=== PATIENT | female | born 1950 | race American Indian/Alaskan Native ===

== ENCOUNTER 2018-01-14 04:42 | Emergency (ER) | payer MEDICARE, OTHER ==
--- NOTE | 2018-01-14 05:58 | EDPHYS ---
Physician Documentation [facility] Name: Risa Estrada Age: 67 yrs Sex: Female : 1950 Arrival Date: 01/14/2018 Time: 04:45 Bed 13 Private MD: Maikol Chowdhury H ED Physician Albin Werner HPI: 01/14 05:59 This 67 yrs old Other Female presents to ER via Ambulatory with complaints of Cough. gs 05:59 The patient or guardian reports cough, that is intermittent, flu symptoms, arthralgias, gs low-grade fever. Onset: The symptoms/episode began/occurred yesterday. Severity of symptoms: At their worst the symptoms were moderate, in the emergency department the symptoms are unchanged. Modifying factors: the symptoms are aggravated by nothing. Associated signs and symptoms: Pertinent positives: fever, Pertinent negatives: chest pain. The patient has experienced similar episodes in the past, a few times. Historical: - Allergies: 04:56 No Known Allergies; ak1 - Home Meds: 04:56 amlodipine 10 mg tab 1 tab once daily [Active]; losartan 100 mg oral tab 1 tab once ak1 daily [Active]; Bystolic 10 mg oral tab 1 tab once daily [Active]; - PMHx: 04:56 Hypertension; ak1 - PSHx: 04:56 Hysterectomy; Cholecystectomy; ak1 - Immunization history:: Adult Immunizations up to date, Flu vaccine is up to date. - Social history:: Smoking status: Patient/guardian denies using tobacco. - Ebola Screening: : No symptoms or risks identified at this time. ROS: 05:59 ENT: Positive for nasal discharge, rhinorrhea. gs 05:59 All other systems are negative. Exam: 05:59 Head/Face: Normocephalic, atraumatic. Eyes: Pupils equal round and reactive to light, gs extra-ocular motions intact. Lids and lashes normal. Conjunctiva and sclera are non-icteric and not injected. Cornea within normal limits. Periorbital areas with no swelling, redness, or edema. ENT: Nares patent. No nasal discharge, no septal abnormalities noted. Tympanic membranes are normal and external auditory canals are clear. Oropharynx with no redness, swelling, or masses, exudates, or evidence of obstruction, uvula midline. Mucous membranes moist. Neck: Trachea midline, no thyromegaly or masses palpated, and no cervical lymphadenopathy. Supple, full range of motion without nuchal rigidity, or vertebral point tenderness. No Meningismus. Chest/axilla: Normal chest wall appearance and motion. Nontender with no deformity. No lesions are appreciated. Cardiovascular: Regular rate and rhythm with a normal S1 and S2. No gallops, murmurs, or rubs. Normal PMI, no JVD. No pulse deficits. Respiratory: Lungs have equal breath sounds bilaterally, clear to auscultation and percussion. No rales, rhonchi or wheezes noted. No increased work of breathing, no retractions or nasal flaring. Abdomen/GI: Soft, non-tender, with normal bowel sounds. No distension or tympany. No guarding or rebound. No evidence of tenderness throughout. Back: No spinal tenderness. No costovertebral tenderness. Full range of motion. Skin: Warm, dry with normal turgor. Normal color with no rashes, no lesions, and no evidence of cellulitis. MS/ Extremity: Pulses equal, no cyanosis. Neurovascular intact. Full, normal range of motion. Neuro: Awake and alert, GCS 15, oriented to person, place, time, and situation. Cranial nerves II-XII grossly intact. Motor strength 5/5 in all extremities. Sensory grossly intact. Cerebellar exam normal. Normal gait. 05:59 Constitutional: The patient appears alert, awake. Vital Signs: 04:52 BP 142 / 80; Pulse 94; Resp 18; Temp 99.1; Pulse Ox 99% on R/A; Weight 68.04 kg (R); ak1 Height 5 ft. 2 in. (157.48 cm) (R); Pain 4/10; 06:10 BP 121 / 77; Pulse 68; Resp 16; Pulse Ox 99% on R/A; jb4 04:52 Body Mass Index 27.44 (68.04 kg, 157.48 cm) ak1 MDM: 05:12 Patient medically screened. gs 05:59 Differential Diagnosis: Influenza Upper Respiratory Infection Viral Syndrome Pneumonia. gs Data reviewed: vital signs, nurses notes. Counseling: I had a detailed discussion with the patient and/or guardian regarding: the historical points, exam findings, and any diagnostic results supporting the discharge/admit diagnosis, lab results, radiology results, the need for outpatient follow up. Response to treatment: the patient's symptoms have markedly improved after treatment. 01/14 04:53 Order name: Flu; Complete Time: 05:52 jb4 01/14 05:13 Order name: XRAY Chest Pa And Lat (2 Views) Administered Medications: No medications were administered Disposition: 01/14/18 05:58 Discharged to Home. Impression: Acute upper respiratory infection, unspecified. - Condition is Stable. - Discharge Instructions: Upper Respiratory Infection, Adult. - Medication Reconciliation Form, Thank You Letter, Antibiotic Education, Prescription Opioid Use form. - Follow up: Private Physician; When: 2 - 3 days; Reason: Re-evaluation by your physician. Signatures: Dispatcher [employer] EDMS Anne-Marie Mcknight RN RN ak1 Luis Eduardo Zabala RN RN jb4 Albin Werner MD MD gs Corrections: (The following items were deleted from the chart) 06:04 05:58 01/14/2018 05:58 Discharged to Home. Impression: Acute upper respiratory gs infection, unspecified. Condition is Stable. Forms are Medication Reconciliation Form, Thank You Letter, Antibiotic Education, Prescription Opioid Use. Follow up: Emergency Department; When: 2 - 3 days; Reason: Re-evaluation by your physician. 06:11 06:04 01/14/2018 05:58 Discharged to Home. Impression: Acute upper respiratory jb4 infection, unspecified. Condition is Stable. Discharge Instructions: Upper Respiratory Infection, Adult. Forms are Medication Reconciliation Form, Thank You Letter, Antibiotic Education, Prescription Opioid Use. Follow up: Private Physician; When: 2 - 3 days; Reason: Re-evaluation by your physician.
--- NOTE | 2018-01-14 05:58 | ER ---
Nurse's Notes [facility] Name: Risa Estrada Age: 67 yrs Sex: Female : 1950 Arrival Date: 01/14/2018 Time: 04:45 Bed 13 Private MD: Maikol Chowdhury H Diagnosis: Acute upper respiratory infection, unspecified Presentation: 01/14 04:52 Presenting complaint: Patient states: cough, headache and body aches that started last ak1 night. pt family stated he thinks pt has the flu. Transition of care: patient was not received from another setting of care. Onset of symptoms was January 14, 2018. Risk Assessment: Do you want to hurt yourself or someone else? Patient reports no desire to harm self or others. Initial Sepsis Screen: Does the patient meet any 2 criteria? No. Patient's initial sepsis screen is negative. Does the patient have a suspected source of infection? No. Patient's initial sepsis screen is negative. Care prior to arrival: None. 04:52 Method Of Arrival: Ambulatory ak1 04:52 Acuity: ISIS 4 ak1 Historical: - Allergies: 04:56 No Known Allergies; ak1 - Home Meds: 04:56 amlodipine 10 mg tab 1 tab once daily [Active]; losartan 100 mg oral tab 1 tab once ak1 daily [Active]; Bystolic 10 mg oral tab 1 tab once daily [Active]; - PMHx: 04:56 Hypertension; ak1 - PSHx: 04:56 Hysterectomy; Cholecystectomy; ak1 - Immunization history:: Adult Immunizations up to date, Flu vaccine is up to date. - Social history:: Smoking status: Patient/guardian denies using tobacco. - Ebola Screening: : No symptoms or risks identified at this time. Screenin:04 Abuse screen: Denies threats or abuse. Nutritional screening: No deficits noted. jb4 Tuberculosis screening: No symptoms or risk factors identified. Fall Risk None identified. Assessment: 05:04 General: Appears in no apparent distress. comfortable, Behavior is calm, cooperative, jb4 appropriate for age. Pain: Complains of pain in Headache. Pain does not radiate. Pain currently is 5 out of 10 on a pain scale. Neuro: Level of Consciousness is awake, alert, obeys commands, Oriented to person, place, time, situation. Cardiovascular: Heart tones S1 S2 present Patient's skin is warm and dry. Respiratory: Reports cough that is Airway is patent Respiratory effort is even, unlabored, Respiratory pattern is regular, symmetrical, Breath sounds are clear bilaterally. GI: Reports nausea. : No signs and/or symptoms were reported regarding the genitourinary system. EENT: No signs and/or symptoms were reported regarding the EENT system. Derm: Skin is intact, Skin is pink, warm \T\ dry. Musculoskeletal: Circulation, motion, and sensation intact. 05:45 Reassessment: Pt back from x-ray. jb4 06:10 Reassessment: Patient appears in no apparent distress at this time. Patient and/or jb4 family updated on plan of care and expected duration. Pain level reassessed. Patient is alert, oriented x 3, equal unlabored respirations, skin warm/dry/pink. Vital Signs: 04:52 BP 142 / 80; Pulse 94; Resp 18; Temp 99.1; Pulse Ox 99% on R/A; Weight 68.04 kg (R); ak1 Height 5 ft. 2 in. (157.48 cm) (R); Pain 4/10; 06:10 BP 121 / 77; Pulse 68; Resp 16; Pulse Ox 99% on R/A; jb4 04:52 Body Mass Index 27.44 (68.04 kg, 157.48 cm) ak1 ED Course: 04:45 Patient arrived in ED. es 04:45 Maikol Chowdhury DO is Private Physician. es 04:52 Arm band placed on Patient placed in an exam room, on a stretcher, on pulse oximetry, ak1 Patient notified of wait time. 04:53 Luis Eduardo Zabala, RN is Primary Nurse. jb4 04:53 Triage completed. ak1 05:04 Patient has correct armband on for positive identification. Placed in gown. Bed in low jb4 position. Call light in reach. Side rails up X 1. Pulse ox on. NIBP on. 05:12 Albin Werner MD is Attending Physician. gs 05:38 Patient moved to radiology via wheelchair. kw 05:38 X-ray completed. Patient tolerated procedure well. kw 05:38 Patient moved back from radiology. kw 05:39 XRAY Chest Pa And Lat (2 Views) In Process Unspecified. EDMS 06:10 No provider procedures requiring assistance completed. Patient did not have IV access jb4 during this emergency room visit. Administered Medications: No medications were administered Outcome: 05:58 Discharge ordered by . 06:10 Discharged to home ambulatory. jb4 06:10 Condition: stable 06:10 Discharge instructions given to patient, family, Instructed on discharge instructions, follow up and referral plans. Demonstrated understanding of instructions, follow-up care. 06:11 Patient left the ED. jb4 Signatures: Dispatcher [employer] EDJasmina Peña Kimberlee kw Krenek, Amber, RN RN ak1 Luis Eduardo Zabala RN RN jb4 Albin Werner MD MD gs
[2018-01-14 06:17] VITALS: TEMP 99.1; O2SAT 99
[2018-01-14 06:18] VITALS: BP 121/77
--- NOTE | 2018-01-14 08:11 | RAD REPORT ---
EXAM DESCRIPTION: RAD - Chest Pa And Lat (2 Views) - 01/14/2018 5:40 am CLINICAL HISTORY: COUGH Chest pain. COMPARISON: CHEST PA AND LAT 2 VIEW dated 07/31/2011; CHEST PA AND LAT 2 VIEW dated 06/07/2011; CHEST SINGLE VIEW dated 05/17/2011; CHEST SINGLE VIEW dated 05/16/2011 FINDINGS: The lungs are clear. The heart is mildly enlarged in size. No displaced fractures. Cholecy stectomy clips. IMPRESSION: Mild cardiomegaly.
== END 2018-01-14 06:11 | disposition home or self-care (01) ==
LOC: ER 04:42
DX: J06.9 Acute upper respiratory infection, unspecified (principal); I51.7 Cardiomegaly; I10 Essential (primary) hypertension; Z79.899 Other long term (current) drug therapy
CPT/HCPCS: 71046; 87804; 99283

== ENCOUNTER 2019-11-07 14:55 | Observation (INO) | payer MEDICARE ==
[2019-11-07] MEDS ORDERED: ASPIRIN 81 MG CHEWABLE TABLET ONE (15:24)
[2019-11-07] MEDS ORDERED: NA CHLORIDE 0.9% 1,000 ML ONE (15:24)
[2019-11-07 15:40] LABS: Basophils % 0.5 % (0-1.3); Hematocrit 39.6 % (36.0-45.0); Lymphocytes % 33.5 % (15.3-44.8); MPV 8.8 fL (7.6-11.3); RBC Red Blood Cell Count 4.68 M/uL (3.86-4.86)
--- NOTE | 2019-11-07 15:45 | RAD REPORT ---
EXAM DESCRIPTION: RAD - Chest Single View - 11/07/2019 3:37 pm CLINICAL HISTORY: CHEST PAIN Chest pain. COMPARISON: Chest Pa And Lat (2 Views) dated 01/14/2018; CHEST PA AND LAT 2 VIEW dated 07/31/2011; ANG[facility] ST PA AND LAT 2 VIEW dated 06/07/2011; CHEST SINGLE VIEW dated 05/17/2011 FINDINGS: Portable technique limits examination quality. The lungs are grossly clear. The heart is normal in size. No displaced fractures. IMPRESSION: No acute intrathoracic process suspected.
[2019-11-07 16:00] LABS: ALT/SGPT 76 U/L (12-78); AST/SGOT 43 U/L (15-37); Alkaline Phosphatase 88 U/L (45-117); BUN Blood Urea Nitrogen 19 mg/dL (7-18); Bicarbonate 26 mmol/L (21-32); Bilirubin Direct 0.1 mg/dL (0-0.2); Bilirubin Total 0.4 mg/dL (0.2-1.0); Glucose Level 127 mg/dL (74-106); Lipase 180 U/L (73-393); Magnesium 2.2 mg/dL (1.8-2.4); NT PRO-BNP 41 pg/mL (<125); Potassium 3.8 mmol/L (3.5-5.1); Protein, Total 8.1 g/dL (6.4-8.2); Sodium Level 137 mmol/L (136-145); Troponin (Emerg Dept Use Only) < 0.02 ng/mL (0.0-0.045)
--- NOTE | 2019-11-07 16:01 | ER ---
Nurse's Notes [facility] Name: Risa Estrada Age: 69 yrs Sex: Female : 1950 Arrival Date: 11/07/2019 Time: 14:58 Bed 18 Private MD: Diagnosis: Chest pain, unspecified;Essential (primary) hypertension Presentation: 11/06 15:12 Chief complaint: Patient states: Chest pain everyday has been going on for a while, ca1 lasts 30 minutes then goes away. Today, it started this morning and persisted until lunch. Took some Tylenol with some relief. Chest pain on the L side, described as heavy, intermittent and non-radiating. DENIES SOB, nausea, lightheadedness with CP. Denies cough. Denies injury to chest. Denies other heart conditions than palpitations. Coronavirus screen: Client denies travel out of the [place] in the last 14 days. At this time, the client does not indicate any symptoms associated with coronavirus-19. Ebola Screen: Patient negative for fever greater than or equal to 101.5 degrees Fahrenheit, and additional compatible Ebola Virus Disease symptoms Patient denies exposure to infectious person. Patient denies travel to an Ebola-affected area in the 21 days before illness onset. No symptoms or risks identified at this time. Initial Sepsis Screen: Does the patient meet any 2 criteria? No. Patient's initial sepsis screen is negative. Does the patient have a suspected source of infection? No. Patient's initial sepsis screen is negative. Risk Assessment: Do you want to hurt yourself or someone else? Patient reports no desire to harm self or others. Onset of symptoms was November 07, 2019. 15:12 Method Of Arrival: Ambulatory ca1 15:12 Acuity: ISIS 3 ca1 Historical: - Allergies: 15:17 No Known Allergies; ca1 - Home Meds: 15:17 amlodipine 10 mg tab 1 tab once daily [Active]; Bystolic 10 mg Oral tab 1 tab once ca1 daily [Active]; losartan 100 mg Oral tab 1 tab once daily [Active]; - PMHx: 15:17 Hypertension; palpitations; gastric reflux; ca1 - PSHx: 15:17 Hysterectomy; Cholecystectomy; ca1 - Immunization history:: Adult Immunizations up to date. - Social history:: Smoking status: Patient denies any tobacco usage or history of. - Family history:: not pertinent. Screenin:02 Abuse screen: Denies threats or abuse. Nutritional screening: No deficits noted. rb1 Tuberculosis screening: No symptoms or risk factors identified. Fall Risk None identified. Assessment: 15:02 General: Appears in no apparent distress. comfortable, Behavior is calm, cooperative. rb1 Pain: Complains of pain in anterior aspect of left upper chest Pain does not radiate. Quality of pain is described as heavy, Pain began Intermittent, started this morning and lasted through lunch. Neuro: Level of Consciousness is awake, alert, obeys commands, Oriented to person, place, time, situation. Cardiovascular: Patient's skin is warm and dry. Respiratory: Airway is patent Respiratory effort is even, unlabored, Respiratory pattern is regular, symmetrical, Denies cough, shortness of breath. GI: No signs and/or symptoms were reported involving the gastrointestinal system. : No signs and/or symptoms were reported regarding the genitourinary system. 16:00 Reassessment: Patient appears in no apparent distress at this time. No changes from rb1 previously documented assessment. 16:15 Reassessment: Dr. Zhou is at the pt. bedside. rb1 16:50 Reassessment: Patient appears in no apparent distress at this time. Patient and/or rb1 family updated on plan of care and expected duration. Pain level reassessed. Patient is alert, oriented x 3, equal unlabored respirations, skin warm/dry/pink. Patient denies pain at this time. 16:58 Reassessment: Gave report to RAYMOND Mejía. Information from the [facility] was given. All rb1 questions asked and answered. Vital Signs: 15:12 BP 150 / 78; Pulse 89; Resp 18 S; Temp 97.7(O); Pulse Ox 100% on R/A; Weight 67.59 kg ca1 (R); Height 5 ft. 2 in. (157.48 cm) (R); Pain 4/10; 16:00 BP 146 / 78; Pulse 72; Resp 19; Pulse Ox 100% on R/A; rb1 16:49 BP 141 / 75; Pulse 85; Resp 21; Pulse Ox 100% ; rb1 15:12 Body Mass Index 27.25 (67.59 kg, 157.48 cm) ca1 ED Course: 14:58 Patient arrived in ED. ds1 15:02 Patient has correct armband on for positive identification. Bed in low position. Call rb1 light in reach. Side rails up X 1. groundwater monitoring technician on. Pulse ox on. NIBP on. Warm blanket given. 15:03 Vicente Del Cid MD is Attending Physician. [facility] 15:08 Lana Trevino, RN is Primary Nurse. rb1 15:15 Triage completed. ca1 15:17 Arm band placed on right wrist. ca1 15:25 Initial lab(s) drawn, by id, sent to lab. Inserted saline lock: 20 gauge in right ca1 antecubital area, using aseptic technique. Blood collected. Patient maintains SpO2 saturation greater than 95% on room air. 15:37 XRAY Chest (1 view) In Process Unspecified. EDNH 15:59 Fernando Zhou DO is Hospitalizing Provider. [facility] 17:29 No provider procedures requiring assistance completed. Patient admitted, IV remains in rb1 place. Administered Medications: 15:15 Drug: Aspirin Chewable Tablet 324 mg Route: PO; rb1 15:45 Follow up: Response: No adverse reaction rb1 15:27 Drug: NS 0.9% 1000 ml Route: IV; Rate: 75 ml/hr; Site: right antecubital; ca1 17:30 Follow up: IV Status: Infusion continued upon admission rb1 16:15 Drug: Lopressor (metoprolol TARTRATE) 50 mg Route: PO; rb1 17:00 Follow up: Response: No adverse reaction rb1 16:15 Drug: Pepcid 20 mg Route: IVP; Site: right antecubital; rb1 16:30 Follow up: Response: No adverse reaction rb1 16:25 Drug: Lovenox 1 mg/kg Route: Sub-Q; Site: right lower abdomen; rb1 16:40 Follow up: Response: No adverse reaction rb1 Output: 17:02 Urine: 1ml (Voided); Total: 1ml. rb1 Outcome: 16:00 Decision to Hospitalize by Provider. marianna 17:29 Admitted to Med/surg accompanied by tech, family with patient, via wheelchair, room rb1 215, with chart, Report called to RAYMOND Mejía 17:29 Condition: stable 17:29 Instructed on the need for admit. 17:31 Patient left the ED. rb1 Signatures: Dispatcher [employer] EDNH Vicente Del Cid MD MD cha Sanford, Demi ds1 Trevino, Lana, RN RN rb1 Acob, Lucita, RN RN ca1
--- NOTE | 2019-11-07 16:01 | EDPHYS ---
Physician Documentation [facility] Name: Risa Estrada Age: 69 yrs Sex: Female : 1950 Arrival Date: 11/07/2019 Time: 14:58 Bed 18 Private MD: ED Physician Vicente Del Cid HPI: 11/06 15:50 This 69 yrs old Other Female presents to ER via Ambulatory with complaints of Chest marianna Pain. 15:50 The patient or guardian reports chest pain that is located primarily in the anterior marianna chest wall, left. Onset: 1 day(s) ago. The pain does not radiate. Associated signs and symptoms: The patient has no apparent associated signs or symptoms. The chest pain is described as dull. Modifying factors: The symptoms are alleviated by nothing. the symptoms are aggravated by nothing. Severity of pain: At its worst the pain was mild in the emergency department the pain is unchanged. It is unknown whether or not the patient has had similar symptoms in the past. Historical: - Allergies: 15:17 No Known Allergies; ca1 - Home Meds: 15:17 amlodipine 10 mg tab 1 tab once daily [Active]; Bystolic 10 mg Oral tab 1 tab once ca1 daily [Active]; losartan 100 mg Oral tab 1 tab once daily [Active]; - PMHx: 15:17 Hypertension; palpitations; gastric reflux; ca1 - PSHx: 15:17 Hysterectomy; Cholecystectomy; ca1 - Immunization history:: Adult Immunizations up to date. - Social history:: Smoking status: Patient denies any tobacco usage or history of. - Family history:: not pertinent. ROS: 15:50 Constitutional: Negative for fever, chills, and weight loss, Eyes: Negative for injury, marianna pain, redness, and discharge, ENT: Negative for injury, pain, and discharge, Neck: Negative for injury, pain, and swelling, Respiratory: Negative for shortness of breath, cough, wheezing, and pleuritic chest pain, Abdomen/GI: Negative for abdominal pain, nausea, vomiting, diarrhea, and constipation, Back: Negative for injury and pain, : Negative for injury, bleeding, discharge, and swelling, MS/Extremity: Negative for injury and deformity, Skin: Negative for injury, rash, and discoloration, Neuro: Negative for headache, weakness, numbness, tingling, and seizure, Psych: Negative for depression, anxiety, suicide ideation, homicidal ideation, and hallucinations, Allergy/Immunology: Negative for hives, rash, and allergies, Endocrine: Negative for neck swelling, polydipsia, polyuria, polyphagia, and marked weight changes, Hematologic/Lymphatic: Negative for swollen nodes, abnormal bleeding, and unusual bruising. 15:50 Cardiovascular: Positive for chest pain. Exam: 15:50 Constitutional: This is a well developed, well nourished patient who is awake, alert, marianna and in no acute distress. Head/Face: Normocephalic, atraumatic. Eyes: Pupils equal round and reactive to light, extra-ocular motions intact. Lids and lashes normal. Conjunctiva and sclera are non-icteric and not injected. Cornea within normal limits. Periorbital areas with no swelling, redness, or edema. ENT: Nares patent. No nasal discharge, no septal abnormalities noted. Tympanic membranes are normal and external auditory canals are clear. Oropharynx with no redness, swelling, or masses, exudates, or evidence of obstruction, uvula midline. Mucous membranes moist. Neck: Trachea midline, no thyromegaly or masses palpated, and no cervical lymphadenopathy. Supple, full range of motion without nuchal rigidity, or vertebral point tenderness. No Meningismus. Chest/axilla: Normal chest wall appearance and motion. Nontender with no deformity. No lesions are appreciated. Cardiovascular: Regular rate and rhythm with a normal S1 and S2. No gallops, murmurs, or rubs. Normal PMI, no JVD. No pulse deficits. Respiratory: Lungs have equal breath sounds bilaterally, clear to auscultation and percussion. No rales, rhonchi or wheezes noted. No increased work of breathing, no retractions or nasal flaring. Abdomen/GI: Soft, non-tender, with normal bowel sounds. No distension or tympany. No guarding or rebound. No evidence of tenderness throughout. Back: No spinal tenderness. No costovertebral tenderness. Full range of motion. Skin: Warm, dry with normal turgor. Normal color with no rashes, no lesions, and no evidence of cellulitis. MS/ Extremity: Pulses equal, no cyanosis. Neurovascular intact. Full, normal range of motion. Neuro: Awake and alert, GCS 15, oriented to person, place, time, and situation. Cranial nerves II-XII grossly intact. Motor strength 5/5 in all extremities. Sensory grossly intact. Cerebellar exam normal. Normal gait. Psych: Awake, alert, with orientation to person, place and time. Behavior, mood, and affect are within normal limits. 15:50 Musculoskeletal/extremity: DVT Exam: No signs of deep vein thrombosis. no pain, no swelling, no tenderness, negative Homans' sign noted on exam, no appreciated bluish discoloration, no erythema, no increased warmth. Vital Signs: 15:12 BP 150 / 78; Pulse 89; Resp 18 S; Temp 97.7(O); Pulse Ox 100% on R/A; Weight 67.59 kg ca1 (R); Height 5 ft. 2 in. (157.48 cm) (R); Pain 4/10; 16:00 BP 146 / 78; Pulse 72; Resp 19; Pulse Ox 100% on R/A; rb1 16:49 BP 141 / 75; Pulse 85; Resp 21; Pulse Ox 100% ; rb1 15:12 Body Mass Index 27.25 (67.59 kg, 157.48 cm) ca1 MDM: 15:03 Patient medically screened. mairanna 15:54 Differential diagnosis: abnormal EKG, acute myocardial infarction, chest wall pain, marianna cholecystitis, costochondritis, esophagitis, pancreatitis, peptic ulcer disease, pulmonary embolus, stable angina, unstable angina. HEART Score: History: Moderately Suspicious (1), ECG: Normal (0), Age: > or = 65 years (2), Risk Factors: 1 or 2 risk factors (1), Troponin: < or = 1 x Normal Limit (0). The patient was given aspirin in the Emergency Department. The patient's deep vein thrombosis risk score was calculated as follows: Total Score: 0. This patient was found to be at low risk for a deep vein thrombosis by using the Well's assessment criteria. The patient's pulmonary embolism risk score was calculated as follows: Total Score: 0-2 points. This patient was found to be at low risk for a pulmonary embolism by using the Well's assessment criteria. WES Risk Score: TOTAL SCORE = 0. Data reviewed: vital signs, nurses notes, lab test result(s), EKG, radiologic studies, plain films. Data interpreted: color television console monitor: rate is 89 beats/min, rhythm is regular, Pulse oximetry: on room air is 100 %. Test interpretation: by ED physician or midlevel provider: ECG, plain radiologic studies. ED course: to obsdr valadez. 11/06 15:04 Order name: NT PRO-BNP; Complete Time: 16:09 11/06 15:04 Order name: Basic Metabolic Panel; Complete Time: 16:09 11/06 15:04 Order name: CBC with Diff; Complete Time: 15:48 11/06 15:04 Order name: LFT's; Complete Time: 16:11/06 15:04 Order name: Magnesium; Complete Time: 16:11/06 15:04 Order name: Troponin (emerg Dept Use Only); Complete Time: 16:11/06 15:04 Order name: XRAY Chest (1 view); Complete Time: 16: [facility] 11/06 15:04 Order name: EKG; Complete Time: 15:05 11/06 15:05 Order name: Lipase; Complete Time: 16:11/06 15:04 Order name: Cardiac monitoring; Complete Time: 15:17 11/06 15:04 Order name: EKG - Nurse/Tech; Complete Time: 15:17 11/06 15:04 Order name: IV Saline Lock; Complete Time: 15:11/06 15:04 Order name: Labs collected and sent; Complete Time: 15:27 11/06 15:04 Order name: O2 Per Protocol; Complete Time: 15:17 11/06 15:04 Order name: O2 Sat Monitoring; Complete Time: 15:17 [facility] Administered Medications: 15:15 Drug: Aspirin Chewable Tablet 324 mg Route: PO; rb1 15:45 Follow up: Response: No adverse reaction rb1 15:27 Drug: NS 0.9% 1000 ml Route: IV; Rate: 75 ml/hr; Site: right antecubital; ca1 17:30 Follow up: IV Status: Infusion continued upon admission rb1 16:15 Drug: Lopressor (metoprolol TARTRATE) 50 mg Route: PO; rb1 17:00 Follow up: Response: No adverse reaction rb1 16:15 Drug: Pepcid 20 mg Route: IVP; Site: right antecubital; rb1 16:30 Follow up: Response: No adverse reaction rb1 16:25 Drug: Lovenox 1 mg/kg Route: Sub-Q; Site: right lower abdomen; rb1 16:40 Follow up: Response: No adverse reaction rb1 Disposition: 11/07/19 16:00 Hospitalization ordered by Fernando Valadez for Observation. Preliminary diagnosis are Chest pain, unspecified, Essential (primary) hypertension. - Bed requested for Telemetry/MedSurg (observation). - Status is Observation. rb1 - Condition is Stable. - Problem is new. - Symptoms have improved. Signatures: Dispatcher [employer] EDBridget Mack RN RN Vicente Paz MD MD cha Barber, Rebecca, RN RN rb1 Acob, Lucita RN RN ca1 Corrections: (The following items were deleted from the chart) 16:46 16:00 Hospitalization Ordered by Fernando Valadez DO for Observation. Preliminary dw diagnosis is Chest pain, unspecified; Essential (primary) hypertension. Bed requested for Telemetry/MedSurg (observation). Status is Observation. Condition is Stable. Problem is new. Symptoms have improved. [facility] 17:31 16:46 11/07/2019 16:00 Hospitalization Ordered by Fernando Valadez DO for Observation. rb1 Preliminary diagnosis is Chest pain, unspecified; Essential (primary) hypertension. Bed requested for Telemetry/MedSurg (observation). Status is Observation. Condition is Stable. Problem is new. Symptoms have improved. dw
[2019-11-07] MEDS ORDERED: FAMOTIDINE 20 MG/2 ML VIAL IV ONE (16:25)
[2019-11-07] MEDS ORDERED: METOPROLOL TAR 50 MG TAB ONE (16:25)
[2019-11-07] MEDS ORDERED: ENOXAPARIN 60 MG/0.6 ML SQ ONE (16:25)
--- NOTE | 2019-11-07 16:42 | P.HP ---
Certification for Inpatient Patient admitted to: Observation With expected LOS: <2 Midnights Patient will require the following post-hospital care: None Practitioner: I am a practitioner with admitting privileges, knowledge of patient current condition, hospital course, and medical plan of care. Services: Services provided to patient in accordance with Admission requirements found in Title 42 Section 412.3 of the Code of Federal Regulations Patient History Date of Service: 11/07/19 Primary Care Provider: Dr. Chowdhury Reason for admission: Chest pain History of Present Illness: 69-year-old female with history of hypertension presented to the emergency room with chest pain. Patient reported chest pain this morning. It is mainly to the center of the chest. It was more of a heaviness. There was no radiation of pain noted. She denies any nausea, vomiting or shortness of breath. She reports no prior chest pain. She has seen Cardiology in the past with stress tests normal. This was about 3-5 years ago. She has noticed some edema to the lower extremities. Patient came to the ER for further evaluation. Vital signs stable. Blood pressure 150/78. Room-air saturations within normal range. CBC unremarkable. Troponin unremarkable. BMP unremarkable. Sodium 137 come potassium 3.8. BUN of 19, creatinine 1.1 with a GFR 50. Glucose 127. EKG shows no significant abnormalities. Patient admitted for further evaluation and observation. Allergies NKDA Allergy (Uncoded 02/01/15 04:58) Unknown Home medications list reviewed: Yes Home Medications: Nebivolol HCl [Bystolic] 10 mg PO DAILY 05/16/11 Pantoprazole Sodium [Protonix] 40 mg PO BID #60 tablet. 05/17/11 Valsartan [Diovan] 320 mg PO DAILY #30 tablet 05/17/11 - Past Medical/Surgical History Diabetic: No -: Hypertension -: Chronic renal disease stage 3 -: GERD -: Hysterectomy -: Cholecystectomy Psychosocial/ Personal History: Patient is - Family History Father -: Heart disease - Social History Smoking Status: Never smoker Alcohol use: No CD- Drugs: No Caffeine use: No Place of Residence: Home Review of Systems General: As per HPI Eyes: Unremarkable ENT: Unremarkable Respiratory: Unremarkable Cardiovascular: Chest Pain, Edema, As per HPI Gastrointestinal: Unremarkable Genitourinary: Unremarkable Musculoskeletal: Unremarkable Integumentary: Unremarkable Neurological: Unremarkable Lymphatics: Unremarkable Physical Examination - Physical Exam General: Alert, In no apparent distress, Oriented x3, Cooperative HEENT: Atraumatic, Mucous membr. moist/pink Neck: Supple Respiratory: Clear to auscultation bilaterally, Normal air movement Cardiovascular: Normal pulses, Regular rate/rhythm Gastrointestinal: Normal bowel sounds, Soft and benign, Non-distended, No ascites, No tenderness, No masses, No rebound, No guarding Musculoskeletal: No tenderness, No warmth Integumentary: Tenderness/swelling (Minimal pitting edema to the lower extremities bilateral.) Neurological: Normal speech, Normal strength at 5/5 x4 extr, Normal tone, Normal affect - Studies Laboratory Data (last 24 hrs) 11/07/19 15:22: WBC 6.0, Hgb 13.5, Hct 39.6, Plt Count 168 11/07/19 15:22: Sodium 137, Potassium 3.8, BUN 19 H, Creatinine 1.10, Glucose 127 H, Magnesium 2.2, Total Bilirubin 0.4, AST 43 H, ALT 76, Alkaline Phosphatase 88, Lipase 180 Assessment and Plan - Plan Impression: Chest pain Hypertension Chronic renal disease stage III GERD Plan: Chest pain: Patient will be admitted for further evaluation and treatment. Will monitor cardiac enzymes and telemetry. Will order echocardiogram to further evaluate. Cardiology consulted for further recommendation. Patient may require further cardiac evaluation to determine etiology of chest pain. Will provide aspirin, Lipitor and restart home blood pressure medications. Will provide DVT prophylaxis-Lovenox. Will continue to monitor and assess. Anticipate improvement and likely discharge tomorrow if workup unremarkable. Await further recommendations from cardiology. Hypertension: Restart home medication of Bystolic 10 mg daily, losartan 100 mg daily, and Norvasc 10 mg daily. Chronic renal disease stage III: This appears stable. Previous lab reviewed. Will recommend nephrology evaluation as an outpatient. GERD: Will provide medication. Discharge Plan: Home Plan to discharge in: 24 Hours - Advance Directives Does patient have a Living Will: No Does patient have a Durable POA for Healthcare: No - Code Status/Comfort Care Code Status Assessed: Yes (Patient is full code) Time Spent Managing Pts Care (In Minutes): 55
[2019-11-07] MEDS ORDERED: ONDANSETRON 4 MG/2 ML VIAL IV PRN (17:17)
[2019-11-07] MEDS ORDERED: ACETAMINOPHEN 500 MG TAB PO PRN (17:17)
[2019-11-07 18:30] LABS: CKMB Creatine Kinase MB 2.7 ng/mL (0.3-3.6); Creatine Phosphokinase 212 U/L (26-192); Troponin I < 0.02 ng/mL (0.0-0.045)
[2019-11-07] MEDS: ENOXAPARIN 40 MG/0.4 ML SQ SCH (18:56)
[2019-11-07] MEDS ORDERED: POTASSIUM CL SA 10 MEQ TAB PO ONE (19:00)
[2019-11-07] MEDS ORDERED: ATORVASTATIN 40 MG TAB PO SCH (21:00)
[2019-11-08 04:41] VITALS: BMI 25.7
[2019-11-08 04:58] LABS: Magnesium 2.3 mg/dL (1.8-2.4); Thyroid Stimulating Hormone 2.38 uIU/mL (0.360-3.740)
--- NOTE | 2019-11-08 05:39 | EKG ---
Test Date: 2019-11-07 Test Time: 15:15:02 Motor Checker: DI MEASUREMENT RESULTS: Intervals: Rate: 83 TN: 198 QRSD: 96 QT: 398 QTc: 467 Loiza: P: 54 TN: 198 QRS: 74 T: 69 INTERPRETIVE STATEMENTS: Normal sinus rhythm Normal ECG Compared to ECG 07/31/2011 12:16:44 No significant changes Electronically Signed On 11-08-19 05:38:06 CDT by Tello Santos
[2019-11-08] MEDS ORDERED: PANTOPRAZOLE 40MG TABLET PO SCH (07:30)
--- NOTE | 2019-11-08 07:45 | P.DS ---
Admission Date: 11/07/19 Discharge Date: 11/08/19 Primary Care Provider: Dr. Chowdhury Disposition: ROUTINE DISCHARGE Discharge Condition: GOOD Reason for Admission: Chest pain Consultations: Cardiology-Dr. Santos Procedures: CXR: FINDINGS: Portable technique limits examination quality. The lungs are grossly clear. The heart is normal in size. No displaced fra ctures. IMPRESSION: No acute intrathoracic process suspected. Medical Problem List: Chest pain, atypical Hypertension Chronic renal disease stage III GERD Possible early hyperlipidemia Brief History of Present Illness: 69-year-old female with history of hypertension presented to the emergency room with chest pain. Patient reported chest pain this morning. It is mainly to the center of the chest. It was more of a heaviness. There was no radiation of pain noted. She denies any nausea, vomiting or shortness of breath. She reports no prior chest pain. She has seen Cardiology in the past with stress tests normal. This was about 3-5 years ago. She has noticed some edema to the lower extremities. Patient came to the ER for further evaluation. Vital signs stable. Blood pressure 150/78. Room-air saturations within normal range. CBC unremarkable. Troponin unremarkable. BMP unremarkable. Sodium 137 come potassium 3.8. BUN of 19, creatinine 1.1 with a GFR 50. Glucose 127. EKG shows no significant abnormalities. Patient admitted for further evaluation and observation. Hospital Course: Patient presented with atypical chest pain. Chest x-ray unremarkable. Patient was admitted for further evaluation. No significant EKG changes noted. Cardiac enzymes unremarkable. LDL 117, total cholesterol 201. Patient likely with early hyperlipidemia. Patient has not been able tolerate statin medication in the past. Cardiology was consulted. Cardiology recommended no further inpatient evaluation. Echocardiogram performed. This can be followed up as an outpatient. Cardiology recommends outpatient stress test at this time. At discharge patient without significant chest pain. At discharge she may continue with aspirin 81 mg daily and fish oil 1000 mg 1 pill twice daily. Recommend follow up with cardiology within 1 week. Outpatient cardiac stress test will be arranged with Cardiology at that time. Patient with hypertension. This has remained stable. At discharge she may continue with Bystolic 10 mg daily, losartan 100 mg daily, and Norvasc 5 mg daily. Recommend to monitor blood pressure daily. Recommend to maintain blood pressure less than 150/80. Further adjustment can be done by her PCP. Patient likely with GERD. Patient has not seen GI in the past. At discharge patient will be provided Protonix 40 mg daily. Education on GERD will be provided. Recommend follow up with GI to further evaluate. Patient will likely require a EGD/colonoscopy in the near future to further address. Patient with chronic renal disease stage III. Previous lab reviewed. This appears stable. Renal ultrasound performed. This can be followed up as an outpatient. Recommend no further use of nonsteroidal anti-inflammatories. Future medications may need to be renally dose. Recommend to recheck lab-BMP in 1-2 weeks. Recommend nephrology consultation as an outpatient to further address and monitor. Vital Signs/Physical Exam: Temp Pulse Resp BP Pulse Ox 98.2 F 75 18 152/58 H 99 11/08/19 04:00 11/08/19 04:00 11/08/19 04:00 11/08/19 04:00 11/08/19 04:00 General: Alert, In no apparent distress, Oriented x3, Cooperative HEENT: Atraumatic Neck: Supple Respiratory: Clear to auscultation bilaterally, Normal air movement Cardiovascular: Normal pulses, Regular rate/rhythm Gastrointestinal: Normal bowel sounds, Soft and benign, Non-distended, No tenderness, No masses, No rebound, No guarding Musculoskeletal: No erythema, No tenderness, No warmth Integumentary: No tenderness/swelling, No erythema, No warmth, No cyanosis Neurological: Normal speech, Normal strength at 5/5 x4 extr, Normal tone, Normal affect Laboratory Data at Discharge: WBC 6.0 K/uL (4.3-10.9) 11/07/19 15:22 Hgb 13.5 g/dL (12.0-15.0) 11/07/19 15:22 Hct 39.6 % (36.0-45.0) 11/07/19 15:22 Plt Count 168 K/uL (152-406) 11/07/19 15:22 Sodium 141 mmol/L (136-145) 11/08/19 03:36 Potassium 4.0 mmol/L (3.5-5.1) 11/08/19 03:36 BUN 13 mg/dL (7-18) 11/08/19 03:36 Creatinine 0.92 mg/dL (0.55-1.3) 11/08/19 03:36 Glucose 106 mg/dL (74-106) 11/08/19 03:36 Magnesium 2.3 mg/dL (1.8-2.4) 11/08/19 03:36 Total Bilirubin 0.4 mg/dL (0.2-1.0) 11/07/19 15:22 AST 43 U/L (15-37) H 11/07/19 15:22 ALT 76 U/L (12-78) 11/07/19 15:22 Alkaline Phosphatase 88 U/L (45-117) 11/07/19 15:22 Troponin I < 0.02 ng/mL (0.0-0.045) 11/07/19 18:00 Triglycerides 75 mg/dL (<150) 11/08/19 03:36 Cholesterol 201 mg/dL (<200) H 11/08/19 03:36 HDL Cholesterol 73 mg/dL (40-60) H 11/08/19 03:36 Cholesterol/HDL Ratio 2.75 11/08/19 03:36 Lipase 180 U/L (73-393) 11/07/19 15:22 Home Medications: Nebivolol HCl [Bystolic] 10 mg PO DAILY 05/16/11 Amlodipine [Norvasc*] 5 mg PO BEDTIME 11/07/19 Losartan Potassium [Cozaar] 100 mg PO BEDTIME 11/07/19 Aspirin [Aspirin EC 81 MG] 81 mg PO DAILY #30 tablet. 11/08/19 Docosahexanoic AC/Epa [Fish Oil 1,000 MG CAP] 1 cap PO BID #60 cap 11/08/19 Pantoprazole [Protonix Tab*] 40 mg PO DAILY #30 tab 11/08/19 New Medications: Aspirin [Aspirin EC 81 MG] 81 mg PO DAILY #30 tablet. Docosahexanoic AC/Epa [Fish Oil 1,000 MG CAP] 1 cap PO BID #60 cap Pantoprazole [Protonix Tab*] 40 mg PO DAILY #30 tab Patient Discharge Instructions: 1. Recommend follow up with PCP in 1 week to follow up this hospitalization. 2. Patient presented with atypical chest pain. Chest x-ray unremarkable. Patient was admitted for further evaluation. No significant EKG changes noted. Cardiac enzymes unremarkable. LDL 117, total cholesterol 201. Patient likely with early hyperlipidemia. Patient has not been able tolerate statin medication in the past. Cardiology was consulted. Cardiology recommended no further inpatient evaluation. Echocardiogram performed. This can be followed up as an outpatient. Cardiology recommends outpatient stress test at this time. At discharge patient without significant chest pain. At discharge she may continue with aspirin 81 mg daily and fish oil 1000 mg 1 pill twice daily. Recommend follow up with cardiology within 1 week. Outpatient cardiac stress test will be arranged with Cardiology at that time. 3. Patient with hypertension. This has remained stable. At discharge she may continue with Bystolic 10 mg daily, losartan 100 mg daily, and Norvasc 5 mg daily. Recommend to monitor blood pressure daily. Recommend to maintain blood pressure less than 150/80. Further adjustment can be done by her PCP. 4. Patient likely with GERD. Patient has not seen GI in the past. At discharge patient will be provided Protonix 40 mg daily. Education on GERD will be provided. Recommend follow up with GI to further evaluate. Patient will likely require a EGD/colonoscopy in the near future to further address. 5. Patient with chronic renal disease stage III. Previous lab reviewed. This appears stable. Renal ultrasound performed. This can be followed up as an outpatient. Recommend no further use of nonsteroidal anti-inflammatories. Future medicati ons may need to be renally dose. Recommend to recheck lab-BMP in 1-2 weeks. Recommend nephrology consultation as an outpatient to further address and monitor. Diet: AHA Activity: Ad arlene Time spent managing pt's care (in minutes): 55
[2019-11-08] MEDS: ENOXAPARIN 40 MG/0.4 ML SQ SCH (07:50)
[2019-11-08 07:52] VITALS: BP 146/72
[2019-11-08 07:56] VITALS: O2SAT 98
[2019-11-08 08:09] VITALS: TEMP 98.3
[2019-11-08] MEDS ORDERED: LOSARTAN POTASSIUM 50 MG TABLET PO SCH (09:00)
[2019-11-08] MEDS ORDERED: ASPIRIN EC 81 MG TAB PO SCH (09:00)
[2019-11-08] MEDS ORDERED: NEBIVOLOL HCL 5 MG TAB PO SCH (09:00)
[2019-11-08] MEDS ORDERED: AMLODIPINE 5 MG TAB PO SCH (09:00)
--- NOTE | 2019-11-08 09:50 | RAD REPORT ---
EXAM DESCRIPTION: US - Renal Ultrasound-Complete - 11/08/2019 9:17 am CLINICAL HISTORY: evaluate for chronic renal disease Flank pain COMPARISON: No comparisons FINDINGS: Both kidneys are normal in size, shape and echotexture. The right kidney measures 9.7 x 5.0 x 4.6 cm. No hydronephrosis, focal mass or perinephric fluid. The left kidney measures 10.5 x 5.1 x 2.4 cm. No hydronephrosis, focal mass or perinephric fluid. The urinary bladder is incompletely distended without gross abnormality seen. IMPRESSION: Unremarkable renal sonogram.
--- NOTE | 2019-11-09 11:05 | ECHO ---
HEIGHT: 5 ft 2 in WEIGHT: 140 lb 0 oz DATE OF STUDY: 11/08/[address]: Fernando Zhou DO 2-DIMENSIONAL: YES M.MODE: YES DOPPLER: YES COLOR FLOW: YES TDS: NO PORTABLE: NO DEFINITY: NO BUBBLE STUDY: NO DIAGNOSIS: CHEST PAIN, HYPERTENSION CARDIAC HISTORY: CATHERIZATION: NO SURGERY: NO PROSTHETIC VALVE: NO PACEMAKER: NO MEASUREMENTS (cm) DIASTOLIC (NORMALS) SYSTOLIC (NORMALS) IVSd 1.1 (0.6-1.2) LA Diam 3.5 (1.9-4.0) LVEF 72% LVIDd 4.0 (3.5-5.7) LVIDs 2.4 (2.0-3.5) %FS 41% LVPWd 1.2 (0.6-1.2) Ao Diam 2.4 (2.0-3.7) 2 DIMENSIONAL ASSESSMENT: RIGHT ATRIUM: NORMAL LEFT ATRIUM: NORMAL RIGHT VENTRICLE: NORMAL LEFT VENTRICLE: NORMAL TRICUSPID VALVE: NORMAL MITRAL VALVE: NORMAL PULMONIC VALVE: NORMAL AORTIC VALVE: NORMAL PERICARDIAL EFFUSION: NONE AORTIC ROOT: NORMAL LEFT VENTRICULAR WALL MOTION: NORMAL DOPPLER/COLOR FLOW: NORMAL COMMENTS: NORMAL 2D ECHOCARDIOGRAM WITH DOPPLER. NO WALL MOTION ABNORMALITY. NO EFFUSION. TECHNOLOGIST: Laura DE LA TORRE
--- NOTE | 2019-11-11 10:51 | CON ---
Date of Consultation: 11/08/[address] The patient admitted to Dr. Zhou' service on 11/07/2019. I saw the patient on 11/08/2019. Reason For Consultation: Chest pain. History Of Present Illness: Ms. Estrada is a 69-year-old patient with history of hypertension, palpi tation, gastroesophageal reflux disease, typically followed by Dr. Chowdhury. She came in with sharp chest pain midepigastric radiating to the left chest. She could point to it with a finger or 2. It was n ot exertional. There was an occasional increased with breathing. She denied nausea, vomiting, diaph oresis, PND, orthopnea, pedal edema, palpitation, or syncope. She has already ruled out for WI by th e time I saw her. Past Medical History: As stated above. Allergies: NONE. Review of Systems: Negative. Social History: Negative. Family History: Noncontributory. Medications: At home include Bystolic, Norvasc, and Cozaar. Physical Examination: Vital Signs: Stable, afebrile. HEENT: Negative. Neck: Supple without any bruit, lymphadenopathy, JVD, or thyromegaly. Chest: Clear. Cardiac: Normal. Abdomen: Benign. Extremities: Revealed no clubbing, cyanosis, or edema. Diagnostic Data: Within normal limits. Impression And Plan: Atypical chest pain in a patient with history of hypertension, gastroesophageal reflux disease, palpitation, WI has been ruled out. Chest x-ray, EKG are normal. Her echocardiogra m was done and that was normal. I would treat her with a proton pump inhibitor. Continue her home m edication for her blood pressure and she can go home and I will make an arrangement for an outpatient stress test. I think she should have an MPI. LUIS/IVORY Voice ID: [id number] Report ID: [id number]
== END 2019-11-08 11:20 | disposition home or self-care (01) ==
LOC: ER 14:55 → 2ND 17:02
PROVIDERS: ADMIT Family Medicine; ATTEND Family Medicine
DX: R07.89 Other chest pain (principal); I12.9 Hypertensive chronic kidney disease with stage 1 through stage 4 chronic kidney disease, or unspecified chronic kidney disease; N18.3 Chronic kidney disease, stage 3 (moderate); K21.9 Gastro-esophageal reflux disease without esophagitis; Z20.828 Contact with and (suspected) exposure to other viral communicable diseases
CPT/HCPCS: 96361; 93005; 93306; 85025; 80048 ×2; 36415; 83735 ×2; 82550; 80061; 80076; 84443; 84484 ×2; 82553; 84439; 83690; 83880; 71045; 76770; 96372; 96374; 99285; U0002; J1650 ×3; J7030; G0378 ×3

== ENCOUNTER 2020-01-04 21:48 | Observation (INO) | payer MEDICARE ==
[2020-01-04 22:30] LABS: Absolute Lymphocytes (CBC) 2.6 K/uL (0.7-4.9); Hematocrit 40.2 % (36.0-45.0); Lymphocytes % 36.9 % (15.3-44.8); RBC Red Blood Cell Count 4.85 M/uL (3.86-4.86)
[2020-01-04 22:32] LABS: Protime INR 0.99
[2020-01-04 22:54] LABS: ALT/SGPT 89 U/L (12-78); AST/SGOT 44 U/L (15-37); Albumin 4.3 g/dL (3.4-5.0); Alkaline Phosphatase 96 U/L (45-117); BUN Blood Urea Nitrogen 18 mg/dL (7-18); Bicarbonate 28 mmol/L (21-32); Bilirubin Direct 0.2 mg/dL (0-0.2); Bilirubin Total 0.6 mg/dL (0.2-1.0); Glucose Level 111 mg/dL (74-106); Magnesium 2.3 mg/dL (1.8-2.4); NT PRO-BNP 31 pg/mL (<125); Potassium 3.6 mmol/L (3.5-5.1); Protein, Total 8.5 g/dL (6.4-8.2); Sodium Level 134 mmol/L (136-145); Troponin (Emerg Dept Use Only) < 0.02 ng/mL (0.0-0.045)
[2020-01-04] MEDS ORDERED: ONDANSETRON 4 MG/2 ML VIAL ONE (23:52)
[2020-01-04] MEDS ORDERED: MORPHINE 2 MG/ML SYR ONE (23:52)
--- NOTE | 2020-01-05 00:19 | EDPHYS ---
Physician Documentation [facility] Name: Risa Estrada Age: 69 yrs Sex: Female : 1950 Arrival Date: 01/04/2020 Time: 21:48 Bed 8 Private MD: ED Physician Crescencio Roberto HPI: 01/03 23:30 This 69 yrs old Other Female presents to ER via Ambulatory with complaints of Chest mh7 Pain. 23:30 The patient or guardian reports chest pain that is located primarily in the anterior mh7 chest wall, left. Onset: today. The pain radiates to the left arm, back. Associated signs and symptoms: Pertinent negatives: abdominal pain, cough, diaphoresis, dizziness, headache, lower extremity pain, lower extremity swelling, lightheadedness, nausea, near syncope, palpitations, recent travel, shortness of breath, syncope, vomiting. The chest pain is described as sharp. Duration: The patient or guardian reports multiple episodes, that are intermittent, that wax and wane, with no pattern. Modifying factors: The symptoms are alleviated by nothing. the symptoms are aggravated by nothing. Severity of pain: At its worst the pain was moderate today, in the emergency department the pain has improved moderately. Historical: - Allergies: 21:55 No Known Allergies; jd3 - PMHx: 21:55 Gastric Reflux; Hypertension; palpitations; jd3 - PSHx: 21:55 Hysterectomy; Cholecystectomy; jd3 - Immunization history:: Adult Immunizations up to date. - Social history:: Smoking status: Patient denies any tobacco usage or history of. ROS: 23:30 Constitutional: Negative for fever, chills, and weight loss, Eyes: Negative for injury, mh7 pain, redness, and discharge, ENT: Negative for injury, pain, and discharge, Neck: Negative for injury, pain, and swelling, Respiratory: Negative for shortness of breath, cough, wheezing, and pleuritic chest pain, Abdomen/GI: Negative for abdominal pain, nausea, vomiting, diarrhea, and constipation, Back: Negative for injury and pain, : Negative for injury, bleeding, discharge, and swelling, MS/Extremity: Negative for injury and deformity, Skin: Negative for injury, rash, and discoloration, Neuro: Negative for headache, weakness, numbness, tingling, and seizure, Psych: Negative for depression, anxiety, suicide ideation, homicidal ideation, and hallucinations, Allergy/Immunology: Negative for hives, rash, and allergies, Endocrine: Negative for neck swelling, polydipsia, polyuria, polyphagia, and marked weight changes, Hematologic/Lymphatic: Negative for swollen nodes, abnormal bleeding, and unusual bruising. Exam: 23:30 Constitutional: This is a well developed, well nourished patient who is awake, alert, mh7 and in no acute distress. Head/Face: Normocephalic, atraumatic. Eyes: Pupils equal round and reactive to light, extra-ocular motions intact. Lids and lashes normal. Conjunctiva and sclera are non-icteric and not injected. Cornea within normal limits. Periorbital areas with no swelling, redness, or edema. Neck: Trachea midline, no thyromegaly or masses palpated, and no cervical lymphadenopathy. Supple, full range of motion without nuchal rigidity, or vertebral point tenderness. No Meningismus. Chest/axilla: Normal chest wall appearance and motion. Nontender with no deformity. No lesions are appreciated. Cardiovascular: Regular rate and rhythm with a normal S1 and S2. No gallops, murmurs, or rubs. Normal PMI, no JVD. No pulse deficits. Respiratory: Lungs have equal breath sounds bilaterally, clear to auscultation and percussion. No rales, rhonchi or wheezes noted. No increased work of breathing, no retractions or nasal flaring. Abdomen/GI: Soft, non-tender, with normal bowel sounds. No distension or tympany. No guarding or rebound. No evidence of tenderness throughout. Back: No spinal tenderness. No costovertebral tenderness. Full range of motion. Skin: Warm, dry with normal turgor. Normal color with no rashes, no lesions, and no evidence of cellulitis. MS/ Extremity: Pulses equal, no cyanosis. Neurovascular intact. Full, normal range of motion. Neuro: Awake and alert, GCS 15, oriented to person, place, time, and situation. Cranial nerves II-XII grossly intact. Motor strength 5/5 in all extremities. Sensory grossly intact. Cerebellar exam normal. Normal gait. Psych: Awake, alert, with orientation to person, place and time. Behavior, mood, and affect are within normal limits. Vital Signs: 21:55 BP 140 / 81; Pulse 102; Resp 17 S; Temp 98.2(TE); Pulse Ox 100% on R/A; Weight 63.96 kg jd3 (R); Height 5 ft. 2 in. (157.48 cm) (R); Pain 5/10; 23:11 BP 137 / 80; Pulse 87; Resp 18; Pulse Ox 99% on R/A; ea 01/04 00:24 BP 141 / 72; Pulse 85; Resp 18; Pulse Ox 99% on R/A; ea 01:53 BP 127 / 79; Pulse 80; Resp 16; Temp 98.1; Pulse Ox 98% ; ea 01/03 21:55 Body Mass Index 25.79 (63.96 kg, 157.48 cm) jd3 MDM: 00:15 Differential diagnosis: acute myocardial infarction, acute pericarditis, anxiety, mh7 coronary artery disease chest wall pain, congestive heart failure costochondritis, pericarditis, pneumonia, pneumothorax. HEART Score: History: Moderately Suspicious (1), ECG: Non specific repolarization disturbance / LBTB / PM (1), Age: > or = 65 years (2), Risk Factors: 1 or 2 risk factors (1), [Hypercholesterolemia] Troponin: < or = 1 x Normal Limit (0), Total Score = 5. Data reviewed: vital signs, nurses notes, old medical records, lab test result(s), CBC, electrolytes, urinalysis, EKG, radiologic studies, plain films. Data interpreted: Pulse oximetry: on room air is 99 %. Interpretation: normal. Counseling: I had a detailed discussion with the patient and/or guardian regarding: the historical points, exam findings, and any diagnostic results supporting the discharge/admit diagnosis, the presence of at least one elevated blood pressure reading (>120/80) during this emergency department visit, lab results, radiology results, the need for further work-up and treatment in the hospital. 00:[address] [facility] 01/03 22:16 Order name: Basic Metabolic Panel; Complete Time: : 01/03 22:16 Order name: CBC with Diff; Complete Time: : 01/03 22:16 Order name: LFT's; Complete Time: : 01/03 22:16 Order name: Magnesium; Complete Time: : 01/03 22:16 Order name: NT PRO-BNP; Complete Time: 23: 01/03 22:16 Order name: PT-INR; Complete Time: 23: 01/03 22:16 Order name: Troponin (emerg Dept Use Only); Complete Time: 23: 01/03 22:16 Order name: XRAY Chest (1 view) 01/03 23:51 Order name: COVID-19 01/03 23:51 Order name: CORONAVIRUS [facility] 01/04 01:39 Order name: SARS-COV-2 RT PCR [facility] 01/03 22:16 Order name: EKG; Complete Time: 22: 01/03 22:16 Order name: Cardiac monitoring; Complete Time: : 01/03 22:16 Order name: EKG - Nurse/Tech; Complete Time: : 01/03 22:16 Order name: IV Saline Lock; Complete Time: 22: 01/03 22:16 Order name: Labs collected and sent; Complete Time: : 01/03 22:16 Order name: O2 Per Protocol; Complete Time: 22: 01/03 22:16 Order name: O2 Sat Monitoring; Complete Time: 22: Administered Medications: 01/03 23:43 Drug: morphine 2 mg {Note: raas 0.} Route: IVP; Site: right antecubital; 01/04 00:56 Follow up: Response: No adverse reaction; Pain is decreased; RASS: Alert and Calm (0) 01/03 23:43 Drug: Zofran (Ondansetron) 4 mg Route: IVP; Site: right antecubital; 01/04 00:56 Follow up: Response: No adverse reaction 00:55 Drug: Aspirin Chewable Tablet 324 mg Route: PO; ea 01:54 Follow up: Response: No adverse reaction ea Disposition: 01/05/20 00:18 Hospitalization ordered by Ady Armijo for Observation. Preliminary diagnosis is Chest pain, unspecified. - Bed requested for Telemetry/MedSurg (observation). - Status is Observation. ea - Condition is Stable. - Problem is new. - Symptoms have improved. Signatures: Dispatcher [employer] [facility] Carmella Lopez RN RN Helms, Yudy, RN Yoel Tolentino ea, Jonathon, RN RN jd3 Crescencio Roberto MD MD mh7 Corrections: (The following items were deleted from the chart) 01/03 21:55 21:54 Immunization history: Adult Immunizations jd3 jd3 01/04 01: 00:18 Hospitalization Ordered by Ady Armijo MD for Observation. Preliminary mw diagnosis is Chest pain, unspecified. Bed requested for Telemetry/MedSurg (observation). Status is Observation. Condition is Stable. Problem is new. Symptoms have improved. mh7 01:58 01:27 01/05/2020 00:18 Hospitalization Ordered by Ady Armijo MD for Observation. rut Preliminary diagnosis is Chest pain, unspecified. Bed requested for Telemetry/MedSurg (observation). Status is Observation. Condition is Stable. Problem is new. Symptoms have improved. mw
--- NOTE | 2020-01-05 00:19 | ER ---
Nurse's Notes [facility] Name: Risa Estrada Age: 69 yrs Sex: Female : 1950 Arrival Date: 01/04/2020 Time: 21:48 Bed 8 Private MD: Diagnosis: Chest pain, unspecified Presentation: 01/03 21:53 Chief complaint: Patient states: "I am having chest pain that comes into my left arm jd3 and into my back.". Coronavirus screen: At this time, the client does not indicate any symptoms associated with coronavirus-19. Ebola Screen: Patient negative for fever greater than or equal to 101.5 degrees Fahrenheit, and additional compatible Ebola Virus Disease symptoms. Initial Sepsis Screen: Does the patient meet any 2 criteria? No. Patient's initial sepsis screen is negative. Does the patient have a suspected source of infection? No. Patient's initial sepsis screen is negative. Risk Assessment: Do you want to hurt yourself or someone else? Patient reports no desire to harm self or others. Onset of symptoms was January 04, 2020. 21:53 Method Of Arrival: Ambulatory jd3 21:53 Acuity: ISIS 3 jd3 Historical: - Allergies: 21:55 No Known Allergies; jd3 - PMHx: 21:55 Gastric Reflux; Hypertension; palpitations; jd3 - PSHx: 21:55 Hysterectomy; Cholecystectomy; jd3 - Immunization history:: Adult Immunizations up to date. - Social history:: Smoking status: Patient denies any tobacco usage or history of. Screenin:20 Abuse screen: Denies threats or abuse. Nutritional screening: No deficits noted. ea Tuberculosis screening: No symptoms or risk factors identified. Fall Risk IV access (20 points). Assessment: 22:22 General: Appears in no apparent distress. Behavior is calm, cooperative, appropriate ea for age. Pain: Complains of pain in chest Pain radiates to back and left arm Pain began 1 day ago. Neuro: Level of Consciousness is awake, alert, obeys commands, Oriented to person, place, time, situation. Cardiovascular: Patient's skin is warm and dry. Respiratory: Airway is patent Respiratory effort is even, unlabored, Respiratory pattern is regular, symmetrical. Derm: Skin is pink, warm \\T\\ dry. 23:31 Reassessment: Patient and/or family updated on plan of care and expected duration. Pain ea level reassessed. Patient is alert, oriented x 3, equal unlabored respirations, skin warm/dry/pink. Awaiting on lab results. 01/04 01:53 Reassessment: Patient and/or family updated on plan of care and expected duration. Pain ea level reassessed. Patient is alert, oriented x 3, equal unlabored respirations, skin warm/dry/pink. Report given to Yudy ANDRADE. Vital Signs: 01/03 21:55 BP 140 / 81; Pulse 102; Resp 17 S; Temp 98.2(TE); Pulse Ox 100% on R/A; Weight 63.96 kg jd3 (R); Height 5 ft. 2 in. (157.48 cm) (R); Pain 5/10; 23:11 BP 137 / 80; Pulse 87; Resp 18; Pulse Ox 99% on R/A; ea 01/04 00:24 BP 141 / 72; Pulse 85; Resp 18; Pulse Ox 99% on R/A; ea 01:53 BP 127 / 79; Pulse 80; Resp 16; Temp 98.1; Pulse Ox 98% ; ea 01/03 21:55 Body Mass Index 25.79 (63.96 kg, 157.48 cm) j ED Course: 01/03 21:48 Patient arrived in ED. as 21:54 Triage completed. jd3 22:03 Arm band placed on. EKG completed in triage. Results shown to MD. j 22:11 Yudy Helms, RAYMOND is Primary Nurse. ea 22:11 Crescencio Roberto MD is Attending Physician. [facility] 22:18 Inserted saline lock: 20 gauge in right antecubital area, using aseptic technique. ea Blood collected. Patient maintains SpO2 saturation greater than 95% on room air. 22:23 Patient has correct armband on for positive identification. Bed in low position. Call ea light in reach. die sizer on. Pulse ox on. NIBP on. 22:38 XRAY Chest (1 view) In Process Unspecified. EDMS 01/04 00:18 Ady Armijo MD is Hospitalizing Provider. [facility] 01:52 No provider procedures requiring assistance completed. Patient admitted, IV remains in ea place. Administered Medications: 01/03 23:43 Drug: morphine 2 mg {Note: raas 0.} Route: IVP; Site: right antecubital; ea 01/04 00:56 Follow up: Response: No adverse reaction; Pain is decreased; RASS: Alert and Calm (0) ea 01/03 23:43 Drug: Zofran (Ondansetron) 4 mg Route: IVP; Site: right antecubital; ea 01/04 00:56 Follow up: Response: No adverse reaction ea 00:55 Drug: Aspirin Chewable Tablet 324 mg Route: PO; ea 01:54 Follow up: Response: No adverse reaction Outcome: 00:18 Decision to Hospitalize by Provider. 7 01:52 Admitted to Med/surg accompanied by tech, room 209, Report called to Yudy ANDRADE ea 01:52 Condition: stable 01:52 Instructed on the need for admit, Demonstrated understanding of instructions. 01:58 Patient left the ED. rut Signatures: Dispatcher [employer] Sintia Gray Elena, RN RN ea Davies, Jonathon, RN RN jd3 Holmes, Maurice, MD MD 7 Corrections: (The following items were deleted from the chart) 01/03 21:55 21:54 Immunization history: Adult Immunizations joseph ruiz
--- NOTE | 2020-01-05 00:47 | P.HP ---
Certification for Inpatient Patient admitted to: Observation With expected LOS: <2 Midnights Patient will require the following post-hospital care: None Practitioner: I am a practitioner with admitting privileges, knowledge of patient current condition, hospital course, and medical plan of care. Services: Services provided to patient in accordance with Admission requirements found in Title 42 Section 412.3 of the Code of Federal Regulations <Florencio De La Rosa - Last Filed: 01/05/20 00:41> Patient History Date of Service: 01/05/20 Primary Care Provider: Dr. Chowdhury Reason for admission: Chest Pain History of Present Illness: This is a 69-year-old female with a history of hypertension, palpitation, gastro esophageal reflux, that comes into the emergency room today for chest pain that started around 2:00 p.m. this afternoon but progressed tonight. Patient stated that she had radiation of pain to the back into the left arm. Describes the pain as kind of a sore feeling and that her arm felt achy and had some numbness. Patient had been seen for previous episode of chest pain in October and which troponins were negative at that time but had not followed up since then. Patient was worked up in the emergency room and was found to have no acute changes on EKG, chest x-ray, or 1st troponin. Labs otherwise without acute findings. Medicine was consulted at that time for observation secondary to chest pain with family history and hypertension. Home medications list reviewed: Yes - Past Medical/Surgical History Diabetic: No -: Hypertension -: Chronic renal disease stage 3 -: GERD - reflux -: Hysterectomy -: Cholecystectomy Psychosocial/ Personal History: Patient is - Family History Father -: Heart disease - Social History Smoking Status: Never smoker Smoking therapy provided: No Alcohol use: No CD- Drugs: No Caffeine use: No Place of Residence: Home <Almita De La Rosashua - Last Filed: 01/05/20 00:41> Date of Service: 01/05/20 - Family History Father -: Hypertension Mother History Unknown: Yes Notes: Hip fracture- <Ady Armijo - Last Filed: 01/05/20 09:30> Allergies NKDA Allergy (Uncoded 02/01/15 04:58) Unknown Home Medications: Nebivolol HCl [Bystolic] 10 mg PO DAILY 05/16/11 Amlodipine [Norvasc*] 5 mg PO DAILY 11/07/19 Losartan Potassium [Cozaar] 100 mg PO DAILY 11/07/19 Aspirin [Aspirin EC 81 MG] 81 mg PO DAILY #30 tablet. 11/08/19 Pantoprazole [Protonix Tab*] 40 mg PO DAILY #30 tab 11/08/19 Review of Systems General: Unremarkable Eyes: Unremarkable ENT: Unremarkable Respiratory: Unremarkable Cardiovascular: Chest Pain Gastrointestinal: Unremarkable Musculoskeletal: Unremarkable Integumentary: Unremarkable Neurological: Unremarkable Lymphatics: Unremarkable <Florencio De La Rosa - Last Filed: 01/05/20 00:41> Physical Examination - Vital Signs Temperature: 98.2 F Blood Pressure: 140/81 Pulse: 88 Respirations: 16 Pulse Ox (%): 100 (Room air) - Physical Exam General: Alert, In no apparent distress, Oriented x3, Cooperative HEENT: Normocephalic, PERRLA, Mucous membr. moist/pink, EOMI Neck: Supple, 2+ carotid pulse no bruit, JVD not distended, No Thyromegaly Respiratory: Clear to auscultation bilaterally, Normal air movement Cardiovascular: No edema, Normal pulses, Regular rate/rhythm, Normal S1 S2, No gallops, No rubs, No murmurs Capillary refill: <2 Seconds Gastrointestinal: Normal bowel sounds, Soft and benign, Non-distended, No ascites, No tenderness, No masses, No rebound, No guarding Musculoskeletal: No clubbing, No swelling, No contractures, No erythema, No tenderness, No warmth Integumentary: No rashes, No breakdown, No significant lesion, No tenderness/swelling, No erythema, No warmth, No cyanosis Neurological: Normal speech, Normal strength at 5/5 x4 extr, Normal tone, Sensation intact, Cranial nerves 3-12 intact, Normal affect Lymphatics: No axilla or inguinal lymphadenopathy - Studies Laboratory Data (last 24 hrs) 01/04/20 22:18: PT 11.7, INR 0.99 01/04/20 22:18: WBC 7.0, Hgb 14.1, Hct 40.2, Plt Count 167 01/04/20 22:18: Sodium 134 L, Potassium 3.6, BUN 18, Creatinine 0.99, Glucose 111 H, Magnesium 2.3, Total Bilirubin 0.6, AST 44 H, ALT 89 H, Alkaline Phosphatase 96 <Florencio De La Rosa - Last Filed: 01/05/20 00:41> - Studies Laboratory Data (last 24 hrs) 01/04/20 22:18: PT 11.7, INR 0.99 01/04/20 22:18: WBC 7.0, Hgb 14.1, Hct 40.2, Plt Count 167 01/04/20 22:18: Sodium 134 L, Potassium 3.6, BUN 18, Creatinine 0.99, Glucose 111 H, Magnesium 2.3, Total Bilirubin 0.6, AST 44 H, ALT 89 H, Alkaline Phosphatase 96 <Ady Armijo - Last Filed: 01/05/20 09:30> Assessment and Plan - Problems (Diagnosis) (1) Hypertension Current Visit: Yes Status: Chronic Qualifiers: Hypertension type: essential hypertension Qualified Code(s): I10 - Essential (primary) hypertension (2) Chest pain Current Visit: Yes Status: Acute Qualifiers: Chest pain type: unspecified Qualified Code(s): R07.9 - Chest pain, unspecified - Plan 1. Patient will be assessed throughout the night and will have serial troponins drawn 2. Cardiology will be consulted. Will await further recommendation for cardiac workup. 3. Blood pressure managed for systolic pressure of 160 or higher and diastolic pressure 110 are higher 4. Pain control will be continued for chest pain Discharge Plan: Home Plan to discharge in: 24 Hours - Advance Directives Does patient have a Living Will: No Does patient have a Durable POA for Healthcare: No - Code Status/Comfort Care Code Status Assessed: No Critical Care: No Time Spent Managing Pts Care (In Minutes): 70 <Florencio De La Rosa - Last Filed: 01/05/20 00:41> - Plan Plan of care discussed with Florencio De La Rosa, and I agree with the management plan as noted above. Patient seen this morning - no pain since yesterday, no weakness/numbness. feeling much better this morning Troponin negative x2 so far. Will discuss with cardiology and pending 3rd troponin this morning. <Ady Armijo - Last Filed: 01/05/20 09:30>
[2020-01-05] MEDS ORDERED: ASPIRIN 81 MG CHEWABLE TABLET ONE (01:07)
[2020-01-05] MEDS ORDERED: ACETAMINOPHEN 500 MG TAB PO PRN (02:00)
[2020-01-05] MEDS ORDERED: MORPHINE 4 MG/ML SYR IV PRN (02:00)
[2020-01-05] MEDS ORDERED: ONDANSETRON 4 MG/2 ML VIAL IV PRN (02:00)
[2020-01-05 02:10] VITALS: BMI 24.7
[2020-01-05 08:43] VITALS: O2SAT 99
--- NOTE | 2020-01-05 08:47 | RAD REPORT ---
EXAM DESCRIPTION: Niru Single View01/04/2020 10:38 pm CLINICAL HISTORY: Chest pain COMPARISON: October 2019 FINDINGS: The lungs appear clear of acute infiltrate. The heart is normal size IMPRESSION: No acute abnormalities displayed
[2020-01-05] MEDS ORDERED: NEBIVOLOL HCL 5 MG TAB PO SCH (09:00)
[2020-01-05] MEDS ORDERED: ASPIRIN EC 81 MG TAB PO SCH (09:00)
[2020-01-05] MEDS ORDERED: PANTOPRAZOLE 40MG TABLET PO SCH (09:30)
--- NOTE | 2020-01-05 14:52 | CON ---
Date of Consultation: 01/05/2020 Reason For Consultation: Chest pain. History Of Present Illness: A 69-year-old female, history of hypertension, chronic kidney disease, p resented with chest pain. It started yesterday, progressed throughout and at night. The pain worsen ed. She presented to the emergency room. The pain radiates to the shoulder and to the left upper ext remity. At this moment, she is chest pain free. The pain is not related to exertion and no dyspnea or orthopnea. Past Medical History: As outlined above in HPI. Medications: Refer to reconciliation sheet for detailed list. Allergies: NO KNOWN DRUG ALLERGIES. Family History: No premature coronary artery disease or cancer. Social History: Does not smoke or drink. Does not use any drugs. Review of Systems: All systems reviewed and they were negative except for mentioned in the HPI. Physical Examination: Vital Signs: Temperature is 98.0, pulse 81, breathing at 18, blood pressure 133/73, satting 98% on r oom air. General: Pleasant middle-aged female, in no distress. Head and Neck: Pupils are equal, reactive to light. Intact eye movements. No JVD. No cervical lym phadenopathy. Neck is supple. Thyroid is not enlarged. Lungs: Clear to auscultation bilaterally. No rhonchi, rales, or crackles. No accessory muscle use Heart: Regular rate and rhythm. No extra sounds. Abdomen: Soft, nontender. Bowel sounds positive. No organomegaly. No masses or hernia. No rigidi ty or rebound. Extremities: No edema, clubbing, cyanosis. Intact pulses. Skin: No rashes. Neurologic: Alert, awake, oriented x3. No acute focal deficits appreciated. Investigations: Troponins x3 are negative. Creatinine is 0.99. White blood cell count 7, hemoglobi n 14.1. Assessment And Recommendation: Chest pain. It is atypical. Cardiac enzymes are negative. EKG with out specific abnormalities. If the patient remains chest pain free, she can be released to follow up as an outpatient with exercise stress test and an echo. Please place the patient on baby aspirin an d sublingual nitroglycerin as needed basis. I appreciate the consult. /IVORY Voice ID: [id number] Report ID: [id number]
[2020-01-05 14:55] VITALS: BP 133/74; TEMP 99
--- NOTE | 2020-01-05 22:27 | P.DS ---
Admission Date: 01/05/20 Discharge Date: 01/05/20 Primary Care Provider: Dr. Chowdhury Disposition: ROUTINE DISCHARGE Discharge Condition: GOOD Reason for Admission: Chest Pain Consultations: Cardiology - Dr. Snow Procedures: CXR (01/04): no acute abnormalities displayed. Problem List: Chest Pain Hypertension Chronic renal disease stage 3 GERD Brief History of Present Illness: 69-year-old female with a history of hypertension, palpitation, gastro esophageal reflux, that comes into the emergency room today for chest pain that started around 2:00 p.m. this afternoon but progressed tonight. Patient stated that she had radiation of pain to the back into the left arm. Describes the pain as kind of a sore feeling and that her arm felt achy and had some numbness. Patient had been seen for previous episode of chest pain in October and which troponins were negative at that time but had not followed up since then. Patient was worked up in the emergency room and was found to have no acute changes on EKG, chest x-ray, or 1st troponin. Labs otherwise without acute findings. Medicine was consulted at that time for observation secondary to chest pain with family history and hypertension. Hospital Course: Troponins negative x 3, had a brief <5second episode of right sided chest pain that resolved on its own. Cardiology evaluated patient. EKG was without ischemic abnormalities. She was discharged home to follow up with Cardiology as an outpatient for exercise stress test and an echocardiogram. Sublingual nitroglycerin tablets were prescribed on discharge. She is to continue her home medications, including 81mg aspirin. Vital Signs/Physical Exam: Temp Pulse Resp BP Pulse Ox 99.0 F 72 19 133/74 99 01/05/20 12:00 01/05/20 12:00 01/05/20 12:00 01/05/20 12:01/05/20 12:00 General: Alert, In no apparent distress, Oriented x3 HEENT: Sclerae nonicteric Respiratory: Clear to auscultation bilaterally, Normal air movement Cardiovascular: No edema, Regular rate/rhythm Gastrointestinal: Soft and benign, Non-distended Musculoskeletal: No tenderness Integumentary: No rashes Neurological: Normal speech, Normal affect Laboratory Data at Discharge: WBC 7.0 K/uL (4.3-10.9) 01/04/20 22:18 Hgb 14.1 g/dL (12.0-15.0) 01/04/20 22:18 Hct 40.2 % (36.0-45.0) 01/04/20 22:18 Plt Count 167 K/uL (152-406) 01/04/20 22:18 PT 11.7 SECONDS (9.5-12.5) 01/04/20 22:18 INR 0.99 01/04/20 22:18 Sodium 134 mmol/L (136-145) L 01/04/20 22:18 Potassium 3.6 mmol/L (3.5-5.1) 01/04/20 22:18 BUN 18 mg/dL (7-18) 01/04/20 22:18 Creatinine 0.99 mg/dL (0.55-1.3) 01/04/20 22:18 Glucose 111 mg/dL (74-106) H 01/04/20 22:18 Magnesium 2.3 mg/dL (1.8-2.4) 01/04/20 22:18 Total Bilirubin 0.6 mg/dL (0.2-1.0) 01/04/20 22:18 AST 44 U/L (15-37) H 01/04/20 22:18 ALT 89 U/L (12-78) H 01/04/20 22:18 Alkaline Phosphatase 96 U/L (45-117) 01/04/20 22:18 Troponin I < 0.02 ng/mL (0.0-0.045) 01/05/20 06:13 Triglycerides 40 mg/dL (<150) 01/05/20 06:13 Cholesterol 149 mg/dL (<200) 01/05/20 06:13 HDL Cholesterol 83 mg/dL (40-60) H 01/05/20 06:13 Cholesterol/HDL Ratio 1.80 01/05/20 06:13 Home Medications: Nebivolol HCl [Bystolic] 10 mg PO DAILY 05/16/11 Amlodipine [Norvasc*] 5 mg PO DAILY 11/07/19 Losartan Potassium [Cozaar] 100 mg PO DAILY 11/07/19 Aspirin [Aspirin EC 81 MG] 81 mg PO DAILY #30 tablet. 11/08/19 Pantoprazole [Protonix Tab*] 40 mg PO DAILY #30 tab 11/08/19 Nitroglycerin 0.4 mg SL SEECOM #30 tab.subl 01/05/20 New Medications: Nitroglycerin 0.4 mg SL SEECOM #30 tab.subl Patient Discharge Instructions: follow up with PCP within 1 week. follow up with Dr. Santos / Dr. Snow's office for outpatient stress test / possible echocardiogram. no changes to your home medications. Diet: AHA Activity: Ad arlene Followup: Maikol Chowdhury DO, DO [Primary Care Provider] - Blu Snow MD [ACTIVE - CAN ADMIT] - Time spent managing pt's care (in minutes): 35
== END 2020-01-05 17:59 | disposition home or self-care (01) ==
LOC: ER 21:48 → ERHOLD 01-05 → 2ND 01-05 01:53
PROVIDERS: ADMIT Hospitalist; ATTEND Hospitalist
DX: R07.9 Chest pain, unspecified (principal); I12.9 Hypertensive chronic kidney disease with stage 1 through stage 4 chronic kidney disease, or unspecified chronic kidney disease; N18.30 Chronic kidney disease, stage 3 unspecified; K21.9 Gastro-esophageal reflux disease without esophagitis; Z20.828 Contact with and (suspected) exposure to other viral communicable diseases; R94.31 Abnormal electrocardiogram [ECG] [EKG]
CPT/HCPCS: 93005; 85025; 80048; 36415; 83735; 85610; 80061; 80076; 84484 ×3; 83880; 71045; 96375; 96374; 99285; U0003; J2270; J2405; G0378

== ENCOUNTER 2020-05-18 14:44 | Emergency (ER) | payer MEDICARE ==
[2020-05-18 18:07] LABS: Albumin 4.1 g/dL (3.4-5.0); Bilirubin Direct 0.2 mg/dL (0-0.2); Bilirubin Total 0.6 mg/dL (0.2-1.0); Potassium 3.5 mmol/L (3.5-5.1); Protein, Total 8.2 g/dL (6.4-8.2)
[2020-05-18] MEDS ORDERED: MAGNES/ALUMIN/SIMET 30ML UCUP ONE (18:09)
[2020-05-18] MEDS ORDERED: LIDOCAINE VISCOUS 2% SOLN 15 ML UDC ONE (18:09)
[2020-05-18 18:14] LABS: Absolute Lymphocytes (CBC) 1.3 K/uL (0.7-4.9); Basophils % 0.3 % (0-1.3); Hematocrit 40.5 % (36.0-45.0); Lymphocytes % 15.5 % (15.3-44.8); MPV 9.3 fL (7.6-11.3); RBC Red Blood Cell Count 4.79 M/uL (3.86-4.86)
--- NOTE | 2020-05-18 18:53 | ER ---
Nurse's Notes [facility] Name: Risa Estrada Age: 70 yrs Sex: Female : 1950 Arrival Date: 05/18/2020 Time: 14:47 Bed 19 Private MD: Maikol Chowdhury H Diagnosis: Unspecified abdominal pain Presentation: 05/18 15:06 Chief complaint: Burning abdominal pain that radiates to back x 2 weeks. Also c/o hb bilateral knee and shoulder pain and recent unintentional weight loss. Denies N/V/D/fever. Coronavirus screen: At this time, the client does not indicate any symptoms associated with coronavirus-19. Ebola Screen: No symptoms or risks identified at this time. Initial Sepsis Screen: Does the patient meet any 2 criteria? No. Patient's initial sepsis screen is negative. Does the patient have a suspected source of infection? No. Patient's initial sepsis screen is negative. Risk Assessment: Do you want to hurt yourself or someone else? Patient reports no desire to harm self or others. Onset of symptoms was May 02, 2020. 15:06 Method Of Arrival: Ambulatory hb 15:06 Acuity: ISIS 3 hb Historical: - Allergies: 15:08 No Known Allergies; hb - Home Meds: 15:08 amlodipine 10 mg tab 1 tab once daily [Active]; Bystolic 10 mg Oral tab 1 tab once hb daily [Active]; losartan 100 mg Oral tab 1 tab once daily [Active]; - PMHx: 15:08 Gastric Reflux; Hypertension; palpitations; hb - PSHx: 15:08 Hysterectomy; Cholecystectomy; hb - Immunization history:: Adult Immunizations up to date. - Social history:: Smoking status: Patient denies any tobacco usage or history of. Screenin:01 Abuse screen: Denies threats or abuse. Nutritional screening: No deficits noted. bw Tuberculosis screening: No symptoms or risk factors identified. Fall Risk None identified. Assessment: 18:01 Pain: Complains of pain in back and abdomen. Neuro: No deficits noted. Cardiovascular: bw No deficits noted. Respiratory: No deficits noted. GI: Bowel sounds present X 4 quads. Abd is soft Abdomen is tender to palpation. : No deficits noted. EENT: No deficits noted. Derm: No deficits noted. Musculoskeletal: Reports weakness in right leg and left leg. Vital Signs: 15:06 BP 154 / 86; Pulse 102; Resp 16; Temp 97.8; Pulse Ox 100% on R/A; Pain 7/10; hb ED Course: 14:47 Patient arrived in ED. mr 14:47 Maikol Chowdhury DO is Private Physician. mr 15:06 Arm band placed on. hb 15:07 Triage completed. hb 17:00 Kwame Patel NP is PHCP. pm1 17:01 Eric Armijo MD is Attending Physician. pm1 17:41 Holli Lopez RN is Primary Nurse. bw 17:44 Inserted saline lock: 20 gauge in right antecubital area, using aseptic technique. 4 Blood collected. 18:01 Patient has correct armband on for positive identification. Call light in reach. Side bw rails up X 1. Side rails up X2. Pulse ox on. NIBP on. Warm blanket given. 18:01 No provider procedures requiring assistance completed. 19:16 Primary Nurse role handed off by Holli Lopez RN mw2 19:26 IV discontinued, intact, bleeding controlled, No redness/swelling at site. Pressure bw dressing applied. Administered Medications: 18:02 Drug: GI Cocktail without - (Maalox Suspension 30 ml, Lidocaine Liquid 2 % 15 bw ml) Route: PO; Outcome: 18:52 Discharge ordered by . pm1 19:26 Discharged to home ambulatory. bw 19:26 Condition: stable 19:26 Discharge instructions given to patient, Instructed on discharge instructions, follow up and referral plans. medication usage, Demonstrated understanding of instructions, follow-up care, medications, Prescriptions given X 1. 19:27 Patient left the ED. Signatures: Yari Calhoun Kwame Patel, [employer] SUPERVISOR pm1 Brenda Roger RN RN Tracy Grimes 2 Mike Medina 4 Holli Lopez RN RN Corrections: (The following items were deleted from the chart) 15:09 15:06 Chief complaint: Burning abdominal pain that radiates to back x 2 weeks. Denies hb N/V/D/fever. hb
--- NOTE | 2020-05-18 18:53 | EDPHYS ---
Physician Documentation [facility] Name: Risa Estrada Age: 70 yrs Sex: Female : 1950 Arrival Date: 05/18/2020 Time: 14:47 Bed 19 Private MD: Maikol Chowdhury H ED Physician Eric Armijo HPI: 05/18 17:25 This 70 yrs old Other Female presents to ER via Ambulatory with complaints of Abdominal pm1 Pain. 17:25 The patient presents with abdominal pain in the epigastric area. pm1 17:25 Onset: The symptoms/episode began/occurred 2 week(s) ago. The symptoms radiate to back. pm1 Associated signs and symptoms: Pertinent positives: bilateral knee pain and weakness, Pertinent negatives: nausea, vomiting, and diarrhea, chest pain, constipation, fever, shortness of breath. The symptoms are described as burning. Modifying factors: The symptoms are alleviated by nothing, the symptoms are aggravated by food. Severity of pain: in the emergency department the pain is unchanged. The patient has been recently seen by a physician: Dr. Figueroa with similar presenting complaints, EGD on 05/07/2020 and instructed to start taking her Protonix as directed. Historical: - Allergies: 15:08 No Known Allergies; hb - Home Meds: 15:08 amlodipine 10 mg tab 1 tab once daily [Active]; Bystolic 10 mg Oral tab 1 tab once hb daily [Active]; losartan 100 mg Oral tab 1 tab once daily [Active]; - PMHx: 15:08 Gastric Reflux; Hypertension; palpitations; hb - PSHx: 15:08 Hysterectomy; Cholecystectomy; hb - Immunization history:: Adult Immunizations up to date. - Social history:: Smoking status: Patient denies any tobacco usage or history of. ROS: 17:25 Constitutional: Negative for fever, chills, and weight loss, Cardiovascular: Negative pm1 for chest pain, palpitations, and edema, Respiratory: Negative for shortness of breath, cough, wheezing, and pleuritic chest pain. 17:25 Back: Negative for injury and pain, : Negative for injury, bleeding, discharge, and swelling, Skin: Negative for injury, rash, and discoloration. 17:25 Neuro: Negative for headache, weakness, numbness, tingling, and seizure. 17:25 Abdomen/GI: Positive for abdominal pain, Negative for nausea, vomiting, and diarrhea, constipation, black/tarry stool, rectal pain, rectal bleeding. 17:25 MS/extremity: Positive for pain, of the right knee and left knee. Exam: 17:25 Constitutional: This is a well developed, well nourished patient who is awake, alert, pm1 and in no acute distress. Head/Face: Normocephalic, atraumatic. Chest/axilla: Normal chest wall appearance and motion. Nontender with no deformity. No lesions are appreciated. 17:25 Back: No spinal tenderness. No costovertebral tenderness. Full range of motion. Skin: Warm, dry with normal turgor. Normal color with no rashes, no lesions, and no evidence of cellulitis. MS/ Extremity: Pulses equal, no cyanosis. Neurovascular intact. Full, normal range of motion. 17:25 Cardiovascular: Exam negative for acute changes, Rate: normal, Rhythm: regular, Pulses: no pulse deficits are appreciated. 17:25 Respiratory: Exam negative for acute changes, respiratory distress, shortness of breath. 17:25 Abdomen/GI: Exam negative for acute changes, Inspection: abdomen appears normal, Palpation: abdomen is soft and non-tender, in all quadrants. 17:25 Neuro: Exam negative for acute changes, Orientation: is normal, Mentation: is normal, Motor: is normal, moves all fours, Sensation: is normal, no obvious gross deficits. Vital Signs: 15:06 BP 154 / 86; Pulse 102; Resp 16; Temp 97.8; Pulse Ox 100% on R/A; Pain 7/10; hb MDM: 17:01 Patient medically screened. pm1 17:25 Refusal of service: The patient/guardian displays adequate decision making capability pm1 and despite a detailed discussion of alternatives, benefits, risks, and consequences refuses: CT Scan, Reports CT scan in April that was negative. Has a copy of her CT scan report and has the results of her EGD that show esophagitis at cardia sphincter and hemorrhagic gastritis. Patient stopped taking her Protonix for many months since she read somewhere that Protonix was not good for her kidneys. EGD performed on may 07, 2020 and she has not been taking the medications as directed. 18:44 Data reviewed: vital signs. Data interpreted: Pulse oximetry: on room air is 100 %. pm1 Interpretation: normal. Counseling: I had a detailed discussion with the patient and/or guardian regarding: the historical points, exam findings, and any diagnostic results supporting the discharge/admit diagnosis, lab results, the need for outpatient follow up, for definitive care, a diabetes nurse, to return to the emergency department if symptoms worsen or persist or if there are any questions or concerns that arise at home. 18:44 ED course: Patient does not want to take Protonix for her GERD and has had a history of pm1 non-compliance with it due to reading somewhere that it is bad for her kidneys. She asked Dr. Figueroa if it will hurt her kidney and she did not like the response that he did not know. Therefore will change the patient's medication from Protonix to Prilosec. Prilosec does not have any dosage adjustment for renal function. Showed that to the patient and she said she would be happy to take it. A PPI for the patient is better than no PPI at all due. 05/18 17:25 Order name: Basic Metabolic Panel; Complete Time: 18:39 pm1 05/18 17:25 Order name: CBC with Diff; Complete Time: 18:39 pm1 05/18 17:25 Order name: Hepatic Function; Complete Time: 18:39 pm1 05/18 17:25 Order name: Lipase; Complete Time: 18:39 pm1 05/18 17:25 Order name: IV Saline Lock; Complete Time: 17:45 pm1 05/18 17:25 Order name: Labs collected and sent; Complete Time: 17:45 pm1 Administered Medications: 18:02 Drug: GI Cocktail without - (Maalox Suspension 30 ml, Lidocaine Liquid 2 % 15 bw ml) Route: PO; Disposition: 05/19 07:51 Co-signature as Attending Physician, Eric Armijo MD. rn Disposition: 05/18/20 18:52 Discharged to Home. Impression: Unspecified abdominal pain. - Condition is Stable. - Discharge Instructions: Abdominal Pain, Adult, Gastroesophageal Reflux Disease, Adult. - Prescriptions for Prilosec 20 mg Oral Capsule, Delayed Release(E.C.) - take 1 capsule by ORAL route once daily; 30 capsule. - Medication Reconciliation Form, Thank You Letter, Antibiotic Education, Prescription Opioid Use form. - Follow up: Emergency Department; When: As needed; Reason: Worsening of condition. Follow up: Private Physician; When: 2 - 3 days; Reason: Recheck today's complaints, Continuance of care, Re-evaluation by your physician. - Problem is new. - Symptoms have improved. Signatures: Dispatcher [employer] EDMS Eric Armijo MD MD rn Marinas, Patrick, [employer]PATCH SUPERVISOR [employer] SUPERVISOR pm1 Brenda Roger RN RN Holli Lopez RN RN Corrections: (The following items were deleted from the chart) 05/18 19:27 18:52 05/18/2020 18:52 Discharged to Home. Impression: Unspecified abdominal pain. bw Condition is Stable. Forms are Medication Reconciliation Form, Thank You Letter, Antibiotic Education, Prescription Opioid Use. Follow up: Emergency Department; When: As needed; Reason: Worsening of condition. Follow up: Private Physician; When: 2 - 3 days; Reason: Recheck today's complaints, Continuance of care, Re-evaluation by your physician. Problem is new. Symptoms have improved. pm1
[2020-05-18 23:38] VITALS: BP 154/86; TEMP 97.8; O2SAT 100
== END 2020-05-18 19:27 | disposition home or self-care (01) ==
LOC: ER 14:44
DX: R10.13 Epigastric pain (principal); Z91.14 Patient's other noncompliance with medication regimen; K21.9 Gastro-esophageal reflux disease without esophagitis; I10 Essential (primary) hypertension
CPT/HCPCS: 36415; 80048; 80076; 83690; 85025; 99284

== ENCOUNTER 2021-05-31 19:25 | Inpatient (IN) | payer MEDICARE, OTHER ==
--- NOTE | 2021-05-31 21:25 | RAD REPORT ---
EXAM DESCRIPTION: RAD - Chest Single View - 05/31/2021 9:20 pm CLINICAL HISTORY: Tension and left leg numbness Chest pain. COMPARISON: Chest Single View dated 01/04/2020; Chest Single View dated 11/07/2019; Chest Pa And Lat (2 Views) dated 01/14/2018; CHEST PA AND LAT 2 VIEW dated 07/31/2011 FINDINGS: Portable technique limits examination quality. The lungs are grossly clear. The heart is normal in size. No displaced fractures. IMPRESSION: No acute intrathoracic process suspected.
[2021-05-31] MEDS ORDERED: ALPRAZOLAM 0.25 MG TABLET ONE (22:35)
[2021-05-31 22:39] LABS: Absolute Lymphocytes (CBC) 1.2 K/uL (0.7-4.9); Hematocrit 36.6 % (36.0-45.0); Lymphocytes % 16.2 % (15.3-44.8); MPV 8.1 fL (7.6-11.3); RBC Red Blood Cell Count 4.47 M/uL (3.86-4.86)
[2021-06-01 00:08] LABS: Potassium 3.3 mmol/L (3.5-5.1); Troponin High Sensitivity 4.5 pg/mL (<58.9)
[2021-06-01] MEDS ORDERED: NA CHLORIDE 0.9% 1,000 ML ONE ×2 (00:39→04:41)
[2021-06-01] MEDS ORDERED: POTASSIUM 25 MEQ EFFERV TAB ONE (00:39)
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
--- NOTE | 2021-06-01 00:50 | ER ---
Nurse's Notes [facility] Name: Risa Estrada Age: 71 yrs Sex: Female : 1950 Arrival Date: 05/31/2021 Time: 19:29 Bed 20 Private MD: Diagnosis: Hypo-osmolality and hyponatremia;Hypokalemia;Hypertensive heart disease without heart failure;Generalized anxiety disorder;Adjustment disorder with anxiety Presentation: 05/31 20:00 Chief complaint: Patient states: her BP at home was high at home around 177/76 and her sm5 legs are numb starting around noon today. states the numbness comes and goes. Coronavirus screen: Vaccine status: Patient reports receiving the 2nd dose of the covid vaccine. Ebola Screen: No symptoms or risks identified at this time. Initial Sepsis Screen: Does the patient meet any 2 criteria? No. Patient's initial sepsis screen is negative. Does the patient have a suspected source of infection? No. Patient's initial sepsis screen is negative. Risk Assessment: Do you want to hurt yourself or someone else? Patient reports no desire to harm self or others. Onset of symptoms was May 31, 2021 at 12:00. 20:00 Method Of Arrival: Ambulatory sm5 20:00 Acuity: ISIS 3 sm5 Triage Assessment: 20:03 General: Appears in no apparent distress. Behavior is cooperative. Pain: Complains of sm5 pain in back. Neuro: No deficits noted. Level of Consciousness is awake, alert, obeys commands, Oriented to person, place, time, situation. Neuro: Reports numbness in right leg and left leg since 12pm. Cardiovascular: No deficits noted. Historical: - Allergies: 20:02 Lipitor; sm5 - Home Meds: 20:02 amlodipine 10 mg tab 1 tab once daily [Active]; Bystolic 10 mg Oral tab 1 tab once sm5 daily [Active]; losartan 100 mg Oral tab 1 tab once daily [Active]; - PMHx: 20:02 Gastric Reflux; Hypertension; palpitations; Chronic Kidney Disease; sm5 - Immunization history:: Client reports receiving the 2nd dose of the Covid vaccine. - Social history:: Smoking status: Patient denies any tobacco usage or history of. Screenin:04 Abuse screen: Denies threats or abuse. Denies injuries from another. Nutritional sm5 screening: No deficits noted. Tuberculosis screening: No symptoms or risk factors identified. Fall Risk None identified. Assessment: 22:05 General: Appears in no apparent distress. Behavior is calm, cooperative, appropriate ag7 for age, Smells of Reports. Pain: Complains of pain in occipital area Pain does not radiate. Pain currently is 4 out of 10 on a pain scale. Quality of pain is described as aching, Pain began suddenly, Is continuous, Alleviated by nothing. Neuro: Level of Consciousness is awake, alert, obeys commands, Oriented to Appropriate for age Health Care Coach are equal bilaterally Moves all extremities. Reports numbness in medial aspect of right calf, right [place] and left leg Denies. Cardiovascular: Heart tones S1 S2 present Capillary refill < 3 seconds in bilateral fingers toes Clubbing of nail beds is absent Patient's skin is warm and dry. Pulses are palpable in right radial artery, right dorsalis pedis artery, left radial artery and left dorsalis pedis artery Edema is absent. Rhythm is regular. Respiratory: Airway is patent Trachea midline Respiratory effort is even, unlabored, Respiratory pattern is regular, symmetrical, Breath sounds are clear bilaterally. 23:00 Reassessment: Patient and/or family updated on plan of care and expected duration. Pain ag7 level reassessed. Patient is alert, oriented x 3, equal unlabored respirations, skin warm/dry/pink. Patient denies pain at this time. Patient states feeling better. Patient states symptoms have improved. 23:54 Reassessment: No changes from previously documented assessment. ag7 06/01 01:00 Reassessment: Patient and/or family updated on plan of care and expected duration. Pain ag7 level reassessed. Patient is alert, oriented x 3, equal unlabored respirations, skin warm/dry/pink. Patient denies pain at this time. Patient states feeling better. 02:00 Reassessment: No changes from previously documented assessment. ag7 03:00 Reassessment: Patient and/or family updated on plan of care and expected duration. Pain ag7 level reassessed. Patient is alert, oriented x 3, equal unlabored respirations, skin warm/dry/pink. Patient denies pain at this time. Patient states feeling better. Patient states symptoms have improved. Vital Signs: 05/31 20:00 BP 150 / 79; Pulse 91; Resp 17; Temp 98.3(O); Pulse Ox 99% on R/A; Weight 57.15 kg; 5 Height 5 ft. 2 in. (157.48 cm); Pain 4/10; 22:41 BP 127 / 82; Pulse 105; Resp 19 S; Pulse Ox 100% on R/A; Pain 0/10; ag7 22:45 BP 140 / 81; Pulse 92; Resp 18 S; Pulse Ox 100% on R/A; Pain 0/10; ag7 23:30 BP 134 / 88; Pulse 85; Resp 16 S; Pulse Ox 99% on R/A; Pain 0/10; ag7 06/01 00:15 BP 112 / 61; Pulse 89; Resp 20 S; Pulse Ox 99% on R/A; Pain 0/10; ag7 01:45 BP 118 / 73; Pulse 78; Resp 16 S; Pulse Ox 100% on R/A; Pain 0/10; ag7 05/31 20:00 Body Mass Index 23.05 (57.15 kg, 157.48 cm) [facility] ED Course: 05/31 19:29 Patient arrived in ED. kz 20:01 Triage completed. 5 20:04 Arm band placed on right wrist. 5 20:10 EKG completed in triage. Results shown to MD. sm5 20:12 Enio Holloway MD is Attending Physician. kdr 21:22 XRAY Chest (1 view) In Process Unspecified. EDMS 21:37 Luzma King, RN is Primary Nurse. 7 22:07 No provider procedures requiring assistance completed. Inserted saline lock: 20 gauge ag7 in right antecubital area, using aseptic technique. Missed attempt(s): 20 gauge in left antecubital area. blood collected and sent to lab. Bleeding controlled, band aid applied, catheter tip intact. 22:08 Patient has correct armband on for positive identification. Bed in low position. Call [facility] light in reach. Adult w/ patient. 06/01 00:47 Diane Perkins MD is Hospitalizing Provider. kdr 12:42 Patient transferred, IV remains in place. ll1 Administered Medications: 05/31 22:34 Drug: XANax (alprazolam) Tablet 0.25 mg Route: PO; 7 23:00 Follow up: Response: No adverse reaction [facility] 04/24 01:05 Drug: NS 0.9% 1000 ml Route: IV; Rate: 100 ml/hr; Site: right antecubital; ag7 02:13 Follow up: IV Status: Completed infusion; IV Intake: 1000ml ag7 01:05 Drug: Potassium Effervescent Tablet 50 mEq Route: PO; ag7 01:30 Follow up: Response: No adverse reaction ag7 Intake: 02:13 IV: 1000ml; Total: 1000ml. ag7 Outcome: 00:49 Decision to Hospitalize by Provider. kdr 12:41 Admitted to Tele accompanied by tech, via wheelchair, room 206, with chart, Report ll1 called to IlusisRobert 12:41 Condition: stable 12:41 Instructed on the need for admit. 13:24 Patient left the ED. Signatures: Dispatcher [employer] EDMS Enio Holloway MD MD [facility] Sultana Coates RN RN ss Elmer Arnold RN RN ll1 Sri Servin RN RN [email or web address] Cielo Dobbs Angela, RN RN ag7
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
[2021-06-01 02:18] LABS: SARS-COV-2 RT PCR NEGATIVE (NEGATIVE)
[2021-06-01] MEDS ORDERED: ACETAMINOPHEN 500 MG TAB PO PRN (03:52)
[2021-06-01] MEDS ORDERED: DIAZEPAM 2 MG TABLET PO PRN (03:52)
[2021-06-01] MEDS: NA CHLORIDE 0.9% 1,000 ML IV SCH ×2 (03:52→10:32)
[2021-06-01] MEDS ORDERED: PROMETHAZINE INJ 25 MG/ML AMP IV PRN (03:52)
[2021-06-01] MEDS ORDERED: HYDRALAZINE HCL 20 MG/ML VIAL IV PRN (03:52)
[2021-06-01 04:05] VITALS: BMI 21.0
[2021-06-01 04:35] LABS: Urine Blood Trace-intact (Negative); Urine Glucose Negative (Negative); Urine Protein Negative (Negative); Urine Specific Gravity <=1.005 (1.005-1.030)
[2021-06-01 04:49] LABS: Urine Appearance Clear (Clear); Urine Bilirubin Negative (Negative); Urine Blood Trace-intact (Negative); Urine Color Yellow (Yellow); Urine Glucose Negative (Negative); Urine Protein Negative (Negative); Urine Urobilinogen 0.2 mg/dL (0.2-1.0)
[2021-06-01 04:52] LABS: Urine Microscopic Reflex ORDER UMIC
[2021-06-01 04:54] LABS: BUN Blood Urea Nitrogen 8 mg/dL (7-18); Bicarbonate 26 mmol/L (21-32); Glucose Level 75 mg/dL (74-106); Magnesium 2.1 mg/dL (1.8-2.4); Phosphorus 3.2 mg/dL (2.5-4.9); Sodium Level 128 mmol/L (136-145)
[2021-06-01 05:07] LABS: Urine Bacteria <20 /HPF (<20); Urine RBC <5 /HPF (NONE SEEN)
[2021-06-01] MEDS ORDERED: ENOXAPARIN 40 MG/0.4 ML SQ ONE (07:25)
[2021-06-01] MEDS ORDERED: PNEUMOCOCCAL VACCINE 0.5 ML IMVAC ONE (08:00)
[2021-06-01] MEDS: ENOXAPARIN 40 MG/0.4 ML SQ SCH (09:00)
--- NOTE | 2021-06-01 15:26 | P.CNS ---
Date of Consult: 06/01/21 Primary Care Provider: Luciana Chief Complaint: Hyponatremia History of Present Illness: Patient is a 71-year-old female with hypertension on Amlodipine, bystolic and losartan, chronic mild hypokalemia on KCL and stage II chronic kidney disease who presented to the ED with complaints of high blood pressure and bilateral leg cramping .In the ED, she was found to have a sodium of 119, potassium 3.3 glucose 121 pt stated she drinks 3-4 liters dailym urine Osmol low 87, NA <20 , Na improved to 128 ROS General : denies fever, chills, WT change weakness, insomnia HEENT: Denies dry, vision changes and headache Resp: denies SOB, cough or wheezes Cardiovascular: : denies chest pain, palpitation GI: denies abdominal pain, diarrhea or constipation : denies dysuria, urgency, foamy urine or blood tinged urine Muscloskeltal: denies muscle aches, joint pain Endo: denies polyuria and and polydipsia ROS General : denies fever, chills, WT change weakness, insomnia HEENT: Denies dry, vision changes and headache Resp: denies SOB, cough or wheezes Cardiovascular: : denies chest pain, palpitation GI: denies abdominal pain, diarrhea or constipation : denies dysuria, urgency, foamy urine or blood tinged urine Muscloskeltal: leg cramps Endo: denies polyuria and and polydipsia Extre: denies pain numbness and swelling Physical exam General: AAOx3, NAD CHEST; CTAB, no wheezes or rales HEART : RRR. Normal S1,2 no murmur or rub Abd: soft, Nt Ext: no edema Skin : No rash A/P Euvolemic hyponatremia due to excessive fluid intake +/- poor oral intake low urine Sodium and Osmol target sodium 125 tonight and 131 by tomorrow mornin not on SSR or HCTZ will repeat sodium level restrict fluid at home to 2liters Corect potassium Chronic hypokalemia replaced HTN BP is borde line now cont to hold medication leg cramps possible due to hypokalemia improved now Allergies No Known Allergies Allergy (Unverified 06/01/21 04:07) Home Medications: Nebivolol HCl [Bystolic] 10 mg PO DAILY 05/16/11 Amlodipine [Norvasc*] 5 mg PO DAILY 11/07/19 Losartan Potassium [Cozaar] 100 mg PO DAILY 11/07/19 Aspirin [Aspirin EC 81 MG] 81 mg PO DAILY #30 tablet. 11/08/19 Pantoprazole [Protonix Tab*] 40 mg PO DAILY #30 tab 11/08/19 Nitroglycerin 0.4 mg SL SEECOM #30 tab.subl 01/05/20 - Past Medical/Surgical History Diabetic: No -: Hypertension -: CKD stage 2 -: GERD - reflux -: Hysterectomy -: Cholecystectomy Psychosocial/ Personal History: Patient is - Family History Father Medical History: Hypertension Mother Notes: Hip fracture- - Social History Smoking Status: Never smoker Alcohol use: No CD- Drugs: No Caffeine use: No Place of Residence: Home Physical Examination Temp Pulse Resp BP Pulse Ox 97.8 F 82 15 103/61 100 06/01/21 12:00 06/01/21 12:43 06/01/21 12:43 06/01/21 12:43 06/01/21 12:43 Laboratory Data (last 24 hrs) 05/31/21 23:36: Sodium 119 L*, Potassium 3.3 L, BUN 9, Creatinine 0.67, Glucose 121 H 05/31/21 22:25: WBC 7.5, Hgb 13.3, Hct 36.6, Plt Count 230
[2021-06-01 16:17] LABS: Potassium 3.9 mmol/L (3.5-5.1)
[2021-06-01] MEDS ORDERED: D5W 500 ML IV SCH ×2 (17:00)
[2021-06-01] MEDS ORDERED: D5W 1,000 ML IV SCH ×2 (21:39→23:00)
[2021-06-01] MEDS: D5W 1,000 ML IV SCH ×2 (22:05→23:11)
[2021-06-01] MEDS ORDERED: D5 0.9 NS 1,000 ML IV SCH (23:00)
[2021-06-02 06:25] LABS: Magnesium 2.4 mg/dL (1.8-2.4); Phosphorus 3.9 mg/dL (2.5-4.9); Potassium 3.9 mmol/L (3.5-5.1)
[2021-06-02] MEDS: ENOXAPARIN 40 MG/0.4 ML SQ SCH (08:31)
[2021-06-02] MEDS ORDERED: POTASSIUM CL SA 10 MEQ TAB PO ONE (09:00)
[2021-06-02] MEDS: D5W 1,000 ML IV SCH (12:13)
[2021-06-02 14:11] LABS: Potassium 4.5 mmol/L (3.5-5.1)
--- NOTE | 2021-06-02 14:13 | P.PN ---
Subjective Date of Service: 06/02/21 Primary Care Provider: Luciana Chief Complaint: Hyponatremia Subjective: No new changes Physical Examination - Vital Signs Temperature: 97.6 F Blood Pressure: 134/73 Pulse: 78 Respirations: 16 Pulse Ox (%): 100 Assessment And Plan Physician Review: Patient Assessed, Agree with Above Assessment and Plan Physician Review Additional Text: - Physical Exam General: Alert, In no apparent distress, Oriented x3 HEENT: Atraumatic, PERRLA, Mucous membr. moist/pink, EOMI, Sclerae nonicteric Neck: Supple, 2+ carotid pulse no bruit, No LAD, Without JVD or thyroid abnormality Respiratory: Clear to auscultation bilaterally, Normal air movement Cardiovascular: No edema, Regular rate/rhythm, Normal S1 S2 Gastrointestinal: Normal bowel sounds, No tenderness Musculoskeletal: No tenderness Integumentary: No rashes Neurological: Normal speech, Normal strength at 5/5 x4 extr, Normal tone, Normal affect Assessment and Plan - Problems (Diagnosis) (1) Hyponatremia Current Visit: Yes Status: Acute (2) Hypokalemia Current Visit: Yes Status: Acute (3) Chronic kidney disease Current Visit: Yes Status: Chronic Qualifiers: Chronic kidney disease stage: stage 2 (mild) Qualified Code(s): N18.2 - Chronic kidney disease, stage 2 (mild) (4) Anxiety Current Visit: Yes Status: Chronic (5) Hypertension Current Visit: Yes Status: Chronic Qualifiers: Hypertension type: primary hypertension Qualified Code(s): I10 - Essential (primary) hypertension - Plan -Serum sodium improving to 132 We will switch to half NS to reduce rate of rapid increase Increase fluid intake advised for now But will need to discharge home with fluid restriction Blood pressure controlled, continue to monitor Prior QT prolongation noted on EKG, continue to monitor Discharge Plan: Home Plan to discharge in: 24 Hours
--- NOTE | 2021-06-02 22:05 | PN ---
Date of Progress Note: 06/02/2021 Chief Complaint: Chronic kidney disease stage 2 due to benign nephrosclerosis. Subjective: The patient was admitted to the hospital for generalized weakness and she was found to h ave elevated blood pressure. She was found to have severe hyponatremia. Sodium level was 119, potas sium 3.3. Previously, she presented to the office for a followup, and she was found to have borderli ne hypokalemia. She was started on potassium replacement and she was to have a workup for hyperaldos teronism. The patient was instructed about adequate fluid intake to prevent and avoid excessive flui d intake. She apparently was ranging up to 3 L daily and urine osmolality was 87 on arrival. Sodium was less than 20. Sodium level on arrival to the hospital was 119, subsequently it did improve to 1 28. Currently, the patient is on D5W to adequately control sodium level and to prevent overly rapid hyponatremia correction. Review of Systems: The patient denies PND or orthopnea. Physical Examination: Lungs: Clear to auscultation bilaterally. Heart: S1 and S2. Abdomen: Soft, benign. Extremities: No edema. Impression And Plan: 1.Hyponatremia due to excessive fluid intake and poor oral intake. The patient was advised to incre ase potassium foods, and to avoid excessive water intake. 2.Sodium level was over the target and the patient was started on D5W. Monitor electrolytes, and so dium level at this time is stabilizing and plateauing. Continue to adjust fluid. 3.Hypertension. Continue angiotensin receptor kathy. 4.Due to electrolyte abnormalities, continue to replace potassium and check magnesium level. EB/MODL Voice ID: [id number] Report ID: [id number]
[2021-06-02 23:02] LABS: CKMB Creatine Kinase MB 1.8 ng/mL (1.0-3.6); Phosphorus 3.9 mg/dL (2.5-4.9); Potassium 3.7 mmol/L (3.5-5.1)
[2021-06-03] MEDS: D5W 1,000 ML IV SCH (00:25)
[2021-06-03] MEDS ORDERED: POTASSIUM CL SA 10 MEQ TAB PO ONE ×2 (01:28→11:25)
[2021-06-03 04:49] VITALS: O2SAT 98
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
[2021-06-03 10:35] LABS: Potassium 3.8 mmol/L (3.5-5.1)
[2021-06-03] MEDS: ENOXAPARIN 40 MG/0.4 ML SQ SCH (11:21)
[2021-06-03 13:19] VITALS: BP 142/74; TEMP 97.7
--- NOTE | 2021-06-03 19:12 | PN ---
Date of Progress Note: 06/03/2021 Subjective: The patient was admitted to the hospital with generalized weakness, hyponatremia, and hy pokalemia. Her hyponatremia was secondary to depletional. It was corrected. Today, the patient is feeling well. Physical Examination: Vital Signs: Blood pressure 142/74, pulse of 71, afebrile. Chest: Clear to auscultation. Heart: S1, S2. Regular. Abdomen: Soft, nontender. Extremities: No edema. Neurological: Alert, oriented x3. Nonfocal. Laboratory Data: Sodium 133, potassium 3.8, bicarb 32, BUN 10, creatinine 0.8. WBC 7.5, H and H 13. 3/36.6. Current Medications: The patient on include, 1.Promethazine. 2.Tylenol. 3.Diazepam. 4.D5. 5.KCl. Assessment And Plan: 1.Hyponatremia secondary to depletional, recovered, resolved, corrected appropriately. Discontinue IV fluids. The patient cleared from the renal standpoint for discharge planning. Please avoid any d iuresis for the time being. 2.Hypertension, controlled optimal. Continue current medication. 3.Hypokalemia, status post supplement, resolved. CONRADO/IVORY Voice ID: [id number] Report ID: [id number]
== END 2021-06-03 15:15 | disposition home or self-care (01) | DRG 641 ==
LOC: ER 19:25 → ERHOLD 06-01 01:18 → 2ND 06-01 12:43
PROVIDERS: ADMIT Hospitalist; ATTEND Internal Medicine
DX: E87.1 Hypo-osmolality and hyponatremia (principal); E87.6 Hypokalemia; I16.0 Hypertensive urgency; I12.9 Hypertensive chronic kidney disease with stage 1 through stage 4 chronic kidney disease, or unspecified chronic kidney disease; N18.2 Chronic kidney disease, stage 2 (mild); F41.9 Anxiety disorder, unspecified; R20.0 Anesthesia of skin; R25.2 Cramp and spasm; K21.9 Gastro-esophageal reflux disease without esophagitis; Z20.822 Contact with and (suspected) exposure to COVID-19; Z90.49 Acquired absence of other specified parts of digestive tract; Z90.710 Acquired absence of both cervix and uterus; Z82.49 Family history of ischemic heart disease and other diseases of the circulatory system
CPT/HCPCS: 0240U; 36415; 71045; 80048; 81003; 81015; 82088; 82550; 82553; 82570; 83735; 83930; 83935; 84100; 84244; 84300; 84439; 84443; 84484; 85025; 93005; 96360; 99285; J1650; J7030

== ENCOUNTER 2021-06-15 20:25 | Emergency (ER) | payer OTHER ==
[2021-06-16 01:28] LABS: Absolute Lymphocytes (CBC) 1.6 K/uL (0.7-4.9); Hematocrit 39.9 % (36.0-45.0); Lymphocytes % 28.2 % (15.3-44.8); RBC Red Blood Cell Count 4.58 M/uL (3.86-4.86)
[2021-06-16 01:30] LABS: Protime INR 1.03
[2021-06-16 01:47] LABS: Albumin 4.3 g/dL (3.4-5.0); Bilirubin Direct 0.2 mg/dL (0-0.2); Bilirubin Total 0.5 mg/dL (0.2-1.0); Magnesium 2.3 mg/dL (1.8-2.4); Phosphorus 3.9 mg/dL (2.5-4.9); Potassium 3.4 mmol/L (3.5-5.1); Protein, Total 8.2 g/dL (6.4-8.2); Troponin High Sensitivity 5.5 pg/mL (<58.9)
[2021-06-16] MEDS ORDERED: POTASSIUM CL SA 10 MEQ TAB PO ONE (03:10)
[2021-06-16 03:34] LABS: Urine Blood Negative (Negative); Urine Glucose Negative (Negative); Urine Protein Negative (Negative); Urine Specific Gravity 1.015 (1.005-1.030)
--- NOTE | 2021-06-16 05:47 | ER ---
Nurse's Notes [facility] Name: Risa Estrada Age: 71 yrs Sex: Female : 1950 Arrival Date: 06/15/2021 Time: 20:29 Bed 20 Private MD: Diagnosis: Peripheral Neuropathy Presentation: 06/15 21:03 Chief complaint: Patient states: she was here approx a week ago and has been having bb weakness and pain and burning in her legs since then her BP at home was elevated. Coronavirus screen: At this time, the client does not indicate any symptoms associated with coronavirus-19. Ebola Screen: No symptoms or risks identified at this time. Initial Sepsis Screen: Does the patient meet any 2 criteria? No. Patient's initial sepsis screen is negative. Does the patient have a suspected source of infection? No. Patient's initial sepsis screen is negative. Risk Assessment: Do you want to hurt yourself or someone else? Patient reports no desire to harm self or others. Onset of symptoms is unknown. 21:03 Method Of Arrival: Ambulatory bb 21:03 Acuity: ISIS 3 bb Triage Assessment: 21:06 General: Appears in no apparent distress. uncomfortable, Behavior is calm, cooperative. bb Pain: Complains of pain in right leg and left leg. Neuro: Level of Consciousness is awake, alert, obeys commands, Oriented to person, place, time, situation. Cardiovascular: Capillary refill < 3 seconds Patient's skin is warm and dry. Respiratory: Respiratory effort is even, unlabored, Respiratory pattern is regular. GI: Abdomen is non-distended. Derm: Skin is pink, warm \T\ dry. Musculoskeletal: Circulation, motion, and sensation intact. Historical: - Allergies: 21:05 Lipitor; bb - Home Meds: 21:05 amlodipine 10 mg tab 1 tab once daily [Active]; Bystolic 10 mg Oral tab 1 tab once bb daily [Active]; losartan 100 mg Oral tab 1 tab once daily [Active]; - PMHx: 21:05 chronic kidney disease; Gastric Reflux; Hypertension; palpitations; bb - Immunization history:: Moderna x 2. - Social history:: Smoking status: Patient denies any tobacco usage or history of. Screenin/09 00:19 Abuse screen: Denies threats or abuse. Denies injuries from another. Nutritional kd3 screening: No deficits noted. Tuberculosis screening: No symptoms or risk factors identified. Fall Risk None identified. Assessment: 00:34 General: Appears uncomfortable, Behavior is anxious. Pain: Complains of pain in left kd3 leg and right leg. 01:00 Reassessment: Patient and/or family updated on plan of care and expected duration. Pain kd3 level reassessed. Patient is alert, oriented x 3, equal unlabored respirations, skin warm/dry/pink. 03:00 Reassessment: Patient and/or family updated on plan of care and expected duration. Pain kd3 level reassessed. Patient is alert, oriented x 3, equal unlabored respirations, skin warm/dry/pink. Neuro: Level of Consciousness is awake, alert, obeys commands, Oriented to person, place, time, situation. Cardiovascular: Patient's skin is warm and dry. Respiratory: Airway is patent Trachea midline Respiratory effort is even, unlabored, Respiratory pattern is regular, symmetrical. 04:20 Reassessment: Patient and/or family updated on plan of care and expected duration. Pain kd3 level reassessed. Patient is alert, oriented x 3, equal unlabored respirations, skin warm/dry/pink. anxiety improved. pt sleeping in bed. 05:15 Reassessment: No changes from previously documented assessment. Patient and/or family kd3 updated on plan of care and expected duration. Pain level reassessed. Patient is alert, oriented x 3, equal unlabored respirations, skin warm/dry/pink. 06:11 Reassessment: Patient and/or family updated on plan of care and expected duration. Pain kd3 level reassessed. Patient is alert, oriented x 3, equal unlabored respirations, skin warm/dry/pink. Patient states feeling better. Vital Signs: 06/15 21:03 BP 149 / 83; Pulse 85; Resp 16 S; Temp 98.3(O); Pulse Ox 97% on R/A; Weight 56.7 kg bb (R); Height 5 ft. 2 in. (157.48 cm) (R); 06/16 00:35 BP 170 / 80; Pulse 72; Resp 19; Pulse Ox 99% on R/A; kd3 01:27 BP 148 / 82; Pulse 89; Resp 16; Pulse Ox 100% on R/A; kd3 02:38 BP 127 / 73; Pulse 65; Resp 19; Pulse Ox 98% on R/A; kd3 03:09 BP 119 / 71; Pulse 92; Resp 19; Pulse Ox 99% on R/A; kd3 04:05 Pulse 74; Resp 19; Pulse Ox 97% ; kd3 05:00 BP 118 / 71; Pulse 66; Resp 17; Pulse Ox 99% on R/A; kd3 05:37 Pulse 78; Resp 19; Pulse Ox 100% on R/A; kd3 05/08 21:03 Body Mass Index 22.86 (56.70 kg, 157.48 cm) ED Course: 06/15 20:29 Patient arrived in ED. jj6 21:05 Triage completed. bb 21:06 Arm band placed on Patient placed in waiting room, Patient notified of wait time. bb 06/16 00:12 Megha Dacosta, RN is Primary Nurse. kd3 00:19 Patient has correct armband on for positive identification. kd3 00:43 Crescencio Roberto MD is Attending Physician. [facility] 01:21 Inserted saline lock: 20 gauge in right antecubital area, using aseptic technique. kd3 Blood collected. 01:45 XRAY Chest (1 view) In Process Unspecified. EDMS 06:12 No provider procedures requiring assistance completed. IV discontinued, intact, kd3 bleeding controlled, No redness/swelling at site. Pressure dressing applied. Administered Medications: 03:08 Drug: Potassium Chloride 20 mEq Route: PO; kd3 06:18 Follow up: Response: No adverse reaction kd3 Outcome: 05:46 Discharge ordered by . [facility] 06:12 Discharged to home ambulatory. kd3 06:12 Condition: stable 06:12 Discharge instructions given to patient, Instructed on discharge instructions, follow up and referral plans. Demonstrated understanding of instructions, follow-up care. 06:19 Patient left the ED. kd3 Signatures: Dispatcher [employer] EDMS Indiana Fuentes RN RN Crescencio Roberto MD MD [facility] Cheryl Kyle j6 Megha Dacosta RN RN kd3
--- NOTE | 2021-06-16 05:47 | EDPHYS ---
Physician Documentation [facility] Name: Risa sEtrada Age: 71 yrs Sex: Female : 1950 Arrival Date: 06/15/2021 Time: 20:29 Bed 20 Private MD: ED Physician Crescencio Roberto HPI: 06/16 01:30 This 71 yrs old Female presents to ER via Ambulatory with complaints of General 7 Weakness, Headache, Pain All Over, NUMBNESS IN LOWER EXT. 01:30 The patient presents with pain, that is chronic. The complaints affect the left leg and mh7 right leg. Context: The problem was sustained at an unknown site, resulted from an unknown cause, the patient can fully bear weight, the patient is able to ambulate, without difficulty, Problem is a result from a previous injury: No. Onset: The symptoms/episode began/occurred 1 week(s) ago. Modifying factors: The symptoms are alleviated by nothing. the symptoms are aggravated by nothing. Associated signs and symptoms: Pertinent positives: burning sensation to legs, Pertinent negatives calf tenderness, fever, nausea, numbness, rash, swelling, tingling, vomiting, warmth, weakness. Treatment prior to arrival includes: no previous treatment. 01:30 Severity of symptoms: At their worst the symptoms were moderate, 5 day(s) ago, in the [facility] emergency department the symptoms have improved, moderately. The patient has experienced similar episodes in the past, a few times. States that she has had intermittent burning sensation to both legs. She states she was told it was because of her potassium being low. Denies any weakness, headache, or pain.. Historical: - Allergies: 06/15 21:05 Lipitor; bb - Home Meds: 21:05 amlodipine 10 mg tab 1 tab once daily [Active]; Bystolic 10 mg Oral tab 1 tab once bb daily [Active]; losartan 100 mg Oral tab 1 tab once daily [Active]; - PMHx: 21:05 chronic kidney disease; Gastric Reflux; Hypertension; palpitations; bb - Immunization history:: Moderna x 2. - Social history:: Smoking status: Patient denies any tobacco usage or history of. ROS: 06/16 01:30 Constitutional: Negative for fever, chills, and weight loss, Eyes: Negative for injury, mh7 pain, redness, and discharge, ENT: Negative for injury, pain, and discharge, Neck: Negative for injury, pain, and swelling, Cardiovascular: Negative for chest pain, palpitations, and edema, Respiratory: Negative for shortness of breath, cough, wheezing, and pleuritic chest pain, Abdomen/GI: Negative for abdominal pain, nausea, vomiting, diarrhea, and constipation, Back: Negative for injury and pain, : Negative for injury, bleeding, discharge, and swelling, MS/Extremity: Negative for injury and deformity, Skin: Negative for injury, rash, and discoloration, Neuro: Negative for headache, weakness, numbness, tingling, and seizure, Psych: Negative for depression, anxiety, suicide ideation, homicidal ideation, and hallucinations, Allergy/Immunology: Negative for hives, rash, and allergies, Endocrine: Negative for neck swelling, polydipsia, polyuria, polyphagia, and marked weight changes, Hematologic/Lymphatic: Negative for swollen nodes, abnormal bleeding, and unusual bruising. Exam: 01:30 Constitutional: This is a well developed, well nourished patient who is awake, alert, mh7 and in no acute distress. Head/Face: Normocephalic, atraumatic. Eyes: Pupils equal round and reactive to light, extra-ocular motions intact. Lids and lashes normal. Conjunctiva and sclera are non-icteric and not injected. Cornea within normal limits. Periorbital areas with no swelling, redness, or edema. Neck: Trachea midline, no thyromegaly or masses palpated, and no cervical lymphadenopathy. Supple, full range of motion without nuchal rigidity, or vertebral point tenderness. No Meningismus. Chest/axilla: Normal chest wall appearance and motion. Nontender with no deformity. No lesions are appreciated. Cardiovascular: Regular rate and rhythm with a normal S1 and S2. No gallops, murmurs, or rubs. Normal PMI, no JVD. No pulse deficits. Respiratory: Lungs have equal breath sounds bilaterally, clear to auscultation and percussion. No rales, rhonchi or wheezes noted. No increased work of breathing, no retractions or nasal flaring. Abdomen/GI: Soft, non-tender, with normal bowel sounds. No distension or tympany. No guarding or rebound. No evidence of tenderness throughout. Back: No spinal tenderness. No costovertebral tenderness. Full range of motion. Skin: Warm, dry with normal turgor. Normal color with no rashes, no lesions, and no evidence of cellulitis. MS/ Extremity: Pulses equal, no cyanosis. Neurovascular intact. Full, normal range of motion. Neuro: Awake and alert, GCS 15, oriented to person, place, time, and situation. Cranial nerves II-XII grossly intact. Motor strength 5/5 in all extremities. Sensory grossly intact. Cerebellar exam normal. Normal gait. Psych: Awake, alert, with orientation to person, place and time. Behavior, mood, and affect are within normal limits. Vital Signs: 06/15 21:03 BP 149 / 83; Pulse 85; Resp 16 S; Temp 98.3(O); Pulse Ox 97% on R/A; Weight 56.7 kg bb (R); Height 5 ft. 2 in. (157.48 cm) (R); 06/16 00:35 BP 170 / 80; Pulse 72; Resp 19; Pulse Ox 99% on R/A; kd3 01:27 BP 148 / 82; Pulse 89; Resp 16; Pulse Ox 100% on R/A; kd3 02:38 BP 127 / 73; Pulse 65; Resp 19; Pulse Ox 98% on R/A; kd3 03:09 BP 119 / 71; Pulse 92; Resp 19; Pulse Ox 99% on R/A; kd3 04:05 Pulse 74; Resp 19; Pulse Ox 97% ; kd3 05:00 BP 118 / 71; Pulse 66; Resp 17; Pulse Ox 99% on R/A; kd3 05:37 Pulse 78; Resp 19; Pulse Ox 100% on R/A; kd3 /08 21:03 Body Mass Index 22.86 (56.70 kg, 157.48 cm) MDM: 05:39 Differential diagnosis: tendonitis, musculoskeletal pain, peripheral neuropathy. Data [facility] reviewed: vital signs, nurses notes, lab test result(s), cardiac enzymes, CBC, electrolytes, EKG, radiologic studies, plain films. Data interpreted: Pulse oximetry: on room air is 100 %. Interpretation: normal. Counseling: I had a detailed discussion with the patient and/or guardian regarding: the historical points, exam findings, and any diagnostic results supporting the discharge/admit diagnosis, lab results, radiology results, the need for outpatient follow up, to return to the emergency department if symptoms worsen or persist or if there are any questions or concerns that arise at home. Response to treatment: the patient's symptoms have resolved after treatment, the patient's blood pressure is in an acceptable range, mental status has returned to baseline, the patient no longer shows bradycardia, the patient is not short of breath, the patient is not tachycardic, the patient's pain is gone, the patient's temperature has normalized, patient is well hydrated. 05:46 Patient medically screened. 06/16 00:53 Order name: Basic Metabolic Panel; Complete Time: 03:34 [facility] 06/16 00:53 Order name: CBC with Diff; Complete Time: 01:44 [facility] 06/16 00:53 Order name: LFT's; Complete Time: 03:34 [facility] 06/16 00:53 Order name: Magnesium; Complete Time: 03:34 [facility] 06/16 00:53 Order name: NT PRO-BNP; Complete Time: 03:34 [facility] 06/16 00:53 Order name: PT-INR; Complete Time: :44 06/16 00:53 Order name: Troponin HS; Complete Time: 03:34 06/16 00:53 Order name: XRAY Chest (1 view) [facility] 06/16 01:34 Order name: Phosphorus; Complete Time: 03:34 [facility] 06/16 03:05 Order name: Creatine Phosphokinase; Complete Time: 03:34 [facility] 06/16 03:34 Order name: Urine Dipstick-Ancillary; Complete Time: 04:58 [facility] 06/16 00:53 Order name: EKG; Complete Time: 00:54 06/16 00:53 Order name: Cardiac monitoring; Complete Time: 01:41 06/16 00:53 Order name: EKG - Nurse/Tech; Complete Time: :21 06/16 00:53 Order name: IV Saline Lock; Complete Time: :21 06/16 00:53 Order name: Labs collected and sent; Complete Time: 01:21 [facility] 06/16 00:53 Order name: O2 Per Protocol; Complete Time: 01:21 06/16 00:53 Order name: O2 Sat Monitoring; Complete Time: : 06/16 00:53 Order name: Urine Dipstick-Ancillary (obtain specimen); Complete Time: 03:24 [facility] Administered Medications: 03:08 Drug: Potassium Chloride 20 mEq Route: PO; kd3 06:18 Follow up: Response: No adverse reaction kd3 Disposition Summary: 06/16/21 05:46 Discharge Ordered Location: Home [facility] Problem: an ongoing problem [facility] Symptoms: have improved [facility] Condition: Stable [facility] Diagnosis - Peripheral Neuropathy [facility] Followup: [facility] - With: Private Physician - When: 1 - 2 days - Reason: Worsening of condition, Recheck today's complaints, Continuance of care, Re-evaluation by your physician Discharge Instructions: - Discharge Summary Sheet [facility] - Peripheral Neuropathy [facility] Forms: - Medication Reconciliation Form [facility] - Thank You Letter [facility] - Antibiotic Education [facility] - Prescription Opioid Use [facility] Signatures: Dispatcher [employer] Indiana Wylie RN RN bb Crescencio Roberto MD MD [facility] Megha Dacosta RN RN kd3 Lolis España PA PA sb3 Corrections: (The following items were deleted from the chart) 02:57 02:53 This 71 yrs old Female presents to ER via Ambulatory with complaints of 7 General Weakness, Headache, Pain All Over, NUMBNESS IN LOWER EXT. [facility] 03:05 02:53 CREATINE PHOSPHOKINASE+C.LAB.BRZ ordered. EDMS EDMS
[2021-06-16 07:06] VITALS: TEMP 98.3
[2021-06-16 07:13] VITALS: BP 118/71
[2021-06-16 07:15] VITALS: O2SAT 100
--- NOTE | 2021-06-16 08:56 | EKG ---
Test Date: 2021-06-16 Test Time: 00:29:55 Manager Care: ELIZABETH MEASUREMENT RESULTS: Intervals: Rate: 70 OR: 190 QRSD: 88 QT: 422 QTc: 455 [place]: P: 46 OR: 190 QRS: 76 T: 60 INTERPRETIVE STATEMENTS: Normal sinus rhythm Normal ECG Compared to ECG 05/31/2021 20:05:32 ST (T wave) deviation no longer present Prolonged QT interval no longer present Electronically Signed On 06-16-21 08:55:07 CDT by Tello Santos
--- NOTE | 2021-06-16 13:24 | RAD REPORT ---
EXAM DESCRIPTION: RAD - Chest Single View - 06/16/2021 1:43 am CLINICAL HISTORY: The patient is 71 years old and is Female; CONGESTION TECHNIQUE: Frontal view of the chest. COMPARISON: No relevant prior studies available. FINDINGS: Lungs: Prominent interstitial and vascular markings. No consolidation. Pleural space: Unremarkable. No pneumothorax. Heart: Unremarkable. Mediastinum: Unremarkable. Bones/joints: Unremarkable. IMPRESSION: Prominent interstitial and vascular markings. No consolidation. Electronically signed by: Michael Weinberg MD 06/16/2021 2:05 AM CDT Due to temporary technical issues with the PACS/Fluency reporting system, reports are being signed by the in house radiologist without review as a courtesy to ensure prompt reporting. The interpreting r adiologist is fully responsible for the content of the report.
== END 2021-06-16 06:19 | disposition home or self-care (01) ==
LOC: ER 20:25
DX: G62.9 Polyneuropathy, unspecified (principal); I12.9 Hypertensive chronic kidney disease with stage 1 through stage 4 chronic kidney disease, or unspecified chronic kidney disease; N18.9 Chronic kidney disease, unspecified; Z88.8 Allergy status to other drugs, medicaments and biological substances
CPT/HCPCS: 36415; 71045; 80048; 80076; 81003; 82550; 83735; 83880; 84100; 84484; 85025; 85610; 93005; 99284

== ENCOUNTER 2022-06-04 09:24 | Emergency (ER) | payer OTHER ==
--- NOTE | 2022-06-04 09:42 | ER ---
Nurse's Notes [facility] Name: Risa Estrada Age: 72 yrs Sex: Female : 1950 Arrival Date: 06/04/2022 Time: 09:24 Bed IW1 Private MD: Diagnosis: Unspecified contact dermatitis, unspecified cause Presentation: 06/04 09:33 Chief complaint: Patient states: Itching for 2 months, getting slowly worse. ll1 Coronavirus screen: Client denies travel out of the [place] in the last 14 days. At this time, the client does not indicate any symptoms associated with coronavirus-19. Ebola Screen: Patient denies travel to an Ebola-affected area in the 21 days before illness onset. Onset: The symptoms/episode began/occurred 2 month(s) ago. Anaphylaxis evaluation, no signs or symptoms of anaphylaxis were noted. Initial Sepsis Screen: Does the patient meet any 2 criteria? No. Patient's initial sepsis screen is negative. Does the patient have a suspected source of infection? Yes: Other: rash with itching. Risk Assessment: Do you want to hurt yourself or someone else? Patient reports no desire to harm self or others. Onset of symptoms was April 06, 2022. 09:33 Method Of Arrival: Ambulatory ll1 09:33 Acuity: ISIS 4 ll1 Triage Assessment: 09:35 General: Appears in no apparent distress. Behavior is calm, cooperative, appropriate ll1 for age. Pain: Denies pain. Derm: Reports rash with itching for 2 months. Historical: - Allergies: 09:35 Lipitor; ll1 - PMHx: 09:35 chronic kidney disease; Gastric Reflux; Hypertension; palpitations; ll1 - Immunization history:: Adult Immunizations up to date. - Social history:: Smoking status: Patient denies any tobacco usage or history of. Screenin:46 [facility] ED Fall Risk Assessment (Adult) Score/Fall Risk Level 0 - 2 = Low Risk ll1 Oriented to surroundings, Maintained a safe environment, Educated pt \T\ family on fall prevention, incl call for assistance when getting out of bed, Hourly rounding (assess needs \T\ fall precautionary measures) done. Abuse screen: Denies threats or abuse. Nutritional screening: No deficits noted. Tuberculosis screening: No symptoms or risk factors identified. Assessment: 09:41 Reassessment: No changes from previously documented assessment. Patient and/or family ll1 updated on plan of care and expected duration. Pain level reassessed. Patient is alert, oriented x 3, equal unlabored respirations, skin warm/dry/pink. 09:46 Respiratory: Airway is patent Respiratory effort is even, unlabored, Breath sounds are ll1 clear bilaterally. Vital Signs: 09:36 BP 161 / 88; Pulse 98; Resp 17; Temp 98.4; Pulse Ox 100% ; Weight 61.23 kg; Height 5 ll1 ft. 2 in. ; Pain 4/10; 09:36 Body Mass Index 24.69 (61.23 kg, 157.48 cm) ll1 09:36 Pain Scale: Adult ll1 ED Course: :28 Patient arrived in ED. mr 09:29 [facility] kb 09:29 Varun Elam DO is Attending Physician. kb 09:35 Triage completed. ll1 09:35 Arm band placed on. ll1 09:45 Patient has correct armband on for positive identification. Bed in low position. Call ll1 light in reach. Cardiac monitoring not applicable on this patient. 09:46 No provider procedures requiring assistance completed. Patient did not have IV access ll1 during this emergency room visit. Administered Medications: 09:41 Drug: predniSONE PO 40 mg Route: PO; ll1 11:07 Follow up: Response: No adverse reaction ll1 09:41 Drug: Famotidine PO 20 mg Route: PO; ll1 11:07 Follow up: Response: No adverse reaction ll1 Medication: 11:08 VIS not applicable for this client. ll1 Outcome: :41 Discharge ordered by . kb 09:46 Patient left the ED. ll1 09:46 Discharged to home ambulatory. ll1 09:46 Condition: stable 09:46 Discharge instructions given to patient, Instructed on discharge instructions, follow up and referral plans. medication usage, Demonstrated understanding of instructions, follow-up care, medications, Prescriptions given X 2. Signatures: Elina Acosta FNP-C FNP-Yari Connolly mr ArnoldElmer, RN RN ll1
[2022-06-04] MEDS ORDERED: predniSONE 20 MG TAB ONE (09:44)
[2022-06-04] MEDS ORDERED: FAMOTIDINE 20 MG TAB ONE (09:44)
--- NOTE | 2022-06-04 09:47 | EDPHYS ---
Physician Documentation [facility] Name: Risa Estrada Age: 72 yrs Sex: Female : 1950 Arrival Date: 06/04/2022 Time: 09:24 Bed IW1 Private MD: ED Physician Varun Elam HPI: 06/04 09:50 This 72 yrs old Female presents to ER via Ambulatory with complaints of Itching. kb 09:50 The patient's rash thought to be caused by an unknown cause. The rash is located on the kb back. The rash can be described as papular. Onset: The symptoms/episode began/occurred 2 month(s) ago. Associated signs and symptoms: Pertinent positives: itching. Severity of symptoms: At their worst the symptoms were moderate in the emergency department the symptoms are unchanged. Treatment given at home: none. The patient has not experienced similar symptoms in the past. The patient has not recently seen a physician. Pt reports rash and itching to back for 2 months. States she normally gets allergies in April and has itching to eyes and face, but this year it also occurred on back and hasn't gotten any better. Reports she came to the hospital for outpatient labs today so she stopped at the ED while here. . Historical: - Allergies: 09:35 Lipitor; ll1 - PMHx: 09:35 chronic kidney disease; Gastric Reflux; Hypertension; palpitations; ll1 - Immunization history:: Adult Immunizations up to date. - Social history:: Smoking status: Patient denies any tobacco usage or history of. ROS: 09:43 Constitutional: Negative for fever, chills, and weight loss. kb 09:43 Skin: Positive for rash, of the back. 09:43 All other systems are negative. Exam: 09:49 Constitutional: This is a well developed, well nourished patient who is awake, alert, kb and in no acute distress. Head/Face: Normocephalic, atraumatic. ENT: Moist Mucous membranes Cardiovascular: Regular rate and rhythm with a normal S1 and S2. No gallops, murmurs, or rubs. No pulse deficits. Respiratory: Respirations even and unlabored. No increased work of breathing. Talking in full sentences Abdomen/GI: Soft, non-tender. No distention MS/ Extremity: Pulses equal, no cyanosis. Neurovascular intact. Full, normal range of motion. Neuro: Awake and alert, GCS 15, oriented to person, place, time, and situation. Moves all extremities. Normal gait. 09:49 Skin: rash a moderate rash is noted, consistent with contact dermatitis, on the back. Vital Signs: 09:36 BP 161 / 88; Pulse 98; Resp 17; Temp 98.4; Pulse Ox 100% ; Weight 61.23 kg; Height 5 ll1 ft. 2 in. ; Pain 4/10; 09:36 Body Mass Index 24.69 (61.23 kg, 157.48 cm) ll1 09:36 Pain Scale: Adult ll1 MDM: 09:30 Patient medically screened. kb 09:43 Differential diagnosis: urticaria, contact dermatitis, scabies. Data reviewed: vital kb signs, nurses notes. Counseling: I had a detailed discussion with the patient and/or guardian regarding: the historical points, exam findings, and any diagnostic results supporting the discharge/admit diagnosis, the need for outpatient follow up, a child care centre director, a family practitioner, to return to the emergency department if symptoms worsen or persist or if there are any questions or concerns that arise at home. Administered Medications: 09:41 Drug: predniSONE PO 40 mg Route: PO; ll1 11:07 Follow up: Response: No adverse reaction ll1 09:41 Drug: Famotidine PO 20 mg Route: PO; ll1 11:07 Follow up: Response: No adverse reaction ll1 Disposition: 18:58 Co-signature as Attending Physician, Varun KELLY was immediately available on-site ms3 in the Emergency Department for consultation in the care of the patient. Disposition Summary: 06/04/22 09:41 Discharge Ordered Location: Home kb Condition: Stable kb Diagnosis - Unspecified contact dermatitis, unspecified cause kb Followup: kb - With: Emergency Department - When: As needed - Reason: Worsening of condition Followup: kb - With: Private Physician - When: 2 - 3 days - Reason: Recheck today's complaints, Continuance of care, Re-evaluation by your physician Discharge Instructions: - Discharge Summary Sheet kb - Contact Dermatitis kb - Rash, Adult, Omkh-al-Qebq kb Forms: - Medication Reconciliation Form kb - Thank You Letter kb - Antibiotic Education kb - Prescription Opioid Use kb Prescriptions: - Pepcid 20 mg Oral Tablet - take 1 tablet by ORAL route every 12 hours for 5 days; 10 tablet; Refills: 0, kb Product Selection Permitted - Prednisone 20 mg Oral Tablet - take 1 tablet by ORAL route once daily for 5 days; 5 tablet; Refills: 0, kb Product Selection Permitted Signatures: Elina Acosta FNP-C FNP-Ckb Lewis, Lynsay RN RN ll1 Varun Elam DO DO ms3
[2022-06-04 09:56] VITALS: BP 161/88; TEMP 98.4; O2SAT 100
== END 2022-06-04 09:46 | disposition home or self-care (01) ==
LOC: ER 09:24
DX: L25.9 Unspecified contact dermatitis, unspecified cause (principal); Z88.8 Allergy status to other drugs, medicaments and biological substances
CPT/HCPCS: J7512

== ENCOUNTER 2022-08-04 13:59 | Emergency (ER) | payer OTHER ==
[2022-08-04 15:03] LABS: SARS-CoV-2 Antigen Rapid Res Negative (Negative)
--- NOTE | 2022-08-04 15:41 | RAD REPORT ---
EXAM DESCRIPTION: RADChest Single View08/04/2022 3:10 pm CLINICAL HISTORY: COUGH COMPARISON: Chest Single View dated 06/16/2021; Chest Single View dated 05/31/2021; Chest Single View d ated 01/04/2020; Chest Single View dated 11/07/2019 TECHNIQUE: Portable AP view of the chest. FINDINGS: The lungs are clear. No pneumothorax or effusion. The cardiomediastinal contours are unre markable. IMPRESSION: No acute cardiopulmonary process.
--- NOTE | 2022-08-04 17:50 | EDPHYS ---
Physician Documentation [facility] Name: Risa Estrada Age: 72 yrs Sex: Female : 1950 Arrival Date: 08/04/2022 Time: 13:59 Bed DIS4 Private MD: Maikol Chowdhury H ED Physician Oswaldo Van HPI: 08/04 17:33 This 72 yrs old Female presents to ER via Ambulatory with complaints of Covid rt test. 17:33 Patient presents to the ED requesting a COVID test. She has had a cough for about 1 rt month symptoms traveling back home from the [facility]. She states the cough is somewhat improved. She denies any dyspnea, acute complaints. Symptoms are mild in severity, no other aggravating alleviating factors.. Historical: - Allergies: 14:05 Lipitor; ss - PMHx: 14:05 chronic kidney disease; Gastric Reflux; Hypertension; palpitations; ss - Family history:: not pertinent. ROS: 17:33 Constitutional: Negative for fever, chills, and weight loss, Cardiovascular: Negative rt for chest pain, palpitations, and edema, Abdomen/GI: Negative for abdominal pain, nausea, vomiting, diarrhea, and constipation, Skin: Negative for injury, rash, and discoloration, Neuro: Negative for headache, weakness, numbness, tingling, and seizure, Psych: Negative for depression, anxiety, suicide ideation, homicidal ideation, and hallucinations. 17:33 Respiratory: Positive for cough, Negative for shortness of breath. Exam: 17:33 Constitutional: This is a well developed, well nourished patient who is awake, alert, rt and in no acute distress. Chest/axilla: Normal chest wall appearance and motion. Nontender with no deformity. No lesions are appreciated. Cardiovascular: Regular rate and rhythm with a normal S1 and S2. No gallops, murmurs, or rubs. Normal PMI, no JVD. No pulse deficits. Respiratory: Lungs have equal breath sounds bilaterally, clear to auscultation and percussion. No rales, rhonchi or wheezes noted. No increased work of breathing, no retractions or nasal flaring. Abdomen/GI: Soft, non-tender, with normal bowel sounds. No distension or tympany. No guarding or rebound. No evidence of tenderness throughout. Skin: Warm, dry with normal turgor. Normal color with no rashes, no lesions, and no evidence of cellulitis. MS/ Extremity: Pulses equal, no cyanosis. Neurovascular intact. Full, normal range of motion. Neuro: Awake and alert, GCS 15, oriented to person, place, time, and situation. Cranial nerves II-XII grossly intact. Motor strength 5/5 in all extremities. Sensory grossly intact. Cerebellar exam normal. Normal gait. Psych: Awake, alert, with orientation to person, place and time. Behavior, mood, and affect are within normal limits. Vital Signs: 14:05 Pulse 77; Resp 15; Temp 98.6(TE); Pulse Ox 100% ; Weight 59.87 kg; Height 5 ft. 2 in. ; ss Pain 0/10; 14:07 BP 148 / 75; ss 14:05 Body Mass Index 24.14 (59.87 kg, 157.48 cm) ss 14:05 Pain Scale: Adult ss MDM: 14:06 Patient medically screened. rt 17:50 Differential Diagnosis: Other Pneumonia, bronchitis, allergic rhinitis. Data reviewed: rt vital signs, nurses notes, lab test result(s), radiologic studies. Independent interpretation of the following test(s) in the Emergency Department X-Ray: My interpretation is No consolidation seen on interpretation of the x-ray images. Test considered but Not performed: CT: Low suspicion for PE, CT angiogram not indicated. Counseling: I had a detailed discussion with the patient and/or guardian regarding: the historical points, exam findings, and any diagnostic results supporting the discharge/admit diagnosis, lab results, radiology results, the need for outpatient follow up, to return to the emergency department if symptoms worsen or persist or if there are any questions or concerns that arise at home. 08/04 14:09 Order name: SARS RAPID; Complete Time: 15:07 rt 08/04 14:09 Order name: Influenza Screen (a \T\ B); Complete Time: 15:07 rt 08/04 14:09 Order name: Chest Single View XRAY; Complete Time: 15:48 rt Administered Medications: No medications were administered Disposition Summary: 08/04/22 17:49 Discharge Ordered Location: Home rt Problem: new rt Symptoms: are unchanged rt Condition: Stable rt Diagnosis - Cough rt Followup: rt - With: Private Physician - When: 2 - 3 days - Reason: Discharge Instructions: - Discharge Summary Sheet rt - Cough, Adult rt Forms: - Medication Reconciliation Form rt - Thank You Letter rt - Antibiotic Education rt - Prescription Opioid Use rt - [email or web address] rt Signatures: Dispatcher [employer] Sultana Johnson RN RN Oswaldo Thompson MD MD rt
--- NOTE | 2022-08-04 17:50 | ER ---
Nurse's Notes [facility] Name: Risa Estrada Age: 72 yrs Sex: Female : 1950 Arrival Date: 08/04/2022 Time: 13:59 Bed DIS4 Private MD: Maikol Chowdhury H Diagnosis: Cough Presentation: 08/04 14:04 Chief complaint: Patient states: mild cough that has improved. is requesting a COVID test. Coronavirus screen: Client denies travel out of the [place] in the last 14 days. Ebola Screen: Patient denies exposure to infectious person. Patient denies travel to an Ebola-affected area in the 21 days before illness onset. Initial Sepsis Screen: Does the patient meet any 2 criteria? No. Patient's initial sepsis screen is negative. Does the patient have a suspected source of infection? No. Patient's initial sepsis screen is negative. Risk Assessment: Do you want to hurt yourself or someone else? Patient reports no desire to harm self or others. Onset of symptoms is unknown. 14:04 Method Of Arrival: Ambulatory ss 14:04 Acuity: ISIS 4 ss Historical: - Allergies: 14:05 Lipitor; ss - PMHx: 14:05 chronic kidney disease; Gastric Reflux; Hypertension; palpitations; ss - Family history:: not pertinent. Screenin:59 [facility] ED Fall Risk Assessment (Adult) History of falling in the last 3 months, kb3 including since admission No falls in past 3 months (0 pts). Abuse screen: Denies threats or abuse. Denies injuries from another. Nutritional screening: No deficits noted. Tuberculosis screening: Never had TB. Assessment: 17:59 Reassessment: Patient appears in no apparent distress at this time. Patient and/or kb3 family updated on plan of care and expected duration. Pain level reassessed. Patient is alert, oriented x 3, equal unlabored respirations, skin warm/dry/pink. Vital Signs: 14:05 Pulse 77; Resp 15; Temp 98.6(TE); Pulse Ox 100% ; Weight 59.87 kg; Height 5 ft. 2 in. ; ss Pain 0/10; 14:07 BP 148 / 75; ss 14:05 Body Mass Index 24.14 (59.87 kg, 157.48 cm) ss 14:05 Pain Scale: Adult ED Course: 14:00 Patient arrived in ED. im 14:01 Maikol Chowdhury DO is Private Physician. im 14:05 Triage completed. ss 14:05 Arm band placed on right wrist. ss 14:06 Oswaldo Van MD is Attending Physician. rt 14:16 SARS RAPID Sent. ss 14:16 Influenza Screen (a \T\ B) Sent. ss 14:37 Influenza Screen (a \T\ B) Sent. kj1 14:37 SARS RAPID Sent. kj1 15:11 Chest Single View XRAY In Process Unspecified. EDMS 17:59 Patient has correct armband on for positive identification. kb3 17:59 No provider procedures requiring assistance completed. Patient did not have IV access kb3 during this emergency room visit. Administered Medications: No medications were administered Medication: 17:59 VIS not applicable for this client. kb3 Outcome: 17:49 Discharge ordered by MD. rt 17:59 Discharged to home ambulatory. kb3 17:59 Condition: good 17:59 Discharge instructions given to patient, family, Instructed on discharge instructions, follow up and referral plans. Demonstrated understanding of instructions, follow-up care. 18:00 Patient left the ED. kb3 Signatures: Dispatcher [employer] EDMS Sultana Maldonado, RN RN Carlie Leslie kj1 Cielo Chu, RAYMOND RN kb3 Oswaldo Van MD MD rt Hiral Maxwell im
[2022-08-04 18:43] VITALS: TEMP 98.6; O2SAT 100
[2022-08-04 18:44] VITALS: BP 148/75
== END 2022-08-04 18:00 | disposition home or self-care (01) ==
LOC: ER 13:59
DX: R05.9 Cough, unspecified (principal); I12.9 Hypertensive chronic kidney disease with stage 1 through stage 4 chronic kidney disease, or unspecified chronic kidney disease; N18.9 Chronic kidney disease, unspecified; Z20.822 Contact with and (suspected) exposure to COVID-19; Z88.8 Allergy status to other drugs, medicaments and biological substances
CPT/HCPCS: 36415; 71045; 87804; 87811

== ENCOUNTER → 2023-03-26 | Emergency (ER) | payer OTHER ==
[~2023-03-26] MED LIST: FAMOTIDINE 20 MG/2 ML VIAL IV ONE; ONDANSETRON 4 MG/2 ML VIAL ONE
--- OUTSIDE RECORDS SUMMARY | 2023-03-26 09:22 | XMS REPORT | Continuity of Care Document ---
Author Name Unknown Address [address] [place] [address] [employer] Address [address] [place] [address] Care Team Providers Care Loss Prevention Associate Name Role Phone [email or web address] Attending Clinician Unavaila ble [email or web address] Admitting Clinician Unavaila ble Encounters Start Date/Time End Date/Time Encounter Type Admission Type Attending Clinicians Care Facility Care Department Encounter ID Source 2022-12-08 00:00:00 2022-12-08 00:00:00 Outpatient [email or web address] [facility] [id number] [facility]
[2023-03-26 09:52] LABS: Absolute Lymphocytes (CBC) 1.6 K/uL (0.7-4.9); Hematocrit 38.7 % (36.0-45.0); Lymphocytes % 32.5 % (15.3-44.8); MCV 85.7 fL (80-100); MPV 7.8 fL (7.6-11.3); Platelets 178 thou/uL (152-406); RBC Red Blood Cell Count 4.51 M/uL (3.86-4.86)
[2023-03-26 09:53] LABS: Specific Gravity 1.006 (1.005-1.030); Urine Bilirubin NEGATIVE (Negative); Urine Blood Negative (Negative); Urine Clarity Clear (Clear); Urine Color Colorless (Yellow); Urine Glucose NEGATIVE (Negative); Urine Protein NEGATIVE (Negative); Urine Urobilinogen Normal (Normal); Urine pH 5.5 (5.0-7.0)
[2023-03-26 10:14] LABS: Albumin 3.8 g/dL (3.4-5.0); Bilirubin Total 0.8 mg/dL (0.2-1.0); Potassium 3.4 mEq/L (3.5-5.1); Protein, Total 7.8 g/dL (6.4-8.2)
--- NOTE | 2023-03-26 12:41 | RAD REPORT ---
EXAM DESCRIPTION: CT - Abdomen Pelvis W Contrast - 03/26/2023 10:33 am CLINICAL HISTORY: epigastric pain, nausea COMPARISON: No comparisons TECHNIQUE: Thin cut axial CT imaging of the abdomen and pelvis was performed following intravenous a dministration of 100 mL Isovue 300. Multiplanar reformats were generated and reviewed. All CT scans are performed using dose optimization technique as appropriate and may include automated exposure control or mA/KV adjustment according to patient size. FINDINGS: No suspicious findings in the lung bases. The liver, spleen, adrenal glands, and pancreas show no suspicious findings. Gallbladder was surgical ly removed. Symmetric renal function is seen with no hydronephrosis or suspicious renal mass. Fluid filling within nondistended distal small bowel. Appendix is unremarkable. No dilated bowel loop s or bowel wall thickening. No free air, free fluid or inflammatory stranding. No hernia, mass or bul ky lymphadenopathy. The urinary bladder is without significant finding. No suspicious bony findings. IMPRESSION: Fluid filling of nondistended mid to distal small bowel loops, which may reflect enterit is or diarrheal state. No other acute intra-abdominal process.
--- NOTE | 2023-03-26 12:52 | ER ---
Nurse's Notes [facility] Name: Risa Estrada Age: 73 yrs Sex: Female : 1950 Arrival Date: 03/26/2023 Time: 09:19 Bed 15 Private MD: Diagnosis: Abdominal pain, unspecified;Nausea;Infectious gastroenteritis and colitis, unspecified Presentation: 03/26 09:30 Chief complaint: Patient states: epigastric pain radiating to right side, started a iw week ago. Coronavirus screen: At this time, the client does not indicate any symptoms associated with coronavirus-19. Ebola Screen: Patient negative for fever greater than or equal to 101.5 degrees Fahrenheit, and additional compatible Ebola Virus Disease symptoms Patient denies exposure to infectious person. Patient denies travel to an Ebola-affected area in the 21 days before illness onset. No symptoms or risks identified at this time. Initial Sepsis Screen: Does the patient meet any 2 criteria? No. Patient's initial sepsis screen is negative. Does the patient have a suspected source of infection? No. Patient's initial sepsis screen is negative. Risk Assessment: Do you want to hurt yourself or someone else? Patient reports no desire to harm self or others. Onset of symptoms was March 19, 2023. 09:30 Method Of Arrival: Ambulatory iw 09:30 Acuity: ISIS 3 iw Historical: - Allergies: :28 Lipitor; mb9 - Home Meds: 09:36 amlodipine 10 mg tab 1 tab once daily [Active]; Bystolic 10 mg Oral tab 1 tab once mb9 daily [Active]; losartan 100 mg Oral tab 1 tab once daily [Active]; - PMHx: 09:28 chronic kidney disease; Gastric Reflux; Hypertension; palpitations; mb9 - PSHx: 09:42 Cholecystectomy; mb9 - Immunization history:: Adult Immunizations up to date. - Social history:: Smoking status: Patient denies any tobacco usage or history of. - Family history:: not pertinent. - Hospitalizations: : No recent hospitalization is reported. Screenin:28 [facility] ED Fall Risk Assessment (Adult) History of falling in the last 3 months, mb9 including since admission No falls in past 3 months (0 pts) Confusion or Disorientation No (0 pts) Intoxicated or Sedated No (0 pts) Impaired Gait No (0 pts) Mobility Assist Device Used No (0 pt) Altered Elimination No (0 pt) Score/Fall Risk Level 0 - 2 = Low Risk Oriented to surroundings, Maintained a safe environment, Educated pt \T\ family on fall prevention, incl call for assistance when getting out of bed. Abuse screen: Denies threats or abuse. Nutritional screening: No deficits noted. Tuberculosis screening: No symptoms or risk factors identified. Assessment: 09:42 General: Appears in no apparent distress. Behavior is calm, cooperative. Pain: mb9 Complains of pain in abdomen Pain radiates to RUQ and back Pain currently is 6 out of 10 on a pain scale. Quality of pain is described as throbbing, Pain began 1 wk ago Is intermittent. Neuro: Rolle Agitation-Sedation Scale (RASS): 0 - Alert and Calm Level of Consciousness is awake, alert, obeys commands, Oriented to person, place, time, situation, Appropriate for age. Cardiovascular: Patient's skin is warm and dry. Respiratory: Airway is patent Respiratory effort is even, unlabored, Respiratory pattern is regular, symmetrical. GI: Abdomen is flat, non-distended, Bowel sounds present X 4 quads. Abd is soft and non tender X 4 quads. Reports nausea. : No signs and/or symptoms were reported regarding the genitourinary system. EENT: No signs and/or symptoms were reported regarding the EENT system. Derm: Skin is pink, warm \T\ dry. Musculoskeletal: Range of motion: intact in all extremities. 10:56 Reassessment: No changes from previously documented assessment. Patient and/or family mb9 updated on plan of care and expected duration. Pain level reassessed. Patient is alert, oriented x 3, equal unlabored respirations, skin warm/dry/pink. 12:35 Reassessment: No changes from previously documented assessment. Patient and/or family mb9 updated on plan of care and expected duration. Pain level reassessed. Patient is alert, oriented x 3, equal unlabored respirations, skin warm/dry/pink. Vital Signs: 09:30 BP 118 / 80; Pulse 80; Resp 16; Temp 98; Pulse Ox 100% on R/A; Weight 59.87 kg; Height iw 5 ft. 2 in. ; Pain 6/10; 10:57 BP 128 / 72; Pulse 78; Resp 16; Pulse Ox 100% on R/A; mb9 12:37 BP 125 / 61; Pulse 58; Resp 16; Pulse Ox 99% on R/A; mb9 13:06 BP 128 / 72; Pulse 62; Resp 16; Pulse Ox 100% on R/A; mb9 09:30 Body Mass Index 24.14 (59.87 kg, 157.48 cm) iw 09:30 Pain Scale: Adult iw ED Course: 09:22 Patient arrived in ED. im 09:23 Eric Armijo MD is Attending Physician. rn 09:27 Yari Madison RN is Primary Nurse. mb9 09:28 Arm band placed on. mb9 09:28 Placed in gown. Bed in low position. Call light in reach. Side rails up X 1. Client mb9 placed on continuous cardiac and pulse oximetry monitoring. NIBP monitoring applied. 09:31 Triage completed. iw 09:46 Initial lab(s) drawn, by me, sent to lab. Inserted saline lock: 20 gauge in right aw1 antecubital area, using aseptic technique. 09:46 Urine collected: clean catch specimen, clear. aw1 10:33 CT Abd/Pelvis - IV Contrast Only In Process Unspecified. EDMS 13:07 No provider procedures requiring assistance completed. IV discontinued, intact, mb9 bleeding controlled, No redness/swelling at site. Pressure dressing applied. Administered Medications: 09:50 Drug: Famotidine IVP 20 mg IVP once; dilute with 10 mL 0.9% NaCl; give over 2 minutes mb9 Route: IVP; Site: right antecubital; 12:03 Follow up: Response: No adverse reaction mb9 09:52 Drug: Ondansetron IVP 4 mg IVP once; over 2 minutes Route: IVP; Site: right antecubital;mb9 12:03 Follow up: Response: No adverse reaction mb9 Medication: 09:29 VIS not applicable for this client. mb9 Outcome: 12:51 Discharge ordered by . rn 13:07 Discharged to home ambulatory, mb9 13:07 Condition: stable 13:07 Discharge instructions given to patient, Instructed on discharge instructions, follow up and referral plans. Demonstrated understanding of instructions, follow-up care, medications, Prescriptions given X 2, 13:07 Patient left the ED. mb9 Signatures: Dispatcher [employer] Allie Epperson, RAYMOND RN iw Eric Armijo MD MD rn Breneman, Yari Madden RN RN mb9 Hiral Maxwell, Lulu [facility]
--- NOTE | 2023-03-26 12:52 | EDPHYS ---
Physician Documentation [facility] Name: Risa Estrada Age: 73 yrs Sex: Female : 1950 Arrival Date: 03/26/2023 Time: 09:19 Bed 15 Private MD: ED Physician Eric Armijo HPI: 03/26 09:34 This 73 yrs old Female presents to ER via Ambulatory with complaints of Abdominal rn Pain, Back Pain, Nausea. 09:34 The patient presents with abdominal pain in the epigastric area. Onset: The rn symptoms/episode began/occurred 2 week(s) ago. The symptoms radiate to back. Associated signs and symptoms: Pertinent positives: nausea, Pertinent negatives: blood in stools, chest pain, constipation, diarrhea, fever. The symptoms are described as achy, crampy. The symptoms are described as burning. Modifying factors: The symptoms are alleviated by nothing, the symptoms are aggravated by food. Severity of pain: At its worst the pain was mild in the emergency department the pain is unchanged. The patient has experienced similar episodes in the past. The patient has not recently seen a physician. Pt reports epigastric abd pain for > 2 weeks. Has had before, diagnosed with gastric ulcers and acid reflux in past. No intestinal bleeding noted. + nausea. Slightly worse after eating. Compliant with antacids. . Historical: - Allergies: 09:28 Lipitor; mb9 - Home Meds: 09:36 amlodipine 10 mg tab 1 tab once daily [Active]; Bystolic 10 mg Oral tab 1 tab once mb9 daily [Active]; losartan 100 mg Oral tab 1 tab once daily [Active]; - PMHx: 09:28 chronic kidney disease; Gastric Reflux; Hypertension; palpitations; mb9 - PSHx: 09:42 Cholecystectomy; mb9 - Immunization history:: Adult Immunizations up to date. - Social history:: Smoking status: Patient denies any tobacco usage or history of. - Family history:: not pertinent. - Hospitalizations: : No recent hospitalization is reported. ROS: 09:37 Constitutional: Negative for fever, chills, and weight loss, Neck: Negative for injury, rn pain, and swelling, Cardiovascular: Negative for chest pain, palpitations, and edema, Respiratory: Negative for shortness of breath, cough, wheezing, and pleuritic chest pain, Abdomen/GI: + abd pain and nausea Back: Negative for injury MS/Extremity: Negative for injury and deformity, Skin: Negative for injury, rash, and discoloration, Neuro: Negative for headache, weakness, numbness, tingling, and seizure, Exam: 09:37 Constitutional: This is a well developed, well nourished patient who is awake, alert, rn and in no acute distress. Cardiovascular: Regular rate and rhythm. No pulse deficits. Respiratory: No increased work of breathing, no retractions or nasal flaring. Abdomen/GI: soft, mild epigastric tenderness, no rebound, no masses, neg max MS/ Extremity: Pulses equal, no cyanosis. Neuro: Awake and alert, GCS 15 Vital Signs: 09:30 BP 118 / 80; Pulse 80; Resp 16; Temp 98; Pulse Ox 100% on R/A; Weight 59.87 kg; Height iw 5 ft. 2 in. ; Pain 6/10; 10:57 BP 128 / 72; Pulse 78; Resp 16; Pulse Ox 100% on R/A; mb9 12:37 BP 125 / 61; Pulse 58; Resp 16; Pulse Ox 99% on R/A; mb9 13:06 BP 128 / 72; Pulse 62; Resp 16; Pulse Ox 100% on R/A; mb9 09:30 Body Mass Index 24.14 (59.87 kg, 157.48 cm) iw 09:30 Pain Scale: Adult iw MDM: 09:23 Patient medically screened. rn 12:50 Differential diagnosis: appendicitis, bowel obstruction, diverticulitis, gastritis, rn gastroesophageal reflux disease, non-specific abd pain, pancreatitis, Peptic Ulcer Disease, Perf. Duodenal Ulcer, Perf. Gastric Ulcer, Peritonitis, Ureterolithiasis, urinary tract infection. Data reviewed: vital signs, nurses notes, lab test result(s), radiologic studies, CT scan, and as a result, I will discharge patient. Care significantly affected by the following chronic conditions: Hypertension, Chronic Kidney Disease. Counseling: I had a detailed discussion with the patient and/or guardian regarding the historical points, exam findings, and any diagnostic results supporting the discharge/admit diagnosis, lab results, radiology results, the need for outpatient follow up, to return to the emergency department if symptoms worsen or persist or if there are any questions or concerns that arise at home. Response to treatment: the patient's symptoms have mildly improved after treatment, and as a result, I will discharge patient. Special discussion: Based on the patient's Hx, exam, and Dx evaluation, there is no indication for emergent surgery or inpatient Tx. It is understood by the patient/guardian that if the Sx's persist or worsen they need to return immediately for re-evaluation. I discussed with the patient/guardian in detail that at this point there is no indication for admission to the hospital. It is understood, however, that if the symptoms persist or worsen the patient needs to return immediately for re-evaluation. 03/26 09:29 Order name: CBC with Diff; Complete Time: 10:43 rn 03/26 09:29 Order name: CMP; Complete Time: 10:43 rn 03/26 09:29 Order name: Lipase; Complete Time: 10:43 rn 03/26 09:29 Order name: Urinalysis w/ reflexes; Complete Time: 10:43 rn 03/26 09:29 Order name: CT Abd/Pelvis - IV Contrast Only; Complete Time: 12:50 rn 03/26 09:29 Order name: IV Saline Lock; Complete Time: 09:50 rn 03/26 09:29 Order name: Labs collected and sent; Complete Time: 09:50 rn Administered Medications: 09:50 Drug: Famotidine IVP 20 mg IVP once; dilute with 10 mL 0.9% NaCl; give over 2 minutes mb9 Route: IVP; Site: right antecubital; 12:03 Follow up: Response: No adverse reaction mb9 09:52 Drug: Ondansetron IVP 4 mg IVP once; over 2 minutes Route: IVP; Site: right antecubital;mb9 12:03 Follow up: Response: No adverse reaction mb9 Disposition Summary: 03/26/23 12:51 Discharge Ordered Notes: Location: Home rn Problem: new rn Symptoms: have improved rn Condition: Stable rn Diagnosis - Abdominal pain, unspecified rn - Nausea rn - Infectious gastroenteritis and colitis, unspecified rn Followup: rn - With: Private Physician - When: As needed - Reason: Recheck today's complaints, Re-evaluation by your physician Discharge Instructions: - Discharge Summary Sheet rn - Abdominal Pain, Adult rn - Nausea, Adult rn Forms: - Medication Reconciliation Form rn - Thank You Letter rn - 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
[2023-03-26 13:16] VITALS: BP 128/72; TEMP 98; O2SAT 100
== END ==
LOC: ER 09:19
DX: A09 Infectious gastroenteritis and colitis, unspecified (principal); R11.0 Nausea; I12.9 Hypertensive chronic kidney disease with stage 1 through stage 4 chronic kidney disease, or unspecified chronic kidney disease; N18.9 Chronic kidney disease, unspecified; Z88.8 Allergy status to other drugs, medicaments and biological substances
CPT/HCPCS: 85025; 36415; 81003; 83690; 80053; 74177; 96375; 96374; 99284; Q9967; J2405

== ENCOUNTER 2023-07-18 22:30 | Emergency (ER) | payer OTHER ==
--- OUTSIDE RECORDS SUMMARY | 2023-07-18 22:34 | XMS REPORT | Continuity of Care Document ---
Author Name Unknown Address [address] [place] [address] [employer]connect Address [address] [place] [address] Care Team Providers Care Compliance Counsel Name Role Phone [email or web address] Attending Clinician Unavaila ble [email or web address] Admitting Clinician Unavaila ble Encounters Start Date/Time End Date/Time Encounter Type Admission Type Attending Clinicians Care Facility Care Department Encounter ID Source 2022-12-08 00:00:00 2022-12-08 00:00:00 Outpatient [email or web address] [facility] [id number] [facility]
[2023-07-18] MEDS ORDERED: MAGNES/ALUMIN/SIMET 30ML UCUP ONE (23:17)
[2023-07-18] MEDS ORDERED: LIDOCAINE VISCOUS 2% 10ML ORAL SOLN ONE (23:18)
[2023-07-18] MEDS ORDERED: FAMOTIDINE 20 MG/2 ML VIAL IV ONE (23:18)
[2023-07-18 23:59] LABS: Absolute Monocytes 0.4 K/uL (0.1-1.3); Absolute Neutrophil 4.4 K/uL (1.8-8.0); Basophils % 0.1 % (0-1.3); Eosinophils % 0.8 % (0-4.4); Hematocrit 37.2 % (36.0-45.0); Hemoglobin 12.7 g/dL (12.0-15.0); Lymphocytes % 16.8 % (15.3-44.8); MCH 29.4 pg (27.0-35.0); MCHC 34.2 g/dL (32.0-36.0); MCV 85.8 fL (80-100); MPV 8.5 fL (7.6-11.3); Monocytes % 7.5 % (3.3-12.3); Neutrophils % 74.8 % (41.7-73.7); Nucleated Red Blood Cells % 0.1 % (0-0); Platelets 148 thou/uL (152-406); RBC Red Blood Cell Count 4.34 M/uL (3.86-4.86); Red Cell Distribution Width 12.2 % (12.1-15.2)
[2023-07-19 00:14] LABS: Albumin 3.8 g/dL (3.4-5.0); Anion Gap 7.8 mEq/L (5.0-15.0); Bilirubin Total 0.5 mg/dL (0.2-1.0); Globulin 3.7 g/dL (2.3-3.5); Potassium 3.8 mEq/L (3.5-5.1); Protein, Total 7.5 g/dL (6.4-8.2); Troponin High Sensitivity 3.7 pg/mL (<58.9)
--- NOTE | 2023-07-19 00:25 | EDPHYS ---
Physician Documentation [facility] Name: Risa Estrada Age: 73 yrs Sex: Female : 1950 Arrival Date: 07/18/2023 Time: 22:30 Bed 20 Private MD: ED Physician Eric Armijo HPI: 07/17 22:39 This 73 yrs old Female presents to ER via Unassigned with complaints of Low Back kb Pain, Abdominal Pain. 22:39 Pt is a 73 year old female who presents for burning pain to epigastric area that kb started this morning. States she has GERD and has had this burning pain in the past due to that, but it has been worse today. Also reports RUQ pain since March and RLQ pain that radiates to right low back for 2 months. States she came in tonight because her BP is high. Denies n/v/d, fever, chest pain. . Historical: - Allergies: 22:52 Lipitor; kb3 - Home Meds: 22:52 amlodipine 5 mg oral tablet [Active]; losartan 25 mg oral tablet [Active]; nebivolol 10 kb3 mg oral tablet [Active]; cimetidine 400 mg oral tablet [Active]; potassium chloride 20 mEq Oral Tablet, ER Particles/Crystals [Active]; sodium chloride tablet [Active]; Vitamin D Oral [Active]; - PMHx: 22:52 chronic kidney disease; Gastric Reflux; Hypertension; palpitations; kb3 - PSHx: 22:52 Cholecystectomy; Total abdominal hysterectomy; kb3 - Immunization history:: Adult Immunizations up to date, Client reports receiving the 2nd dose of the Covid vaccine, Last tetanus immunization: up to date. - Infectious Disease History:: Denies. - Social history:: Smoking status: Patient denies any tobacco usage or history of. ROS: 22:39 Constitutional: As per HPI kb Exam: 22:39 Constitutional: This is a well developed, well nourished patient who is awake, alert, kb and in no acute distress. Head/Face: Normocephalic, atraumatic. ENT: Moist Mucous membranes Cardiovascular: Regular rate Respiratory: Respirations even and unlabored. No increased work of breathing. Talking in full sentences Abdomen/GI: Soft, non-tender. No distention Skin: Warm, dry with normal turgor. Normal color. MS/ Extremity: Pulses equal, no cyanosis. Neurovascular intact. Full, normal range of motion. Neuro: Awake and alert, GCS 15, oriented to person, place, time, and situation. Moves all extremities. Normal gait. 23:37 ECG was reviewed by the Attending Physician. kb Vital Signs: 22:50 BP 142 / 92; Pulse 80; Resp 18; Temp 98.2; Pulse Ox 99% ; Weight 58.97 kg; Height 5 ft. kb3 2 in. ; Pain 8/10; 23:53 BP 142 / 70; Pulse 73; Resp 18; Pulse Ox 100% on R/A; cm10 22:50 Body Mass Index 23.78 (58.97 kg, 157.48 cm) kb3 22:50 Pain Scale: Adult kb3 MDM: 22:36 Patient medically screened. kb 07/18 00:18 Differential diagnosis: gastritis, gastroesophageal reflux disease, myocardia ischemia kb or infarction, non-specific abd pain, pancreatitis, Ureterolithiasis, urinary tract infection. Data reviewed: vital signs, nurses notes. Counseling: I had a detailed discussion with the patient and/or guardian regarding the historical points, exam findings, and any diagnostic results supporting the discharge/admit diagnosis, lab results, radiology results, the need for outpatient follow up, a family practitioner, to return to the emergency department if symptoms worsen or persist or if there are any questions or concerns that arise at home. 07/17 22:43 Order name: CBC with Diff; Complete Time: 00:04 kb 07/17 22:43 Order name: CMP; Complete Time: 00:18 kb 07/17 22:43 Order name: Lipase; Complete Time: 00:18 kb 07/17 22:43 Order name: Troponin HS; Complete Time: 00:18 kb 07/17 22:43 Order name: CT Abd/Pelvis - Without Contrast kb 07/17 22:43 Order name: XRAY Chest (1 view) kb 07/17 22:43 Order name: EKG; Complete Time: 22:44 kb 07/17 22:43 Order name: IV Saline Lock; Complete Time: 23:38 kb 07/17 22:43 Order name: Labs collected and sent; Complete Time: 23:38 kb 07/17 22:43 Order name: Cardiac monitoring; Complete Time: 23:38 kb 07/17 22:43 Order name: EKG - Nurse/Tech; Complete Time: 23:38 kb 07/17 22:43 Order name: O2 Per Protocol; Complete Time: 23:38 kb 07/17 22:43 Order name: O2 Sat Monitoring; Complete Time: 23:38 kb EC/09 23:37 Rate is 70 beats/min. Rhythm is regular. QRS Nicolaus is Normal. RI interval is normal at kb 188 msec. QRS interval is normal at 88 msec. QT interval is normal at 457 msec. Administered Medications: 23:38 Drug: Famotidine IVP 20 mg IVP once; dilute with 10 mL 0.9% NaCl; give over 2 minutes cm10 Route: IVP; Site: right antecubital; 23:38 Drug: GI Cocktail without - (Maalox PO 30 ml, Lidocaine Mucous Membrane 2 % 15 cm10 ml) PO once Route: PO; Disposition: 07/18 01:06 Co-signature as Attending Physician, Eric Armijo MD I reviewed the patient's care rn provided by the Advanced Practice Provider and agree with the diagnosis and treatment plan. Disposition Summary: 07/19/23 00:25 Discharge Ordered Notes: Location: Home kb Condition: Stable kb Diagnosis - Abdominal pain, Generalized kb Followup: kb - With: Emergency Department - When: As needed - Reason: Worsening of condition Followup: kb - With: Private Physician - When: 2 - 3 days - Reason: Recheck today's complaints, Continuance of care, Re-evaluation by your physician Discharge Instructions: - Discharge Summary Sheet kb - Abdominal Pain, Adult, [id number] kb Forms: - Medication Reconciliation Form kb - Antibiotic Education kb - Prescription Opioid Use kb - Patient Portal Instructions kb - Leadership Thank You Letter kb Signatures: Dispatcher [employer] EDMS Elina Acosta, TOOLER-C TOOLER-Ckb Eric Armijo MD MD rn Bradberry, Kelly, RN RN kb3 Tania Roche, RAYMOND RN cm10 Corrections: (The following items were deleted from the chart) 07/17 22:44 22:44 CBC+H.LAB.BRZ ordered. EDMS EDMS 22:44 22:44 COMPREHENSIVE METABOLIC PANEL+C.LAB.BRZ ordered. EDMS EDMS 22:44 22:44 LIPASE+C.LAB.BRZ ordered. EDMS EDMS 22:44 22:44 Troponin High Sensitivity+C.LAB.BRZ ordered. EDMS EDMS 22:54 22:52 Home Meds: Bystolic 10 mg Oral tab 1 tab once daily; kb3 kb3
--- NOTE | 2023-07-19 00:25 | ER ---
Nurse's Notes [facility] Name: Risa Estrada Age: 73 yrs Sex: Female : 1950 Arrival Date: 07/18/2023 Time: 22:30 Bed 20 Private MD: Diagnosis: Abdominal pain, Generalized Presentation: 07/17 22:50 Chief complaint: Patient states: Severe epigastric burning since this morning. kb3 Coronavirus screen: Vaccine status: Patient reports receiving the 2nd dose of the covid vaccine. Client denies travel out of the [place] in the last 14 days. Ebola Screen: Patient negative for fever greater than or equal to 101.5 degrees Fahrenheit, and additional compatible Ebola Virus Disease symptoms Patient denies exposure to infectious person. Patient denies travel to an Ebola-affected area in the 21 days before illness onset. Initial Sepsis Screen: Does the patient meet any 2 criteria? No. Patient's initial sepsis screen is negative. Does the patient have a suspected source of infection? No. Patient's initial sepsis screen is negative. Risk Assessment: Do you want to hurt yourself or someone else? Patient reports no desire to harm self or others. Onset of symptoms was July 18, 2023. 22:50 Method Of Arrival: Ambulatory kb3 22:50 Acuity: ISIS 3 kb3 Triage Assessment: 22:52 General: Appears in no apparent distress. uncomfortable, Behavior is calm, cooperative. kb3 Pain: Complains of pain in epigastric area. GI: Reports epigastric pain. Historical: - Allergies: 22:52 Lipitor; kb3 - Home Meds: 22:52 amlodipine 5 mg oral tablet [Active]; losartan 25 mg oral tablet [Active]; nebivolol 10 kb3 mg oral tablet [Active]; cimetidine 400 mg oral tablet [Active]; potassium chloride 20 mEq Oral Tablet, ER Particles/Crystals [Active]; sodium chloride tablet [Active]; Vitamin D Oral [Active]; - PMHx: 22:52 chronic kidney disease; Gastric Reflux; Hypertension; palpitations; kb3 - PSHx: 22:52 Cholecystectomy; Total abdominal hysterectomy; kb3 - Immunization history:: Adult Immunizations up to date, Client reports receiving the 2nd dose of the Covid vaccine, Last tetanus immunization: up to date. - Infectious Disease History:: Denies. - Social history:: Smoking status: Patient denies any tobacco usage or history of. Screenin:52 [facility] ED Fall Risk Assessment (Adult) History of falling in the last 3 months, cm10 including since admission No falls in past 3 months (0 pts) Confusion or Disorientation No (0 pts) Intoxicated or Sedated No (0 pts) Impaired Gait No (0 pts) Mobility Assist Device Used No (0 pt) Altered Elimination No (0 pt) Score/Fall Risk Level 0 - 2 = Low Risk Oriented to surroundings, Maintained a safe environment, Hourly rounding (assess needs \T\ fall precautionary measures) done. Abuse screen: Denies threats or abuse. Denies injuries from another. Nutritional screening: No deficits noted. Tuberculosis screening: No symptoms or risk factors identified. Assessment: 23:30 General: Appears in no apparent distress. comfortable, Behavior is calm, cooperative. cm10 Pain: Complains of pain in abdomen and epigastric area. Neuro: No deficits noted. Level of Consciousness is awake, alert, obeys commands, Oriented to person, place, time, situation, Appropriate for age. Cardiovascular: No deficits noted. Patient's skin is warm and dry. Rhythm is regular. Respiratory: No deficits noted. Airway is patent Respiratory effort is even, unlabored, Respiratory pattern is regular, symmetrical. GI: Bowel sounds present X 4 quads. Abd is soft and non tender X 4 quads. Reports upper abdominal pain, indigestion. Derm: No deficits noted. Skin is healthy with good turgor, Skin is pink, warm \T\ dry. Musculoskeletal: No deficits noted. No signs and/or symptoms reported regarding the musculoskeletal system. Range of motion: intact in all extremities. 07/18 00:36 Reassessment: Patient appears in no apparent distress at this time. Patient and/or jb4 family updated on plan of care and expected duration. Pain level reassessed. Patient is alert, oriented x 3, equal unlabored respirations, skin warm/dry/pink. Vital Signs: 07/17 22:50 BP 142 / 92; Pulse 80; Resp 18; Temp 98.2; Pulse Ox 99% ; Weight 58.97 kg; Height 5 ft. kb3 2 in. ; Pain 8/10; 23:53 BP 142 / 70; Pulse 73; Resp 18; Pulse Ox 100% on R/A; cm10 22:50 Body Mass Index 23.78 (58.97 kg, 157.48 cm) kb3 22:50 Pain Scale: Adult kb3 ED Course: 22:36 Patient arrived in ED. gm2 22:36 Elina Acosta FNP-C [facility]. kb 22:36 Eric Armijo MD is Attending Physician. kb 22:52 Triage completed. kb3 22:52 Arm band placed on right wrist. Patient placed in an exam room, on a stretcher. kb3 23:09 XRAY Chest (1 view) In Process Unspecified. EDMS 23:14 Tania Roche, RAYMOND is Primary Nurse. cm10 23:30 Initial lab(s) drawn, by me, sent to lab. EKG done, by ED staff, reviewed by Elina LUKE. Inserted saline lock: 20 gauge in right antecubital area, using aseptic technique. Blood collected. 23:[address] via stretcher. cm10 23:38 Troponin HS Sent. cm10 23:38 CBC with Diff Sent. cm10 23:38 CMP Sent. cm10 23:38 Lipase Sent. cm10 23:42 CT Abd/Pelvis - Without Contrast In Process Unspecified. EDMS 23:[address] Patient moved back from [address]. cm10 23:52 Patient has correct armband on for positive identification. Placed in gown. Bed in low cm10 position. Call light in reach. Side rails up X2. Provided Education on: ER process and procedures. Client placed on continuous cardiac and pulse oximetry monitoring. NIBP monitoring applied. environmental monitoring technician on. Door closed. Lights dimmed. Warm blanket given. 07/18 00:02 Report given to RAYMOND Ruelas. cm10 00:36 No provider procedures requiring assistance completed. IV discontinued, intact, jb4 bleeding controlled, No redness/swelling at site. Pressure dressing applied. Administered Medications: 07/17 23:38 Drug: Famotidine IVP 20 mg IVP once; dilute with 10 mL 0.9% NaCl; give over 2 minutes cm10 Route: IVP; Site: right antecubital; 23:38 Drug: GI Cocktail without - (Maalox PO 30 ml, Lidocaine Mucous Membrane 2 % 15 cm10 ml) PO once Route: PO; Medication: 23:52 VIS not applicable for this client. cm10 Outcome: 07/18 00:25 Discharge ordered by . alena 00:36 Discharged to home ambulatory, jb4 00:36 Condition: stable 00:36 Discharge instructions given to patient, Instructed on discharge instructions, follow up and referral plans. Demonstrated understanding of instructions, follow-up care, 00:37 Patient left the ED. jb4 Signatures: Dispatcher [employer] EDMS Elina Acosta, POWER SHOVEL OPERATOR HELPER-C POWER SHOVEL OPERATOR HELPER-Luis Eduardo Aguayo RN RN jb4 Cielo Chu RN RN kb3 Tania Roche RN RN cm10 Rena Cisneros 2 Corrections: (The following items were deleted from the chart) 07/17 22:54 22:52 Home Meds: Bystolic 10 mg Oral tab 1 tab once daily; kb3 kb3
[2023-07-19 01:11] VITALS: BP 142/70; TEMP 98.2; O2SAT 100
--- NOTE | 2023-07-19 12:03 | EKG ---
Test Date: 2023-07-18 Test Time: 23:26:59 Collar Fuser: LINDA MEASUREMENT RESULTS: Intervals: Rate: 70 ID: [id number] QRSD: 88 QT: 424 QTc: 457 Anabel: P: 49 ID: [id number] QRS: 85 T: 60 INTERPRETIVE STATEMENTS: Normal sinus rhythm Normal ECG Compared to ECG 06/16/2021 00:29:55 No significant changes Electronically Signed On 07-19-23 12:02:20 CDT by Khalif Hogan
--- NOTE | 2023-07-19 13:08 | RAD REPORT ---
EXAM DESCRIPTION: Abdomen Pelvis Wo Contrast 07/18/2023 11:57 PM CDT CLINICAL HISTORY: 73 years, Female, ABD PAIN COMPARISON: 04/08 TECHNIQUE: Noncontrast images of the abdomen and pelvis were performed utilizing 5 mm slice thicknes s at 5 mm interval reconstruction from the lung bases to the ischial tuberosities. In addition multiplanar reformats in the coronal and sagittal plane were obtained and reviewed. An individualized dose optimization technique, Automated Exposure Control, was utilized for the perfo rmed procedure. FINDINGS: The lack of IV contrast limits evaluation of solid organs, subtle lesions cannot be exclude d. Lung bases: The lung bases demonstrate to be clear. Liver: Grossly the unopacified liver demonstrates to be normal, no focal lesions are identified. Gallbladder: Surgical clips within the gallbladder fossa corresponding to previous cholecystectomy. N o significant biliary duct dilatation. Adrenal glands: Grossly the unopacified adrenal glands demonstrate to be normal. Pancreas: Grossly the unopacified pancreas demonstrate to be normal Spleen: The spleen demonstrate to be normal. Kidneys: Grossly the unopacified kidneys demonstrate to be within normal limits. Again there is a 2 mm upper pole right renal calculus on axial image 22. There are no significant cystic lesions. GI: Grossly the unopacified stomach, small bowel and large bowel demonstrate to be within normal limi ts. No evidence for bowel dilatation and/or free air. The appendix is normal. The left-sided colon de monstrate to be decompressed with no gross abnormalities. : The urinary bladder demonstrate to be unremarkable. Genitalia: The uterus is absent. There are no adnexal masses. Abdominal aorta: The aorta demonstrate demonstrated presence of minimal peripheral atheromatous plaqu e extending into the aortic bifurcation. Retroperitoneum: There is no retroperitoneal lymphadenopathy. There is no evidence for ascites and/or abnormal fluid collections. Bones: The bony structures demonstrate to be within normal limits. Soft tissues: The soft tissues demonstrate unremarkable. IMPRESSION: 2 mm upper pole right renal calculus. Status post cholecystectomy and hysterectomy. No evidence for acute intra-abdominal process. No significant interval change. Electronically signed by: Glynn Block MD 07/18/2023 11:59 PM CDT Due to temporary technical issues with the PACS/Fluency reporting system, reports are being signed by the in house radiologist without review as a courtesy to ensure prompt reporting. The interpreting r adiologist is fully responsible for the content of the report.
--- NOTE | 2023-07-19 13:19 | RAD REPORT ---
EXAM DESCRIPTION: Chest Single View CLINICAL HISTORY: Epigastric pain TECHNIQUE: AP chest COMPARISON: None available for comparison FINDINGS: CHEST: Heart: The cardiomediastinal silhouette is within normal limits. Lungs: No focal consolidation. Mediastinum: Unremarkable Pleura: No appreciable effusion. No pneumothorax. Bones: Intact IMPRESSION: No acute cardiopulmonary disease. Electronically signed by: Tank Donaldson MD 07/18/2023 11:24 PM CDT RP Due to temporary technical issues with the PACS/Fluency reporting system, reports are being signed by the in house radiologist without review as a courtesy to ensure prompt reporting. The interpreting r adiologist is fully responsible for the content of the report.
== END 2023-07-19 00:37 | disposition home or self-care (01) ==
LOC: ER 22:30
DX: R10.84 Generalized abdominal pain (principal); I10 Essential (primary) hypertension
CPT/HCPCS: 36415; 71045; 74176; 80053; 83690; 84484; 85025; 93005; 96374; 99285

== ENCOUNTER 2024-11-28 14:17 | Emergency (ER) | payer OTHER ==
--- NOTE | 2024-11-28 14:29 | EDPHYS ---
Physician Documentation [facility] Name: Risa Estrada Age: 74 yrs Sex: Female : 1950 Arrival Date: 11/28/2024 Time: 14:17 Bed 5 Private MD: ED Physician Varun Elam HPI: 11/28 15:04 This 74 yrs old Female presents to ER via Ambulatory with complaints of Shoulder ms3 Pain, Flank Pain. 15:04 74-year-old female with past medical history of CKD, gastric reflux, hypertension, ms3 palpitations presents to the emergency department for left shoulder pain that has been ongoing for 3 days that shoots down her left arm. Patient states this morning she developed right-sided chest pain that radiates across her chest. Patient states her discomfort is a 4/10. Patient denies nausea or vomiting. Patient denies any alleviating or inciting factors. Historical: - Allergies: 14:39 Lipitor; dd2 14:39 SUCRALFATE; dd2 - PMHx: 14:39 chronic kidney disease; Gastric Reflux; Hypertension; palpitations; dd2 - PSHx: 14:39 Cholecystectomy; Total abdominal hysterectomy; dd2 - Immunization history:: Adult Immunizations unknown. - Infectious Disease History:: Denies. - Social history:: Smoking status: Patient denies any tobacco usage or history of. ROS: 15:04 Constitutional: Negative for fever, and chills. Respiratory: Negative for shortness of ms3 breath, cough, wheezing, and pleuritic chest pain, Abdomen/GI: Negative for abdominal pain, nausea, vomiting, diarrhea, and constipation, 15:04 MS/Extremity: Negative for injury and deformity, Skin: Negative for injury, rash, and discoloration, 15:04 Cardiovascular: Positive for chest pain, 15:04 MS/extremity: Positive for left shoulder pain, Exam: 15:12 Constitutional: This is a well developed, well nourished patient who is awake, alert, ms3 and in no acute distress. Cardiovascular: Regular rate and rhythm with a normal S1 and S2. No gallops, murmurs, or rubs. Normal PMI, no JVD. No pulse deficits. Respiratory: Lungs have equal breath sounds bilaterally, clear to auscultation and percussion. No rales, rhonchi or wheezes noted. No increased work of breathing, no retractions or nasal flaring. Abdomen/GI: Soft, non-tender, with normal bowel sounds. No distension or tympany. No guarding or rebound. No evidence of tenderness throughout. Skin: Warm, dry with normal turgor. Normal color with no rashes, no lesions, and no evidence of cellulitis. MS/ Extremity: Pulses equal, no cyanosis. Neurovascular intact. Full, normal range of motion. 15:12 ECG was reviewed by the Attending Physician. Vital Signs: 14:38 BP 162 / 80; Pulse 79; Resp 16; Temp 98.1; Pulse Ox 98% ; Weight 60.33 kg; Pain 4/10; dd2 15:30 BP 143 / 75; Pulse 61; Resp 18; Temp 98.2; Pulse Ox 100% on R/A; Pain 2/10; zm 16:54 BP 132 / 75; Pulse 58; Resp 16; Temp 98.3; Pulse Ox 98% on R/A; Pain 2/10; zm 18:46 BP 133 / 77; Pulse 58; Resp 16; Temp 98.1; Pulse Ox 100% on R/A; Pain 0/10; zm 19:15 BP 147 / 85; Pulse 60; Resp 18; Pulse Ox 100% on R/A; af3 14:38 Pain Scale: Adult dd2 15:30 Pain Scale: Adult zm 16:54 Pain Scale: Adult zm 18:46 Pain Scale: Adult zm Claudia Coma Score: 15:30 Eye Response: spontaneous(4). Motor Response: obeys commands(6). Verbal Response: zm oriented(5). Total: 15. 16:54 Eye Response: spontaneous(4). Motor Response: obeys commands(6). Verbal Response: zm oriented(5). Total: 15. 18:46 Eye Response: spontaneous(4). Motor Response: obeys commands(6). Verbal Response: zm oriented(5). Total: 15. MDM: 14:29 Medical Screening Exam initiated ms3 15:13 Differential diagnosis: MT vs Chest pain vs OA. ms3 18:56 Data reviewed: vital signs, nurses notes, lab test result(s), EKG, radiologic studies, ms3 and as a result, I will discharge patient. Independent interpretation of the following test(s) in the Emergency Department EKG: See my EKG interpretation above X-Ray: My interpretation is CXR image reviewed by me does not reveal consolidation or pulmonary edema. Counseling: I had a detailed discussion with the patient and/or guardian regarding the historical points, exam findings, and any diagnostic results supporting the discharge/admit diagnosis, lab results, radiology results, the need for outpatient follow up, to return to the emergency department if symptoms worsen or persist or if there are any questions or concerns that arise at home. Special discussion: Based on the patient's history, exam, and Dx evaluation, there is no indication for emergent intervention or inpatient Tx. It is understood by the patient/guardian that if the Sx's persist or worsen they need to return immediately for re-evaluation. ED course: Discussed troponin from 4.2-5.2 with patient. Patient to follow-up with primary care physician 2 to 3 days. All questions were answered. Return precautions were discussed include worsening symptoms, or any other concerns. On reevaluation patient is alert and orient x 4, no apparent distress, nontoxic-appearing, speaking full sentences.. 11/28 14:39 Order name: Basic Metabolic Panel; Complete Time: 15:41 ms3 11/28 14:39 Order name: CBC with Diff; Complete Time: 15:41 ms3 11/28 14:39 Order name: D-Dimer; Complete Time: 15:41 ms3 11/28 14:39 Order name: LFT's; Complete Time: 15:41 ms3 11/28 14:39 Order name: Magnesium; Complete Time: 15:41 ms3 11/28 14:39 Order name: NT PRO-BNP; Complete Time: 15:41 ms3 11/28 14:39 Order name: PT-INR; Complete Time: 15:41 ms3 11/28 14:39 Order name: Troponin HS; Complete Time: 15:41 ms3 11/28 16:20 Order name: Troponin High Sensitivity; Complete Time: 18:50 ms3 11/28 14:39 Order name: Chest Pa And Lat (2 Views) XRAY; Complete Time: 16:11 ms3 11/28 14:39 Order name: Shoulder Left (2 View) XRAY; Complete Time: 16:11 ms3 11/28 14:39 Order name: EKG; Complete Time: 14:40 ms3 11/28 14:39 Order name: Cardiac monitoring; Complete Time: 15:23 ms3 11/28 14:39 Order name: EKG - Nurse/Tech; Complete Time: 14:56 ms3 11/28 14:39 Order name: IV Saline Lock; Complete Time: 14:56 ms3 11/28 14:39 Order name: Labs collected and sent; Complete Time: 14:56 ms3 11/28 14:39 Order name: O2 Per Protocol; Complete Time: 14:45 ms3 11/28 14:39 Order name: O2 Sat Monitoring; Complete Time: 14:45 ms3 EC:12 Rate is 68 beats/min. Rhythm is regular. QRS Hanna is Normal. UT interval is normal. QRS ms3 interval is normal. QT interval is normal. Clinical impression: Normal ECG. Interpreted by me. Reviewed by me. Administered Medications: No medications were administered Disposition Summary: 11/28/24 18:55 Discharge Ordered Notes: Location: Home(11/28/24 18:55) ms3 Condition: Stable(11/28/24 18:55) ms3 Diagnosis - Chest pain, unspecified ms3 - Pain in left shoulder ms3 Followup: ms3 - With: Private Physician - When: 2 - 3 days - Reason: Recheck today's complaints Discharge Instructions: - Discharge Summary Sheet ms3 - Nonspecific Chest Pain, Adult ms3 - Musculoskeletal Pain ms3 Forms: - Medication Reconciliation Form ms3 - Antibiotic Education ms3 - Prescription Opioid Use ms3 - Patient Portal Instructions ms3 - Leadership Thank You Letter ms3 Signatures: Dispatcher [employer] EDMS Varun Elam DO DO ms3 Yael Roche RN RN zm DAVIS, DIANA, RN RN dd2 Corrections: (The following items were deleted from the chart) 14:29 14:29 Home ms3 ms3 14:29 14:29 Stable ms3 ms3 14:29 14:29 G Tube pain ms3 ms3 14:40 14:40 Chest Pa And Lat (2 Views)+RAD.RAD.BRZ ordered. EDMS EDMS 14:40 14:40 Shoulder Left 2 View+RAD.RAD.BRZ ordered. EDMS EDMS 16:19 16:19 Troponin High Sensitivity+C.LAB.BRZ ordered. EDMS EDMS
--- OUTSIDE RECORDS SUMMARY | 2024-11-28 14:36 | XMS REPORT | Continuity of Care Document ---
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 Name Role Phone Maikol Chowdhury Attending Clinician Unavailable Payers Payer Name Policy Type Policy Number Effective Date Expirati on Date Source [facility] 53 [id number] 2020 00:00:00 [facility] Problems Condition Name Condition Details Condition Category Status Onset Date Resolution Date Last Treatment Date Treating Clinician Comments Source [id number] Right nephrolith iasis Problem [facility] [id number] Right flank pain Problem [facility] [id number] Gross hematuria Problem [facility] Allergies, Adverse Reactions, Alerts Allergy Name Allergy Type Status Severity Reaction(s) Onset Date Inactive Date Treating Clinician Comments Source atorvast atin atorvast atin Active Unknown [facility] Social History Social Habit Start Date Stop Date Quantity Comments Source History of Tobacco Use [facility] Sex Assigned At [facility] Smoking Status Start Date Stop Date Source Never Smoker [facility] Medications Ordered Medication Name Filled Medication Name Start Date Stop Date Current Medication? Ordering Clinician Indication Dosage Frequency Signature (SIG) Comments Components Source Cimetidine 400 MG Cimetidine 400 MG No 1{table t_at_be dtime} QD Cimetidine 400 MG amLODIPine Besylate 5 MG amLODIPine Besylate 5 MG No 1{table t} QD amLODIPine Besylate 5 MG Nebivolol HCl 10 MG Nebivolol HCl 10 MG No 1{table t} QD Nebivolol HCl 10 MG Sodium Chloride 1 GM Sodium Chloride 1 GM No Sodium Chloride 1 GM Losartan Potassium 25 MG Losartan Potassium 25 MG No 1{table t} QD Losartan Potassium 25 MG Vital Signs Vital Name Observation Time Observation Value Comments S kala height 2023-09-08 13:15:00 62 [in_i] Commo n [facility] weight 2023-09-08 13:15:00 129 [lb_av] Comm on [facility] temperature 2023-09-08 13:15:00 97.2 [degF] Com [facility] bmi 2023-09-08 13:15:00 23.59 kg/m2 Comm on [facility] oximetry 2023-09-08 13:15:00 98 % Commo n [facility] blood pressure systolic 2023-09-08 13:15:00 126 mm[Hg] [facility] blood pressure diastolic 2023-09-08 13:15:00 82 mm[Hg] [facility] height 2023-08-04 14:30:00 62 [in_i] Commo n [facility] weight 2023-08-04 14:30:00 131 [lb_av] Comm on [facility] temperature 2023-08-04 14:30:00 97.6 [degF] Com [facility] bmi 2023-08-04 14:30:00 23.96 kg/m2 Comm on [facility] oximetry 2023-08-04 14:30:00 97 % Commo n [facility] respiratory rate 2023-08-04 14:30:00 18 /min [facility] blood pressure systolic 2023-08-04 14:30:00 126 mm[Hg] [facility] blood pressure diastolic 2023-08-04 14:30:00 68 mm[Hg] [facility] Encounters Start Date/Time End Date/Time Encounter Type Admission Type Attending Clinicians Care Facility Care Department Encounter ID Source 2023-10-12 07:02:00 Outpatient Maikol Chowdhury [facility] [id number] [facility] 2023-08-05 10:13:01 [facility] [id number] [facility] 2023-08-04 13:43:01 Out[facility] [id number] [facility] 2023-09-08 00:00:00 2023-09-08 00:00:00 OFFICE VISIT ESTAB PT LEVEL 2 [facility] [id number] [facility] 2023-08-04 00:00:00 2023-08-04 00:00:00 OFFICE VISIT NEW PT LEVEL 3 [facility] [id number] [facility]
[2024-11-28 15:01] LABS: Absolute Lymphocytes (CBC) 1.2 K/uL (0.7-4.9); Hematocrit 40.4 % (36.0-45.0); Hemoglobin 13.5 g/dL (12.0-15.0); MCH 28.2 pg (27.0-35.0); MCHC 33.4 g/dL (32.0-36.0); MCV 84.6 fL (80-100); MPV 7.9 fL (7.6-11.3); Nucleated RBC Absolute Count 0.0 (0-0); Nucleated Red Blood Cells % 0.0 % (0-0); RBC Red Blood Cell Count 4.78 M/uL (3.86-4.86); White Blood Count 5.70 thou/uL (4.3-10.9)
[2024-11-28 15:08] LABS: D-Dimer 0.407 FEUug/mL (0-0.500); PT Prothrombin Time 12.2 SECONDS (10-13.0); Protime INR 1.08
[2024-11-28 15:26] LABS: ALT/SGPT 50.0 U/L (13-56); AST/SGOT 38.0 U/L (15-37); Albumin 3.9 g/dL (3.4-5.0); Albumin/Globulin Ratio 1.0 (1.1-1.8); Alkaline Phosphatase 126.0 U/L (45-117); Anion Gap 9.4 mEq/L (5.0-15.0); BUN Blood Urea Nitrogen 13.0 mg/dL (7-18); Bilirubin Indirect, Calculated 0.4 mg/dL (0.2-0.8); Globulin 3.9 g/dL (2.3-3.5); Glucose Level 112.0 mg/dL (74-106); Magnesium 2.4 mg/dL (1.6-2.4); NT PRO-BNP 82.0 pg/mL (<125); Potassium 3.4 mEq/L (3.5-5.1); Troponin High Sensitivity 4.2 pg/mL (<58.9)
--- NOTE | 2024-11-28 15:55 | RAD REPORT ---
EXAMINATION: TWO VIEW CHEST XR CLINICAL INDICATION: Female, 74 years old. [facility] MAIN CHEST PAIN Bed Name: [id number] TECHNIQUE: 2 view radiographs of the chest were performed. COMPARISON: 07/18/2023 FINDINGS: The lungs are well inflated and clear. No pneumothorax or sizable effusion. The heart is normal in si ze. Mediastinal contours are unremarkable. IMPRESSION: No acute or significant abnormalities.
--- NOTE | 2024-11-28 15:56 | RAD REPORT ---
EXAMINATION: XR LEFT SHOULDER CLINICAL INDICATION: Female, 74 years old. PAIN TECHNIQUE: Internal and external AP view radiograph of the left shoulder were obtained. COMPARISON: No prior exam. FINDINGS: No evidence of fracture or dislocation. Normal alignment. Mild AC degenerative changes. No other focal bone lesion. Soft tissues are unremarkable. IMPRESSION: No acute osseous abnormalities. Mild degenerative changes..
--- NOTE | 2024-11-28 18:55 | ER ---
Nurse's Notes [facility] Name: Risa Estrada Age: 74 yrs Sex: Female : 1950 Arrival Date: 11/28/2024 Time: 14:17 Bed 5 Private MD: Diagnosis: Chest pain, unspecified;Pain in left shoulder Presentation: 11/28 14:38 Chief complaint: Patient states: LT SHOULDER PAIN THAT RADIATES DOWN LT ARM X 3 DAYS dd2 AND CHEST PAIN THAT BEGAN THIS MORNING. Coronavirus screen: At this time, the client does not indicate any symptoms associated with coronavirus-19. Ebola Screen: No symptoms or risks identified at this time. Initial Sepsis Screen: Does the patient meet any 2 criteria? No. Patient's initial sepsis screen is negative. Does the patient have a suspected source of infection? No. Patient's initial sepsis screen is negative. Risk Assessment: Do you want to hurt yourself or someone else? Patient reports no desire to harm self or others. Onset of symptoms was November 25, 2024. 14:38 Method Of Arrival: Ambulatory dd2 14:38 Acuity: ISIS 3 dd2 Triage Assessment: 14:39 General: Appears in no apparent distress. uncomfortable, Behavior is calm, cooperative, dd2 appropriate for age. Pain: Complains of pain in chest and anterior aspect of left shoulder Pain radiates to left arm. Cardiovascular: Reports chest pain. Musculoskeletal: Reports pain in anterior aspect of left shoulder. Historical: - Allergies: 14:39 Lipitor; dd2 14:39 SUCRALFATE; dd2 - PMHx: 14:39 chronic kidney disease; Gastric Reflux; Hypertension; palpitations; dd2 - PSHx: 14:39 Cholecystectomy; Total abdominal hysterectomy; dd2 - Immunization history:: Adult Immunizations unknown. - Infectious Disease History:: Denies. - Social history:: Smoking status: Patient denies any tobacco usage or history of. Screenin:00 [facility] ED Fall Risk Assessment (Adult) History of falling in the last 3 months, zm including since admission No falls in past 3 months (0 pts) Confusion or Disorientation No (0 pts) Intoxicated or Sedated No (0 pts) Impaired Gait No (0 pts) Mobility Assist Device Used No (0 pt) Altered Elimination No (0 pt) Score/Fall Risk Level 0 - 2 = Low Risk Oriented to surroundings, Maintained a safe environment, Educated pt \T\ family on fall prevention, incl call for assistance when getting out of bed, Assessed \T\ reinforced patient's understanding of fall precautions, Hourly rounding (assess needs \T\ fall precautionary measures) done, Used ambulatory aids as needed (educated on \T\ assisted with), Used gait belt as appropriate. Abuse screen: Denies threats or abuse. Denies injuries from another. 15:00 Nutritional screening: No deficits noted. Tuberculosis screening: No symptoms or risk zm factors identified. Assessment: 14:50 General: Appears in no apparent distress. uncomfortable, Behavior is calm, cooperative. zm Pain: Complains of pain in right rib and right shoulder pain Pain currently is 4 out of 10 on a pain scale. 14:50 Neuro: Level of Consciousness is awake, alert, obeys commands, Oriented to person, zm place, time, situation. Cardiovascular: Capillary refill < 3 seconds in bilateral fingers Patient's skin is warm and dry. Respiratory: Airway is patent Respiratory effort is even, unlabored, Respiratory pattern is regular, symmetrical. Musculoskeletal: Circulation, motion, and sensation intact. Range of motion: intact in all extremities. 16:50 Reassessment: Patient appears in no apparent distress at this time. No changes from zm previously documented assessment. Patient and/or family updated on plan of care and expected duration. Pain level reassessed. Patient is alert, oriented x 3, equal unlabored respirations, skin warm/dry/pink. Patient states feeling better. Patient states symptoms have improved. 16:50 Pain: Pain currently is 2 out of 10 on a pain scale. zm 18:45 Reassessment: Patient appears in no apparent distress at this time. No changes from zm previously documented assessment. Patient and/or family updated on plan of care and expected duration. Pain level reassessed. Patient is alert, oriented x 3, equal unlabored respirations, skin warm/dry/pink. Patient denies pain at this time. Patient states feeling better. Patient states symptoms have improved. Vital Signs: 14:38 BP 162 / 80; Pulse 79; Resp 16; Temp 98.1; Pulse Ox 98% ; Weight 60.33 kg; Pain 4/10; dd2 15:30 BP 143 / 75; Pulse 61; Resp 18; Temp 98.2; Pulse Ox 100% on R/A; Pain 2/10; zm 16:54 BP 132 / 75; Pulse 58; Resp 16; Temp 98.3; Pulse Ox 98% on R/A; Pain 2/10; zm 18:46 BP 133 / 77; Pulse 58; Resp 16; Temp 98.1; Pulse Ox 100% on R/A; Pain 0/10; zm 19:15 BP 147 / 85; Pulse 60; Resp 18; Pulse Ox 100% on R/A; af3 14:38 Pain Scale: Adult dd2 15:30 Pain Scale: Adult zm 16:54 Pain Scale: Adult zm 18:46 Pain Scale: Adult zm Claudia Coma Score: 15:30 Eye Response: spontaneous(4). Motor Response: obeys commands(6). Verbal Response: zm oriented(5). Total: 15. 16:54 Eye Response: spontaneous(4). Motor Response: obeys commands(6). Verbal Response: zm oriented(5). Total: 15. 18:46 Eye Response: spontaneous(4). Motor Response: obeys commands(6). Verbal Response: zm oriented(5). Total: 15. ED Course: 14:22 Patient arrived in ED. cj3 14:26 Varun Elam DO is Attending Physician. ms3 14:39 Triage completed. dd2 14:39 Arm band placed on right wrist. dd2 14:45 Yael Roche, RN is Primary Nurse. zm 14:56 EKG done, by ED staff, reviewed by Varun Elam DO. ap3 14:56 Initial lab(s) drawn, by mt, sent to lab. Inserted saline lock: 20 gauge in right zm antecubital area, using aseptic technique. Blood collected. Flushed with 10 mL NS. 15:00 Patient has correct armband on for positive identification. Placed in gown. Bed in low zm position. Call light in reach. Side rails up X 1. Provided Education on: call light use. Client placed on continuous cardiac and pulse oximetry monitoring. NIBP monitoring applied. environmental monitoring technician on. Door closed. Noise minimized. Lights dimmed. Warm blanket given. Verbal reassurance given. 15:31 Chest Pa And Lat (2 Views) XRAY In Process Unspecified. EDMS 15:31 Shoulder Left (2 View) XRAY In Process Unspecified. EDMS 16:56 No provider procedures requiring assistance completed. zm 17:24 Repeat lab(s) drawn. by me, sent to lab. ap3 17:24 Troponin High Sensitivity Sent. ap3 Administered Medications: No medications were administered Medication: 16:56 VIS not applicable for this client. zm Outcome: 14:29 Discharge ordered by MD. ms3 18:55 Discharge ordered by MD. ms3 19:16 Patient left the ED. af3 Signatures: Dispatcher [employer] EDMS Cordelia Shine, RN RN ap3 Varun Elam DO DO ms3 Yael Roche RN RN Angeles Mckinnon RN RN af3 MAR MALDONADO RN RN dd2 Michelle France cj3 Corrections: (The following items were deleted from the chart) 16:56 15:00 No provider procedures requiring assistance completed. zm zm 18:50 18:46 BP 133 / 77; Pulse 58bpm; Resp 16bpm; Pulse Ox 100% RA; Temp 98.1F; zm zm 18:50 18:45 Reassessment: Patient appears in no apparent distress at this time. No changes zm from previously documented assessment. Patient and/or family updated on plan of care and expected duration. Pain level reassessed. Patient is alert, oriented x 3, equal unlabored respirations, skin warm/dry/pink. zm
[2024-11-28 21:48] VITALS: TEMP 98.1; O2SAT 100
[2024-11-28 21:49] VITALS: BP 147/85
== END 2024-11-28 19:16 | disposition home or self-care (01) ==
LOC: ER 14:17
DX: R07.9 Chest pain, unspecified (principal); M25.512 Pain in left shoulder; I12.9 Hypertensive chronic kidney disease with stage 1 through stage 4 chronic kidney disease, or unspecified chronic kidney disease; N18.9 Chronic kidney disease, unspecified
CPT/HCPCS: 36415; 71046; 80048; 80076; 83735; 83880; 84484; 85025; 85379; 85610; 93005; 99284